=== PATIENT | female | born 1960 | race Caucasian/White ===

== ENCOUNTER 2024-01-24 18:10 | Inpatient (IN) | payer MEDICARE, SELFPAY ==
[2024-01-24] VITALS (9 sets, daily range): BP systolic 95–117; BP diastolic 48–75; BMI 21.1
--- NOTE | 2024-01-24 15:00 | ED.GENMED ---
History of Present Illness
General
Chief Complaint: Dizziness
Time Seen by Provider: 01/24/24 15:00
History of Present Illness
History of Present Illness:
HPI: COVID 1M ago - weak since then. 1.5wks of dizziness intermittently. Worse when gets up and moves around. 3 days ago, she had vomiting and diarrhea which resolved after a day. No associated pain. When she had the diarrhea the other day, she
noted that it was dark brown to almost black. She admits to Excedrin and Motrin use.
EXAM:
GENERAL: Fairly well appearing in no distress but appears somewhat pale
HEENT: Moist oral mucosa, ear canals are clear, normal TMs
CARDIOVASCULAR: No murmurs, normal heart rate, regular rhythm, No chest wall tenderness
PULMONARY: No respiratory distress, breath sounds are clear and equal
ABDOMEN: Soft with no peritoneal signs, no tenderness
NEUROLOGIC: Excellent strength all extremities, no coordination deficits, normal finger-nose testing, normal fgmo-ij-hbol testing
PSYCHIATRIC: Appropriate mental status, normal insight and judgement
EXTREMITIES: Nontender, no edema, moves all extremities equally
SKIN: Appears somewhat pale
TIME OF INITIAL ENCOUNTER: 3:20 PM
NUMBER AND COMPLEXITY OF PROBLEMS ADDRESSED AT THE ENCOUNTER
� Chronic conditions affecting care: High blood pressure, hyperlipidemia, breast cancer�not metastatic and had a left mastectomy
� Acute Exacerbation and/or Progression of Chronic Illness: This is an acute problem
� Differential Diagnosis includes: Dehydration, BERENICE, anemia, BPPV
AMOUNT AND/OR COMPLEXITY OF DATA TO BE REVIEWED AND ANALYZED
� I performed an independent evaluation of and my interpretation is:
EKG: Sinus 115, nonspecific ST abnormality
CT:
X-rays:
Laboratory Studies: Hemoglobin today 6.5, white count 6.5, BUN millimeter elevated, normal creatinine.
Other:
� Review of other/old records: I reviewed blood work from 1 year ago�at that time hemoglobin is 10.8,
� Clinical information was obtained by an independent historian: I spoke to bedside
� Prescriptions/Medications Considered but not given:
� Further testing considered but not performed:
RISK OF COMPLICATIONS AND/OR MORBIDITY OR MORTALITY OF PATIENT MANAGEMENT
� Social determinants of health affecting care: Lives at home
� Discussion with other providers: Notified gastroenterology and hospitalist for admission, Dr. Putnam at 3:40 PM
� Escalation of care including admission/observation vs risk of discharge considered: Suspect that the patient's weakness and dizziness are related to significant drop in hemoglobin now down to 6.5. Planning blood transfusion.
She uses Excedrin and Advil intermittently. Will give 2 units of blood and Protonix.
Past History
Past History
ED Past Medical History: HTN and Hypercholesterolemia
Social History
Employment: Employed
Phy Exam
Physical Exam
Physical Exam:
See HPI
Course
Orders/Labs/Results
Orders:
Orders
01/24/24 14:30
EKG [Electrocardiogram (*1)] Urgent
Reason for Study: Vertigo / Dizzy
EKG- Treatment ONCE
01/24/24 15:05
Type+Screen Urgent
Basic Metabolic Panel Urgent
Complete Blood Count/With Diff Urgent
01/24/24 15:26
Add On- LAB Urgent
Tests Added?: iron, TIBC, ferritin
* Blood Bank Products Urgent
Blood Bank Products: *Packed RBC Leuko(PRBC's)
Quantity: 2
Transfuse Today: Yes
Reason: Anemia
01/24/24 15:29
0.9% Sodium Chloride 1000 ml [Nss] 1,000 ml IV BOLUS
01/24/24 15:37
Pantoprazole [Protonix IV] 40 mg IV NOW STA
01/24/24 15:44
ABO2 Urgent
BBK Wristband Number:
Associate notified that ABO2 has been ordered: [id number]
Date: 01/24/24
Time: 15:21
Reed Maker ID: [id number]
Abnormal Lab Results
01/24/24
15:05
RBC 1.96 L 10^6/uL
(4.20-5.40)
Hgb 6.5 L* g/dL
(12.0-16.0)
Hct 19.6 L* %
(37.0-47.0)
MCV 100.0 H fL
(81.0-99.0)
MCH 33.2 H pg
(27.0-31.0)
RDW 16.1 H %
(11.5-14.5)
Carbon Dioxide 21 L mmol/L
(22-30)
BUN 22 H mg/dl
(7-17)
Glucose 117 H mg/dl
(70-99)
01/24/24 15:05
01/24/24 15:05
Vital Signs
Initial and Last Documented VS:
Initial Vital Signs
Temp Pulse Resp BP Pulse Ox
98.3 F 95 20 95/57 100
01/24/24 14:32 01/24/24 14:32 01/24/24 14:32 01/24/24 14:32 01/24/24 14:32
Last Documented Vital Signs
Temp Pulse Resp BP Pulse Ox
98.3 F 93 22 95/57 100
01/24/24 14:32 01/24/24 15:45 01/24/24 15:45 01/24/24 14:32 01/24/24 14:32
*Critical Care Note
Total Time (30-74mins, 75-104mins- exclusive of procedures): Not Applicable
ED Attending Note
-
Portions of this chart may have been created with voice recognition software.� Occasional wrong word or��sound alike� substitutions may have occurred due to the inherent limitations of voice recognition software.
Discharge Plan
Departure
Patient Disposition: Admit
Date of Disposition: 01/24/24
Time of Disposition: 15:46
Presentation/result/management discussed w/ accepting MD/DO: Hospitalist
Discharge Problem:
Symptomatic anemia
Interventions
Interventions:
*Risk Screen - Suicide Last Done: 01/24/24 14:32
*General Assessment Last Done: 01/24/24 14:32
*Neglect/Abuse Screening Last Done: 01/24/24 14:32
Discharge Date and Time
Print Language: YORUBA
[2024-01-24 15:21] LABS: % Basophils 0.9 % (0-2); % Eosinophils 1.3 % (0-6); % Immature Granulocytes 0.3 % (0-0.5); % Lymphocytes 23.1 % (20.5-51.1); % Monocytes 8.6 % (1.7-9.3); % Neutrophils 65.7 % (42.2-75.2); Absolute Basophils 0.1 10^3/uL (0-0.2); Absolute Eosinophils 0.1 10^3/uL (0-0.7); Absolute Lymphocytes 1.6 10^3/uL (1.2-3.4); Absolute Monocytes 0.6 10^3/uL (0.1-0.6); Absolute Neutrophils 4.3 10^3/uL (1.4-6.5); Hematocrit 19.6 % (37.0-47.0); Hemoglobin 6.5 g/dL (12.0-16.0); Mean Corp Hgb Conc. 33.2 g/dL (33.0-37.0); Mean Corpuscular Hgb 33.2 pg (27.0-31.0); Mean Platelet Volume 9.5 fL (7.4-10.4); Nucleated Red Blood Cells % 0.3 %; Platelet Count 342 10^3/uL (130-400); Red Blood Cell Count 1.96 10^6/uL (4.20-5.40); Red Cell Dist. Width 16.1 % (11.5-14.5); White Blood Cell Count 6.5 10^3/uL (4.8-10.8)
[2024-01-24 15:35] LABS: Blood Urea Nitrogen 22 mg/dl (7-17); Calcium 9.5 mg/dl (8.4-10.2); Carbon Dioxide 21 mmol/L (22-30); Chloride 98 mmol/L (98-107); Glucose 117 mg/dl (70-99); Sodium 135 mmol/L (135-145); eGFR > 60.00
--- NOTE | 2024-01-24 15:52 | HPS.HSE ---
Family Physician
-
Family Physician:
Chief Complaint
-
dizziness
History of Present Illness
64F HTN HLD Chronic Headache on daily Excedrin Depression remote hx Breast Ca 2021 p/w progressive intermittent dizziness. Approximately 7 days patient had an episode of abd pain nausea vomiting diarrhea w/ dark/black stools. Overall patient
improved with intermittent bouts of diarrhea next few days before developing constipation and appetite loss. Denies abd pain. Nausea vomiting resolved. Intermittent episodes of dizziness however became more severe and frequent prompting visit to
ED. Notable pallor as per significant other boyfriend of 30 years. Low normotensive pressures with hx htn. Patient was found to have severe anemia Hgb 6.5. Patient symptomatically improved with bedrest and IVF.
Medical History
Past Medical History
Past Medical History: Reports Other (as above)
Past Surgical History: Reports Other (as above)
Social History
Tobacco: Former Smoker
Alcohol: Other (reports 2 glasses hard liquor vodka mixed drink 3x a week)
Drug: None
Personal: Partner (Boyfriend of 30 years Yoel)
Living: Alone
Employment: Retired
Family History
Family History: Not pertinent (reviewed)
Allergies / Home Medications
Allergies reflects when Allergies were last updated in [facility].
Home Medications with original date entered in [facility]
Allergy/Medication List:
Allergies
Allergy/AdvReac Type Severity Reaction Status Date / Time
No Known Allergies Allergy Verified 01/24/24 14:35
Home Medications
emwmpno-cgahwvdhylanj-haygvexe 250 mg-250 mg-65 mg tablet (Excedrin Extra Strength) 1 tab PO DAILYPRN PRN headache 01/24/24
gabapentin 300 mg capsule 300 mg PO DAILYPRN PRN neuropathy 01/24/24
melatonin 2.5 mg chewable tablet 2.5 mg PO HSPRN PRN sleep 01/24/24
pantoprazole 20 mg tablet,delayed release 40 mg PO DAILYPRN PRN heartburn 10/01/24
paroxetine HCl 20 mg tablet 20 mg PO DAILY 01/24/24
simvastatin 20 mg tablet 20 mg PO QPM 01/24/24
therapeutic multivitamin 1 tab PO DAILYPRN PRN supplement 01/24/24
valsartan 160 mg tablet 160 mg PO DAILY 01/24/24
Review of Systems
-
A 12 point ROS was completed and negative except as noted: Yes
Constitutional: Reports Other (as below)
Physical Exam
Vital Signs
Vital Signs
Temp Pulse Resp BP Pulse Ox
98.3 F 93 22 95/57 100
01/24/24 14:32 01/24/24 15:45 01/24/24 15:45 01/24/24 14:32 01/24/24 14:32
Physical Exam
General: Other (as below)
Laboratory Results
-
01/24/24 15:05
01/24/24 15:05
Laboratory Results
Total Bilirubin Cancelled 01/24/24 15:05
AST Cancelled 01/24/24 15:05
ALT Cancelled 01/24/24 15:05
Alkaline Phosphatase Cancelled 01/24/24 15:05
Impression/Plan
-
ROS
General: Denies fever chills night sweats unexpected weight loss
Neuro: Denies seizure shaking loss of consciousness reports intermittent progressive dizziness/lightheadedness
Psych: denies depression hallucinations confusion manic episodes
Endocrine: Denies polyuria polydipsia polyphagia heat/cold intolerance
HEENT: Denies blindness visual disturbances epistaxis
Pulmonary: denies coughing hemoptysis sneezing sob dyspnea on exertion
Cardiovascular: denies chest pain palpitations leg swelling
Hematology: denies signs symptoms of anemia easy bruising/bleeding
Gastrointestinal: Reports previous episode nausea vomiting diarrhea abd pain dark stools currently endorses constipation flatus+
Genito-Urinary: denies retention incontinence dysuria
Musculoskeletal: denies joint pain weakness
Dermatology: denies rash laceration bruising
Physical Exam
General: No cyanosis, or jaundice. Pallor noted
HEENT: Throat clear. PERRLA Normocephalic atraumatic, pale palpebral conjunctiva
NECK: Supple. No JVD Carotid Bruits
RESPIRATORY: Lungs clear to auscultation. No crackles wheezes stridor
CVS: S1, S2 normal. RRR. No murmur, rub or gallop.
ABDOMEN: Soft, non-tender. No distension. Decreased Bowel Sounds
EXTREMITIES: No peripheral cyanosis or edema.
POOLROOM TABLE ATTENDANT: AOx3
IMPRESSION:
64F HTN HLD Chronic Headache on daily Excedrin Depression remote hx Breast Ca 2021 p/w progressive intermittent dizziness. Approximately 7 days patient had an episode of abd pain nausea vomiting diarrhea w/ dark/black stools. Overall patient
improved with intermittent bouts of diarrhea next few days before developing constipation and appetite loss. Denies abd pain. Nausea vomiting resolved. Intermittent episodes of dizziness however became more severe and frequent prompting visit to
ED. Notable pallor as per significant other boyfriend of 30 years. Low normotensive pressures with hx htn. Patient was found to have severe anemia Hgb 6.5. Patient symptomatically improved with bedrest and IVF.
PLAN:
#Severe Anemia suspected 2/2 UGIB NSAID induced
#Dizziness likely 2/2 symptomatic anemia
Tele Admit
GI eval appreciated NPO after midnight for EGD
Clear liquid diet for today
2PRBC transfusions ordered in ED, follow up post-transfusion response w/ AM labs
Transfuse prn Hgb<8 given concern active bleeding
Hold further NSAID use
protonix gtt
fall precautions
#HTN
hold home valsartan given soft pressures
consider resuming at reduced dosage depending on BP trend
#HLD
cont statin
#Chronic Headache for years per patient
Tylenol PRN
avoid NSAID
#Depression
cont home paroxetine
#Possible ETOH use disorder/Binge drinking
endorses drinking hard liquor mixed drinks 2 glasses 3x a week
positive ETOH screening protocol per nurse assessment
-per report, weekly having >4 drinks a day in past 6 months
MSAS protocol for now
folate thiamine supplementation
denies hx ETOH withdrawal
dvt ppx SCD
Full Code
discussed with patient, patient's significant other Yoel, and GI
I spent a total of 76 minutes with the patient or on the floor. More than 50% of this time involved counseling and coordination of care.
[2024-01-24] MEDS: PROTONIX IV 40 MG IV ×2 (16:07→21:22)
[2024-01-24] MEDS: NSS 1000 IV (16:07)
[2024-01-24 18:00] LABS: Iron 88 ug/dl (37-170)
[2024-01-24 18:09] LABS: Percent Saturation 29 % (20-50); Total Iron Binding Capacity 302 ug/dl (265-497)
[2024-01-24] MEDS: THIAMINE INJECTION 200 MG IV (20:17)
[2024-01-24] MEDS: LIPITOR 10 MG PO (20:18)
[2024-01-24] MEDS: PROTONIX 100 IV (20:22)
[2024-01-24] MEDS: NSS (PRESERVATIVE FREE) 10 ML IV (21:22)
[2024-01-24 21:26] LABS: APTT 22.7 Sec (23.4-35.0)
[2024-01-24] MEDS: PROTONIX IV (21:28)
[2024-01-25] VITALS (9 sets, daily range): BP systolic 93–134; BP diastolic 53–72
[2024-01-25] MEDS: MELATONIN 2.5 MG PO
[2024-01-25] MEDS: PROTONIX 100 IV (04:46)
--- NOTE | 2024-01-25 07:17 | W.PN.HOSP.TC ---
Today's Communication/Plan
-
monitor H&H
diet as per GI
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
Likely discharge tomorrow if remains stable/continues to improve
Assessment / Plan
Assessment / Plan
Physical Exam
General: No cyanosis, or jaundice. Pallor noted improved
HEENT: Throat clear. PERRLA Normocephalic atraumatic
NECK: Supple. No JVD Carotid Bruits
RESPIRATORY: Lungs clear to auscultation. No crackles wheezes stridor
CVS: S1, S2 normal. RRR. No murmur, rub or gallop.
ABDOMEN: Soft, non-tender. No distension. Decreased Bowel Sounds
EXTREMITIES: No peripheral cyanosis or edema.
ROBOT TECHNICIAN: AOx3
IMPRESSION:
64F HTN HLD Chronic Headache on daily Excedrin Depression remote hx Breast Ca 2021 p/w progressive intermittent dizziness. Approximately 7 days patient had an episode of abd pain nausea vomiting diarrhea w/ dark/black stools. Overall patient
improved with intermittent bouts of diarrhea next few days before developing constipation and appetite loss. Denies abd pain. Nausea vomiting resolved. Intermittent episodes of dizziness however became more severe and frequent prompting visit to
ED. Notable pallor as per significant other boyfriend of 30 years. Low normotensive pressures with hx htn. Patient was found to have severe anemia Hgb 6.5. Patient symptomatically improved with bedrest and IVF.
PLAN:
#Severe Anemia suspected 2/2 UGIB NSAID induced
#Dizziness likely 2/2 symptomatic anemia
Tele Admit, stable since admission, ok to discontinue cardiac monitoring
responded appropriately to 2PRBC transfusions
Hold further NSAID use
GI eval appreciated s/p EGD
-3 nonbleeding ulcers noted in duodenum
-non-obstructing Schatzki ring
-small hiatal hernia
-erythema gastric body antrum biopsied
protonix gtt converted to PO BID for 2 months then daily
repeat EGD and colonoscopy in 3 months recommended
#HTN
hold home valsartan given soft pressures
consider resuming at reduced dosage depending on BP trend
#HLD
cont statin
#Chronic Headache for years per patient
Tylenol PRN
avoid NSAID
#Depression
cont home paroxetine
#Possible ETOH use disorder/Binge drinking
endorses drinking hard liquor mixed drinks 2 glasses 3x a week
positive ETOH screening protocol per nurse assessment
-per report, weekly having >4 drinks a day in past 6 months
MSAS protocol for now
folate thiamine supplementation
denies hx ETOH withdrawal
dvt ppx SCD
Full Code
discussed with patient and her sister Zenia
I spent a total of 50 minutes with the patient or on the floor. More than 50% of this time involved counseling and coordination of care.
Anticipated Discharge: Within 24 hours
Subjective/Interval History
-
Date of Service: January 25, 2024
No acute distress reports feeling well. S/P EGD. tolerating diet. Denies dizziness headache.
Objective Data
-
Labs:
Laboratory Results
01/24/24 01/24/24 01/25/24
15:05 20:40 06:00
WBC Pending
Hgb Pending
Hct Pending
Plt Count Pending
PT 14.0
INR 1.10
APTT 22.7 L
Sodium 135 Pending
Potassium Pending
Chloride 98 Pending
Carbon Dioxide 21 L Pending
BUN 22 H Pending
Creatinine 0.7 Pending
Glucose 117 H Pending
Calcium 9.5 Pending
Total Bilirubin Cancelled
AST Cancelled
ALT Cancelled
Alkaline Phosphatase Cancelled
Vital Signs:
Vital Signs
Temp Pulse Resp BP Pulse Ox
98.4 F 80 16 103/58 99
01/25/24 04:49 01/25/24 03:55 01/25/24 03:55 01/25/24 03:55 01/25/24 03:55
I&O
01/24/24 01/25/24 01/26/24
06:59 06:59 06:59
Intake Total 1100 / 1100
Balance 1100 / 1100
[2024-01-25] MEDS: FOLVITE 1 MG PO (09:19)
[2024-01-25] MEDS: THIAMINE INJECTION 200 MG IV ×2 (09:19→20:03)
[2024-01-25] MEDS: PAXIL 20 MG PO (09:33)
[2024-01-25 09:34] LABS: Hemoglobin 8.4 g/dL (12.0-16.0); Mean Corp Hgb Conc. 33.6 g/dL (33.0-37.0); Mean Corpuscular Hgb 30.5 pg (27.0-31.0); Mean Corpuscular Volume 90.9 fL (81.0-99.0); Mean Platelet Volume 9.5 fL (7.4-10.4); Platelet Count 234 10^3/uL (130-400); Red Blood Cell Count 2.75 10^6/uL (4.20-5.40); Red Cell Dist. Width 19.2 % (11.5-14.5); White Blood Cell Count 6.2 10^3/uL (4.8-10.8)
--- NOTE | 2024-01-25 11:02 | W.PN.UPDATE ---
Update Note
Progress Note Update
EGD with clean based duodenal ulcers and gastric erosions with gastritis, HH and schatzki ring, no active bleeding or stigmata seen. Will DC PPI gtt and switch to PO PPI bid, repeat EGd with colo in 3 months, AVOID NSAIDs. OK to DC home today
--- NOTE | 2024-01-25 12:00 | PTCARENOTE ---
Received patient from PACU s/p EGD. AAox3, assisted to bed. No complaints at present time. Call jones in close reach.
[2024-01-25 12:31] LABS: Blood Urea Nitrogen 14 mg/dl (7-17); Calcium 9.1 mg/dl (8.4-10.2); Carbon Dioxide 26 mmol/L (22-30); Chloride 105 mmol/L (98-107); Estimated Creatinine Clearance 65 ml/min; Glucose 91 mg/dl (70-99); Potassium 4.3 mmol/L (3.5-5.1); Sodium 138 mmol/L (135-145); eGFR > 60.00
--- NOTE | 2024-01-25 16:20 | CM ---
met with patient at bedside.patient lives alone in [facility] with [address],her bed and bath is on the second level,she amb i,is i with her adl. she has had a vn after breast surgery.she has never been in ip rehab.
PCP: dr justyna huntley [facility]
PMH:depression,breast cancer 2021,headaches
patient has declined b cares support or resources
patient is adm with suspected upper gi bleed.she had an upper endosopy,po protonix,thiamine injections.plan: patient is totally I.patient will dc home with no needs.boyfriend will stay with her .
[2024-01-25] MEDS: LIPITOR 10 MG PO (17:23)
[2024-01-25 18:34] LABS: Hematocrit 25.1 % (37.0-47.0); Hemoglobin 8.6 g/dL (12.0-16.0)
[2024-01-25] MEDS: PROTONIX 40 MG PO (20:03)
[2024-01-26] MEDS: MELATONIN 2.5 MG PO
--- NOTE | 2024-01-26 07:29 | W.PN.HOSP.TC ---
Today's Communication/Plan
-
discharge
Assessment / Plan
Assessment / Plan
Physical Exam
General: No cyanosis or jaundice. Mild pallor
HEENT: Throat clear. PERRLA Normocephalic atraumatic
NECK: Supple. No JVD Carotid Bruits
RESPIRATORY: Lungs clear to auscultation. No crackles wheezes stridor
CVS: S1, S2 normal. RRR. No murmur, rub or gallop.
ABDOMEN: Soft, non-tender. No distension. Decreased Bowel Sounds
EXTREMITIES: No peripheral cyanosis or edema.
SUPERVISOR HEAT TREATING: AOx3
IMPRESSION:
64F HTN HLD Chronic Headache on daily Excedrin Depression remote hx Breast Ca 2021 p/w progressive intermittent dizziness. Approximately 7 days patient had an episode of abd pain nausea vomiting diarrhea w/ dark/black stools. Overall patient
improved with intermittent bouts of diarrhea next few days before developing constipation and appetite loss. Denies abd pain. Nausea vomiting resolved. Intermittent episodes of dizziness however became more severe and frequent prompting visit to
ED. Notable pallor as per significant other boyfriend of 30 years. Low normotensive pressures with hx htn. Patient was found to have severe anemia Hgb 6.5. Patient symptomatically improved with bedrest and IVF.
PLAN:
#Severe Anemia suspected 2/2 UGIB NSAID induced
#Dizziness likely 2/2 symptomatic anemia
Tele Admit, stable since admission, ok to discontinue cardiac monitoring
responded appropriately to 2PRBC transfusions
Hold further NSAID use
GI eval appreciated s/p EGD
-3 nonbleeding ulcers noted in duodenum
-non-obstructing Schatzki ring
-small hiatal hernia
-erythema gastric body antrum biopsied
protonix gtt converted to PO BID for 2 months then daily
repeat EGD and colonoscopy in 3 months recommended
H&H improving
B12 deficiency noted, supplementation started
#HTN
hold home valsartan given soft pressures
consider resuming at reduced dosage depending on BP trend
#HLD
cont statin
#Chronic Headache for years per patient
Tylenol PRN
avoid NSAID
#Depression
cont home paroxetine
#Possible ETOH use disorder/Binge drinking
endorses drinking hard liquor mixed drinks 2 glasses 3x a week
positive ETOH screening protocol per nurse assessment
-per report, weekly having >4 drinks a day in past 6 months
MSAS protocol for now
folate thiamine supplementation
denies hx ETOH withdrawal
No significant ETOH withdrawal symptoms noted
counseled to reduce alcohol intake
dvt ppx SCD
Full Code
Medically stable for discharge home with outpatient follow up recommendations
I spent a total of 40 minutes with the patient or on the floor. More than 50% of this time involved counseling and coordination of care.
Anticipated Discharge: Today
Subjective/Interval History
-
Date of Service: January 26, 2024
Seen and examined at bedside in no acute distress. Reports overall feeling well. Denies new acute issues. Eager to go home.
Objective Data
-
Labs:
Laboratory Results
01/26/24
06:00
Hgb Pending
Hct Pending
Vital Signs:
Vital Signs
Temp Pulse Resp BP Pulse Ox
98.2 F 85 16 114/60 98
01/25/24 23:35 01/25/24 23:35 01/25/24 23:35 01/25/24 23:35 01/25/24 23:35
I&O
01/25/24 01/26/24 01/27/24
06:59 06:59 06:59
Intake Total 1100 / 1100 960 / 960
Balance 1100 / 1100 960 / 960
[2024-01-26 08:11] VITALS: BP 105/64
[2024-01-26] MEDS: PAXIL 20 MG PO (08:27)
[2024-01-26] MEDS: FOLVITE 1 MG PO (08:27)
[2024-01-26] MEDS: THIAMINE INJECTION 200 MG IV (08:27)
[2024-01-26] MEDS: PROTONIX 40 MG PO (08:27)
[2024-01-26 08:38] LABS: Hemoglobin 8.1 g/dL (12.0-16.0)
--- NOTE | 2024-01-26 08:44 | W.PN.GI.CBS2 ---
Today's Communication / Plan
-
repeat HH at noon and if stable OK to DC
Assessment / Plan
-
Acute blood loss anemia secondary to upper GI bleed
Status post EGD 01/24 which showed HH, gastritis, gastric erosions and nonbleeding duodenal ulcers with no stigmata
Hemoglobin improved post 2 units of packed red blood cells, slight drop today with 2 episodes of small black stools yesterday which I think may be old blood doubt recurrent bleeding
Continue diet and repeat H&H around 12 PM if stable okay to DC home today
Repeat EGD along with colonoscopy in 3 months
Continue PPI twice daily for 2 months and then can use daily
Told her to avoid NSAIDs use and she is going to see her PCP for alternative medications for her headaches
Subjective
Subjective
Date of Service: January 26, 2024
She had 2 small black stools yesterday hemoglobin today is 8.1 down from 8.4 yesterday posttransfusion. No abdominal pain no vomiting or hematemesis
Objective
Data Reviewed
Laboratory Data:
Laboratory Results
01/26/24 08:00
01/25/24 08:50
Laboratory Results
PT 14.0 Sec (11.4-14.6) 01/24/24 20:40
INR 1.10 01/24/24 20:40
APTT 22.7 Sec (23.4-35.0) L 01/24/24 20:40
Magnesium 2.0 mg/dl (1.6-2.3) 01/25/24 08:50
Total Bilirubin Cancelled 01/24/24 15:05
AST Cancelled 01/24/24 15:05
ALT Cancelled 01/24/24 15:05
Alkaline Phosphatase Cancelled 01/24/24 15:05
Vital Signs and I&O:
Vital Signs
Temp Pulse Resp BP Pulse Ox
98 F 76 18 105/64 98
01/26/24 08:11 01/26/24 08:11 01/26/24 08:11 01/26/24 08:11 01/26/24 08:11
I&O
01/25/24 01/26/24 01/27/24
06:59 06:59 06:59
Intake Total 1100 / 1100 960 / 960
Balance 1100 / 1100 960 / 960
01/25/24 EGD
Impression: - Non-obstructing Schatzki ring.
- Small hiatal hernia.
- Erosive gastropathy with no bleeding and no stigmata
of recent bleeding.
- Erythematous mucosa in the gastric body and antrum.
Biopsied.
- Non-bleeding duodenal ulcers with no stigmata of
bleeding.
- Normal second portion of the duodenum.
Physical Exam
Physical Exam
Cardiology: Normal Sinus Rhythm
Pulmonary: Clear
GI: Soft, Non Distended, Non Tender and Normal Bowel Sounds
--- NOTE | 2024-01-26 09:14 | W.PN.UPDATE ---
Update Note
Progress Note Update
Discussed with patient and updated her with the lab result hemoglobin drifted down to 8.1 told her to be n.p.o. for now, will repeat CBC at 10 AM and if hemoglobin is dropping further will schedule for second look endoscopy to rule out recurrent
bleeding but if hemoglobin is stable then will resume diet and DC home.
[2024-01-26 10:36] LABS: % Basophils 0.6 % (0-2); % Immature Granulocytes 0.4 % (0-0.5); % Lymphocytes 25.4 % (20.5-51.1); % Monocytes 9.7 % (1.7-9.3); % Neutrophils 61.9 % (42.2-75.2); Absolute Eosinophils 0.1 10^3/uL (0-0.7); Absolute Lymphocytes 1.8 10^3/uL (1.2-3.4); Absolute Monocytes 0.7 10^3/uL (0.1-0.6); Absolute Neutrophils 4.4 10^3/uL (1.4-6.5); Mean Corp Hgb Conc. 33.2 g/dL (33.0-37.0); Mean Corpuscular Volume 93.4 fL (81.0-99.0); Nucleated Red Blood Cells % 0 %; Platelet Count 259 10^3/uL (130-400); Red Blood Cell Count 2.58 10^6/uL (4.20-5.40); Red Cell Dist. Width 19.7 % (11.5-14.5)
[2024-01-26 11:17] LABS: Folate 8.3 ng/ml (2.76-20); Vitamin B12 286 pg/ml (239-931)
[2024-01-26 11:54] LABS: % Basophils 0.6 % (0-2); % Eosinophils 1.4 % (0-6); % Immature Granulocytes 0.5 % (0-0.5); % Lymphocytes 21.4 % (20.5-51.1); % Monocytes 8.9 % (1.7-9.3); % Neutrophils 67.2 % (42.2-75.2); Absolute Eosinophils 0.1 10^3/uL (0-0.7); Absolute Lymphocytes 1.4 10^3/uL (1.2-3.4); Absolute Monocytes 0.6 10^3/uL (0.1-0.6); Absolute Neutrophils 4.5 10^3/uL (1.4-6.5); Hematocrit 25.5 % (37.0-47.0); Hemoglobin 8.7 g/dL (12.0-16.0); Mean Corp Hgb Conc. 34.1 g/dL (33.0-37.0); Mean Corpuscular Hgb 31.3 pg (27.0-31.0); Mean Corpuscular Volume 91.7 fL (81.0-99.0); Mean Platelet Volume 9.3 fL (7.4-10.4); Nucleated Red Blood Cells % 0 %; Platelet Count 278 10^3/uL (130-400); Red Blood Cell Count 2.78 10^6/uL (4.20-5.40); Red Cell Dist. Width 19.6 % (11.5-14.5); White Blood Cell Count 6.6 10^3/uL (4.8-10.8)
--- NOTE | 2024-01-26 12:09 | W.PN.UPDATE ---
Update Note
Progress Note Update
Noted results of CBC at 10 AM hemoglobin stable at 8.7 will resume diet and okay to DC home today for outpatient repeat endoscopy along with colonoscopy in 3 months
--- NOTE | 2024-01-26 14:00 | W.DCSUMMARY ---
Discharge Summary
Discharge Data
Date of Admission: 01/24/24
Date of Discharge: 01/26/24
-
Pending Results: Yes
Additional Pending Results:
Biopsy results
Discharge Plan
-
Patient Disposition: Home (Routine Discharge)
Discharge Diagnosis/Procedures: Severe Symptomatic Anemia likely due to Upper GI bleed caused by peptic ulcer disease (NSAID induced)
B12 Deficiency also likely contributing to anemia
History Hypertension
Possible Alcohol Use Disorder/History Binge Drinking
Condition: Fair
Diet: Low Residue
Additional Diets: after 1 week from discharge, ok to advance diet as tolerated
Activity: As tolerated
Driving Restrictions: As prior to admission
Bathing Restrictions: None
Blood Work: With primary care provider, please repeat CBC in 1 week of discharge and B12 in 1 month
Others Tests: Please follow up with GI in 3 months for repeat EGD and Colonscopy
Activity Restrictions/Additional Instructions:
Please follow up with primary care provider in 1 week of discharge and GI in 3 months of discharge.
B12 supplementation has been prescribed for deficiency.
Protonix has been prescribed for peptic ulcer disease, NSAID induced. Continue with protonix 40 mg oral twice a day for 2 months then reduce to daily from then on until otherwise instructed by GI or your primary care provider.
Excedrin has been discontinued as medication has likely contributed to GI ulcer formation. At this time is recommended that you avoid NSAID medications or medications containing NSAID such as excedrin, ibuprofen, advil, aspirin, toradol etc.
Home Valsartan medication remains on hold at this time due to soft though normal blood pressures. Keep a daily log of your pressures at home and follow up with your primary care provider to determine when safe to resume valsartan, if necessary to
resume, and/or if an alternative agent is required instead.
Please take medications as prescribed/recommended and follow up with your primary care provider, GI, and/or other healthcare provider involved in your care for refills and/or further adjustment to your medication regimen as necessary.
With regards to Alcohol use:
-It is recommended that you avoid excess alcohol intake as this will likely lead to return/worsening of symptoms
-Avoid binge drinking defined as 4 or more drinks in a single occasion for women.
-Avoid heavy drinking defined as 8 or more drinks in a week for women.
Referrals:
Page Feliz MD [Family Provider] - in one week
Vaishali Peoples MD [Active] - (Follow up with GI in 3 months of discharge. )
Prescriptions:
New
cyanocobalamin (vitamin B-12) 1,000 mcg Tablet
1,000 mcg PO DAILY 30 Days Qty: 30 0RF
pantoprazole 40 mg Tablet,Delayed Release (Dr/Ec)
40 mg PO BID 60 Days Qty: 120 0RF
Rx Instructions:
Reduce to daily after this regimen completes. Follow up with primary or GI for new prescription
Continued
paroxetine HCl 20 mg tablet
20 mg PO DAILY
simvastatin 20 mg tablet
20 mg PO QPM
gabapentin 300 mg capsule
300 mg PO DAILYPRN PRN (Reason: neuropathy)
therapeutic multivitamin Tablet
1 tab PO DAILYPRN PRN (Reason: supplement)
melatonin 2.5 mg Tablet,Chewable
2.5 mg PO HSPRN PRN (Reason: sleep)
Held
valsartan 160 mg tablet
160 mg PO DAILY
Hold Instructions: On hold due to soft pressures though normal. Please keep a daily log of your pressures at home and follow up with primary care provider to determine when safe to resume, if necessary to resume, and/or if an alternative agent
is required instead.
Discontinued
pantoprazole 20 mg tablet,delayed release (DR/EC)
40 mg PO DAILYPRN PRN (Reason: heartburn)
Excedrin Extra Strength 250-250-65 mg Tablet
1 tab PO DAILYPRN PRN (Reason: headache)
Discharge Orders:
Discharge Patient (As Directed); Ordered 01/26/24
Ordered By: Arik Brown
Discharge Date and Time
Print Language: CROATIAN
[2024-01-26] MEDS: VITAMIN B-12 1000 MCG PO (14:45)
[2024-01-26] MEDS: FLUAD (65 yr+) 2024-2025 FORMULA 0.5 ML IM (15:00)
[2024-01-26 15:04] VITALS: BP 128/67
== END 2024-01-26 15:26 | disposition home or self-care (01) | DRG 378 ==
LOC: 4 EAST ACU 18:10
PROVIDERS: Internal Medicine Gastroenterology; ADMITTING PHYSICIAN Internal Medicine; EMERGENCY PHYSICIAN Emergency Medicine; FAMILY PHYSICIAN Family Medicine
PROC: 30233N1 Transfusion of Nonautologous Red Blood Cells into Peripheral Vein, Percutaneous Approach (ICD-10-PCS; 2024-01-24)
PROC: 0DB68ZX Excision of Stomach, Via Natural or Artificial Opening Endoscopic, Diagnostic (ICD-10-PCS; 2024-01-25)
DX: K26.4 Chronic or unspecified duodenal ulcer with hemorrhage (principal); D62 Acute posthemorrhagic anemia; K29.01 Acute gastritis with bleeding; K22.2 Esophageal obstruction; K44.9 Diaphragmatic hernia without obstruction or gangrene; K31.89 Other diseases of stomach and duodenum; T39.395A Adverse effect of other nonsteroidal anti-inflammatory drugs [NSAID], initial encounter; E53.8 Deficiency of other specified B group vitamins; I10 Essential (primary) hypertension; E78.00 Pure hypercholesterolemia, unspecified; F32.A Depression, unspecified; F10.10 Alcohol abuse, uncomplicated; Z85.3 Personal history of malignant neoplasm of breast; Z78.9 Other specified health status
CPT/HCPCS: 88305; 80048; 82607; 82728; 82746; 83540; 83550; 83735; 85014; 85018; 85025; 85027; 85610; 85730; 86850; 86900; 86901; 86920; 88342; 90662; 93005; 96361; 96374; 99285; G0008; P9016

== ENCOUNTER → 2024-01-28 10:02 | Outpatient (REF) | payer MEDICARE, SELFPAY ==
--- NOTE | 2024-01-24 16:33 | CON.GI ---
Consultation
-
Date/Time Consultation Requested: 01/24/24
Date/Time Consultation Performed: 01/24/24
Requesting Provider:
Performing Provider:
Reason for Consultation: UGIB
Medical History
Chief Complaint / HPI
Chief Complaint: melena, dizziness
History of Present Illness:
This is a pleasant 64-year-old female with past medical history of hypertension, hyperlipidemia, breast cancer diagnosed and treated in August 2021, GERD, chronic headaches, COVID in November 2023 who was in her usual state of health up until Tuesday
when she started to experience symptoms of nausea vomiting 3 episodes she had eaten pizza prior to that so she is unsure if she had hematemesis and then she started to have profound dizziness and weakness and she also had 2 episodes of dark stools
on Tuesday and 1 episode on and none since then. She now presented to the emergency room with symptoms of dizziness and her hemoglobin was noted to be 6.5 and on 02/16/2023 was 10.8, BUN was mildly elevated at 22. She takes Excedrin
extra strength 2 pills daily for the past couple of years for chronic headaches. She currently denies any abdominal pain. She denies use of aspirin. She does have occasional reflux and uses pantoprazole as needed. She says that she also had
COVID in November and since then she has had loss of appetite and loss of taste and has been eating less since then. Her last colonoscopy was in 2014 she had diverticulosis and a benign HP, she has never had an endoscopy in the past.
Past Medical History
Past Medical History: Other (breast cancer, HTN, HLD, anxiety, chronic headaches, GERD)
Past Surgical History: Other (lumpectomy 2021 for breast cancer)
Social History
Tobacco: Smoker
Alcohol: Occasional
Drug: None
Personal:
Living: With Family
Family History
Family History: Other (mother breast and uterine ca age 73, no family history colon or pancreatic ca, brother prostate ca, father prostate ca.)
Allergies / Home Medications
Allergy/AdvReac Type Severity Reaction Status Date / Time
No Known Allergies Allergy Verified 01/24/24 14:35
�Medication �Instructions �Recorded
ythaivf-tjsnfjevzfyyy-jdyuncmw 250 1 tab PO DAILYPRN PRN headache 01/24/24
mg-250 mg-65 mg tablet (Excedrin
Extra Strength)
gabapentin 300 mg capsule 300 mg PO DAILYPRN PRN neuropathy 01/24/24
melatonin 2.5 mg chewable tablet 2.5 mg PO HSPRN PRN sleep 01/24/24
pantoprazole 20 mg tablet,delayed 40 mg PO DAILYPRN PRN heartburn 01/24/24
release
paroxetine HCl 20 mg tablet 20 mg PO DAILY 01/24/24
simvastatin 20 mg tablet 20 mg PO QPM 01/24/24
therapeutic multivitamin 1 tab PO DAILYPRN PRN supplement 01/24/24
valsartan 160 mg tablet 160 mg PO DAILY 01/24/24
Review of Systems
-
All other systems: A 12 pt ROS was Negative except as stated above in HPI
Physical Exam
Exam
General: No Apparent Distress
HEENT: Normocephalic
Respiratory: Clear
Cardiac: S1/S2
GI: Soft, Non Tender, Non Distended and Normal Bowel Sounds
Musculoskeletal: No Clubbing
Skin: Warm
Neuro: Awake, Alert and Oriented
Psych: Calm
Results
Diagnostic Image Results:
Laboratory Tests
02/16/23 01/24/24
09:37 15:05
WBC 6.5
Hgb 10.8 L 6.5 L*
MCV 100.0 H
Plt Count 342
Sodium 135
Chloride 98
Carbon Dioxide 21 L
BUN 22 H
Creatinine 0.7
Glucose 117 H
Prior GI Procedures:
EGD: none
Colonoscopy: 09/12 2014 Impression: - One 7 mm polyp in the sigmoid colon. Resected and
retrieved.- HP
- Diverticulosis in the descending colon, at the splenic
flexure and in the ascending colon.
- The distal rectum and anal verge are normal on
retroflexion view.
Assessment / Plan
-
1. Dizziness with significant acute blood loss anemia with melena on Tuesday and most likely related to upper GI bleed has not had any further episodes though since Tuesday. She is scheduled to receive 2 units of packed red blood cells
and monitor hemoglobin will schedule her for endoscopy tomorrow will be done sooner if she has further bleeding, Protonix bolus and drip . Most likely related to peptic ulcer disease from NSAID use she has been on Excedrin extra strength twice
daily for the past couple of years. Encouraged her to discontinue use of NSAIDs. She had her last colonoscopy in 2014 will also need repeat especially if the endoscopy is negative will be done as inpatient otherwise we can do as outpatient
Data Reviewed
-
Old Records: Reviewed
-
-
Thank you for consultation and allowing me to participate in the patient's care. Please call the emergency vehicle operations instructor GI physician during the after hours with any questions or concerns.
== END ==
LOC: WDC 10:02
PROVIDERS: ATTENDING PHYSICIAN Family Medicine
DX: Z12.31 Encounter for screening mammogram for malignant neoplasm of breast (principal)
CPT/HCPCS: 77063; 77067

== ENCOUNTER 2024-05-25 06:37 | Day surgery (SDC) | payer MEDICARE, SELFPAY | END 2024-05-25 14:10 | disposition home or self-care (01) | LOC: GI 06:37 | PROVIDERS: ATTENDING PHYSICIAN Internal Medicine Gastroenterology | DX: Z12.11 Encounter for screening for malignant neoplasm of colon (principal); K57.30 Diverticulosis of large intestine without perforation or abscess without bleeding; K26.4 Chronic or unspecified duodenal ulcer with hemorrhage; K21.00 Gastro-esophageal reflux disease with esophagitis, without bleeding; K22.2 Esophageal obstruction; K44.9 Diaphragmatic hernia without obstruction or gangrene; R12 Heartburn; Z86.0100 Personal history of colon polyps, unspecified; Z87.11 Personal history of peptic ulcer disease | CPT/HCPCS: 43239; G0105; 88305 ==

== ENCOUNTER 2025-01-24 12:01 | Inpatient (IN) | payer MEDICARE, SELFPAY ==
[2025-01-24] VITALS (19 sets, daily range): BP systolic 12–157; BP diastolic 61–94; PULSE 110–121; BMI 21.4
[2025-01-24] MEDS: PROTONIX IV 80 MG IV (09:58)
[2025-01-24] MEDS: PROTONIX 100 IV (09:58)
--- NOTE | 2025-01-24 10:02 | ED.GENMED ---
History of Present Illness
General
Chief Complaint: Rectal Bleeding
Source: patient and records
Time Seen by Provider: 01/24/25 09:33
History of Present Illness
History of Present Illness:
65-year-old female presents to the emergency room complaining of of rectal bleeding. Patient first noticed some very dark black stool a day or 2 ago. Over the past 24 hours she has had multiple episodes of large-volume stool which is maroon to
red. She has been feeling dizzy. She actually had 2 syncopal episodes over the past several hours when getting up to go to the bathroom. She does not take any oral anticoagulants. Patient states that she had an upper GI bleed approximately 1
year ago. She was on Protonix for a period of time but has since converted to Pepcid. She has an epigastric pain. Patient states she was recently started on a course of amoxicillin which she just completed. This was for sinus
congestion/infection. She was also started on a Medrol Dosepak. Today is the last day of that. Patient endorses moderate alcohol use. She denies smoking having quit 3 years ago.
Past History
Past History
ED Past Medical History: HTN and Hypercholesterolemia
Social History
Employment: Employed
Phy Exam
Physical Exam
Physical Exam:
General: Awake, Alert, Oriented X3. Pale, tachycardic
Vitals: Tachycardic
Head: Atraumatic
Eyes: Pupils equal, EOMI, pale mucosa
Throat: Airway intact, no exudates
Neck: Trachea midline
Lungs: Clear and equal b/l
Heart: Tachycardic, regular rate, no murmurs
Abd: Soft, Nontender, No pulsatile mass
Rectal: Dark maroon stool
Neuro: Nonfocal
Skin: Warm, dry, no rash
Extremities: pulses equal b/l, no edema
Course
Orders/Labs/Results
Orders:
Orders
01/24/25 09:53
* Blood Bank Products Urgent
Blood Bank Products: *Packed RBC Leuko(PRBC's)
Quantity: 1
Transfuse Today: Yes
Reason: Bleeding
Electrocardiogram (*1) Stat
Reason for Study: Other
Other Reason for Exam: GI Bleed
Cardiac Monitoring- Treatment ONCE
EKG- Treatment ONCE
IV Insert/Care/Rem.- Treatment PRN
Pantoprazole 80 mg/100 ml Nss [Protonix] 80 mg in 100 ml IV NOW
Pantoprazole [Protonix IV] 80 mg IV NOW STA
01/24/25 09:57
Lactated Ringers [Lr] 500 ml IV BOLUS
01/24/25 09:59
Type+Screen Urgent
Complete Blood Count/With Diff Urgent
Comprehensive Metabolic Panel Urgent
Lipase Urgent
PTT Urgent
Prothrombin Time Urgent
01/24/25 Lunch
NPO
Allow oral meds: Yes
Allow clear liquids: 4hrs prior to procedure
Comment: may have unrestricted clear liquid up to 4 hrs prior to scheduled procedure
01/24/25 11:26
Admit/Transfer Patient As Directed
Co-Sign Provider:
Level of Care: Inpatient admission
Assign to:: IMU- Intermediate Care
Physician / Group: Hospital medicine
Diagnosis: Acute upper GI bleed
Reason for Hospitalization: Acute upper GI bleed
Expected length of stay greater than two midnights?: Yes
ELOS- Estimated Length of Stay in days: 3
I certify the patient meets the requirements for IP care: Yes
PRN Pain Medication Management As Directed
May give lesser potent ordered pain med per pt: Yes
preference::
Protocol:: Medication orders for pain may be administered in a
manner that supports deferring to patient preference
when the pt is:
- Requesting an ordered lesser potent pain medication.
Least to most potent pain medications are defined
as: acetaminophen < NSAID < tramadol < opioids
(morphine, oxycodone, hydromorphone).
- Requesting a lesser dose of the same medication IF
ORDERED.
- Requesting a less intrusive route of administration
if both routes are prescribed by the provider (PO <
IV).
01/24/25 11:29
Code Status As Directed
Resuscitation Status: Full Code
Reached after discussion with pt or family/Healthcare POA: Yes
01/24/25 11:56
Fentanyl Citrate/Pf [Sublimaze] 25 mcg IV [id number] PRN
Fentanyl Citrate/Pf [Sublimaze] 25 mcg IV [id number] PRN
Fentanyl Citrate/Pf [Sublimaze] 50 mcg IV PACU-Q5MPRN PRN
Ondansetron Injectable [Zofran] 4 mg IV PACU-ONCEPRN PRN
Prochlorperazine [Compazine] 5 mg IV PACU-ONCEPRN PRN
Notify MD As Directed
Notify physician if: for SDS patients with known or suspected sleep obstructive sleep apnea, monitor in the
PACU.
Notify MD for any apneic/desaturation episodes
O2 Therapy [RESP] Urgent
Titrate/Wean O2 to maintain O2 sat greater than (%): 92
Special Instructions: -Provide supplemental oxygen to achieve O2 sat of 92% or greater.
-After 15 min, may wean O2 and discontinue if patient is able to maintain O2 sat of 92%
or greater during recovery period.
If patient is a discharge home, without oxygen therapy, notify anestheiologist if
unable to maintain O2 SAT of 92% or greater on room air for MD clearance.
01/24/25 12:00
Normosol (Mult Electrolytes) [Normosol-R/Plasmalyte-A] 1,000 ml IV PER PROTOCOL
01/24/25 12:37
0.9% Sodium Chloride 1000 ml [Nss] 1,000 ml IV 50 mls/hr
Acetaminophen [Tylenol] 650 mg PO Q6HPRN PRN mild pain
FOLic ACID [Folvite] 1 mg 0.9% Sodium Chloride 50 ml [Nss] 50 ml IV DAILYPRN
Lorazepam [Ativan] 1 mg PO Q2HPRN PRN
Paroxetine [Paxil] 20 mg PO DAILY
01/24/25 12:37
Case Management Consult Once
Case Management Consult: Other
Comment: Substance abuse counseling
DIETARY IP CONSULT Routine
Reason for Consult: Nutrition support, possible refeeding guidelines
Urinalysis Routine
Urine Drug Abuse Screen Routine
Activity As Directed
Activity Level: As Tolerated
INT (Intravenous Needle Therapy) As Directed
Comment: Place 2 IV catheters of the largest bore possible until stable
Intake/ Output As Directed
Frequency: Per unit guidelines
MSAS SCORE As Directed
MSAS Score 0-4: Repeat MSAS every 2 hours until 0-4 for three consecutive assessments, then every 4 hours x 48
hours.
MSAS Score 5-7: For MILD withdrawl symptoms. Repeat MSAS and RASS every 2 hours
MSAS Score 8-11: For MODERATE withdrawal symptoms. Repeat MSAS and RASS every 1 hour. Consider ICU or IMU
level of care.
MSAS Score > 11: For SEVERE withdrawal symptoms. Repeat MSAS and RASS every 1 hour. Notify provider, consider
ICU level of care.
MSAS Additional Instructions: If no improvement or no decrease in score from severe to moderate within 12
hours, consult psychiatry
MSAS Notify Provider: Notify provider if patient requires more than 10 mg of Lorazepam in eight hour period.
Orthostatic Vital Signs As Directed
Orthostatic VS Frequency: Now
Comment: then every four hours for twenty-four hours
Pneumatic Compression Sleeves As Directed
Type: Knee high
Vital Signs As Directed
Frequency: Per unit guidelines
DX Deep Vein Thrombosis Video Routine
01/24/25 13:18
Alcohol Urgent
Alcohol Urgent
B-Hydroxybutyrate Routine
B-Hydroxybutyrate Urgent
GGTP Urgent
H&H Q8H
Magnesium Urgent
PTT Urgent
Phosphorus Urgent
Prothrombin Time Urgent
01/24/25 14:57
diazePAM [Valium Injection] 5 mg IV Q1HPRN PRN
01/24/25 15:00
CR Chest - 2 Views Routine
Comment:
Reason For Exam: Chronic cough, former smoker
01/24/25 15:02
diazePAM [Valium Injection] 10 mg IV Q1HPRN PRN
01/24/25 16:00
FOLic ACID [Folvite] 1 mg PO DAILY
01/24/25 18:00
Atorvastatin [Lipitor] 10 mg PO QPM
01/24/25 20:00
Thiamine Injection 200 mg IV Q12
01/24/25 20:37
H&H Q8H
01/24/25 22:00
Gabapentin [Neurontin] 300 mg PO HS
01/25/25 06:00
Complete Blood Count/No Diff IN AM
Comprehensive Metabolic Panel IN AM
01/25/25 08:00
Valsartan [Diovan] 160 mg PO DAILY
01/27/25 20:00
Thiamine HCl [Vitamin B1] 100 mg PO BID
Abnormal Lab Results
01/24/25
09:59
RBC 2.69 L 10^6/uL
(4.20-5.40)
Hgb 8.8 L g/dL
(12.0-16.0)
Hct 26.6 L %
(37.0-47.0)
MCH 32.7 H pg
(27.0-31.0)
Abs Immat Gran (auto) 0.1 H 10^3/uL
(0-0.05)
Absolute Neuts (auto) 8.6 H 10^3/uL
(1.4-6.5)
Absolute Lymphs (auto) 0.8 L 10^3/uL
(1.2-3.4)
Absolute Monos (auto) 0.8 H 10^3/uL
(0.1-0.6)
Immature Gran % 0.6 H %
(0-0.5)
Neutrophils % 83.6 H %
(42.2-75.2)
Lymphocytes % 7.6 L %
(20.5-51.1)
APTT 18.9 L Sec
(23.4-35.0)
Sodium 130 L mmol/L
(135-145)
Carbon Dioxide 21 L mmol/L
(22-30)
BUN 45 H mg/dl
(7-17)
Glucose 173 H mg/dl
(70-99)
AST 115 H U/L
(14-36)
ALT 56 H U/L
(0-35)
Crossmatch IS Only See Detail
01/24/25 09:59
01/24/25 09:59
Vital Signs
Initial and Last Documented VS:
Initial Vital Signs
Temp Pulse Resp Pulse Ox
97.7 F 116 18 99
01/24/25 09:30 01/24/25 09:30 01/24/25 09:30 01/24/25 09:30
Last Documented Vital Signs
Temp Pulse Resp BP Pulse Ox
98.7 F 107 12 117/66 99
01/24/25 15:32 01/24/25 15:00 01/24/25 15:00 01/24/25 14:30 01/24/25 15:32
MDM/Problems Addressed
Differential Diagnosis Includes:
Upper GI bleed from gastric ulcer, duodenal ulcer, lower GI bleed from AVM or diverticulosis
MDM/Problems Addressed:
1001: [place] texted GI--rapid reply obtained. GI came rapidly to the emergency room to evaluate the patient. Given patient's tachycardia, pale color and seemingly heavy blood loss a unit of blood was ordered. She did receive 1 unit of blood here
in the emergency room. Though she was tachycardic her blood pressure remained adequate. GI made the decision to take the patient to the endoscopy suite for emergent endoscopy. Patient will be admitted to the hospitalist service. I suggested ICU
level of care.
*Pulse Oximetry
SaO2: 89
Oxygen Mode of Delivery: Room air
Patient hypoxic: no
*EKG
Interpreted by ED Provider?: Yes
Interpretation: abnormal
Heart Rate: 102
Rate: tachycardiac
Rhythm: sinus tachycardia
[place]: normal axis
Interval: normal interval
QRS Pattern: normal QRS
Ischemia: no ischemia
*Traffic Inspector Interpretation
Rate: tachycardiac
Interpretation: abnormal
Heart Rate: 102
Rhythm: sinus tachycardia
*Critical Care Note
Total Time (30-74mins, 75-104mins- exclusive of procedures): 37 min
comment:
Critical care statement: A total of 37 minutes of critical care time was provided for this patient. This includes management of unstable vital signs, evaluation of the patient at bedside, reviewing the patient's pertinent medical records, discussion
with consultants, review of old EKGs and review of pertinent medical records. This time with separate from time utilized to perform the aforementioned documented procedures
ED Attending Note
-
Portions of this chart may have been created with voice recognition software.� Occasional wrong word or��sound alike� substitutions may have occurred due to the inherent limitations of voice recognition software.
Discharge Plan
Departure
Patient Disposition: Admit
Date of Disposition: 01/24/25
Time of Disposition: 10:41
Admit to: ICU
Presentation/result/management discussed w/ accepting MD/DO: Hospitalist
Condition: Serious
Discharge Problem:
Acute upper GI bleeding
Interventions
Interventions:
*Risk Screen - Suicide Last Done: 01/24/25 09:49
*General Assessment Last Done: 01/24/25 09:30
*Neglect/Abuse Screening Last Done: 01/24/25 09:49
*ED- Fall Risk Assessment Last Done: 01/24/25 09:43
*ED COVID-19 Vaccine History Last Done: 01/24/25 09:42
*ED Influenza Vaccine History Last Done: 01/24/25 09:42
*Nursing Disposition Last Done: 01/24/25 11:45
CI-Slmgqc-Sidyhzqgbr Assessment Last Done: 01/24/25 09:48
ED- Cardiac Assessment Last Done: 01/24/25 09:46
ED- Pulmonary Assessment Last Done: 01/24/25 09:47
Discharge Date and Time
Discharge Date/Time: 01/24/25 11:46
[2025-01-24] MEDS: LR 500 IV (10:06)
[2025-01-24 10:10] LABS: Hematocrit 26.6 % (37.0-47.0); Hemoglobin 8.8 g/dL (12.0-16.0); Mean Corp Hgb Conc. 33.1 g/dL (33.0-37.0); Mean Corpuscular Volume 98.9 fL (81.0-99.0); Nucleated Red Blood Cells % 0 %; Platelet Count 376 10^3/uL (130-400); Red Cell Dist. Width 13.9 % (11.5-14.5)
[2025-01-24 10:20] LABS: INR 1.02; PT 13.9 Sec (11.4-14.6)
[2025-01-24 10:31] LABS: ALT (SGPT) 56 U/L (0-35); AST (SGOT) 115 U/L (14-36); Albumin 4.2 g/dl (3.5-5.0); Alkaline Phosphatase 68 U/L (38-126); Blood Urea Nitrogen 45 mg/dl (7-17); Calcium 9.6 mg/dl (8.4-10.2); Carbon Dioxide 21 mmol/L (22-30); Chloride 101 mmol/L (98-107); Estimated Creatinine Clearance 65 ml/min; Glucose 173 mg/dl (70-99); Lipase 292 U/L (23-300); Potassium 4.8 mmol/L (3.5-5.1); Sodium 130 mmol/L (135-145); Total Protein 6.8 g/dl (6.3-8.2); eGFR > 60.00
[2025-01-24 10:36] LABS: APTT 18.9 Sec (23.4-35.0)
--- NOTE | 2025-01-24 10:50 | CON.GI ---
Addendum entered and electronically signed by Vaishali Peoples MD 01/24/25 14:20:
I saw and examined the patient.
The DRILLING FIELD OPERATOR's note was reviewed and I agree with the note.
Comment: This is a 65-year-old female with past medical history as listed below including prior history of upper GI bleed in 01/2024 from duodenal ulcers related to NSAID use who now presents with symptoms of black stool initially followed by maroon
stool yesterday with 2 syncopal episodes at home but only called her boyfriend to bring her in to the ER today morning when she had another episode of maroon stool and also had another syncopal episode at home prior to presenting to the emergency
room and her hemoglobin was noted to be 8.8 with a BUN of 45 and she was tachycardic. She also has a history of alcohol use disorder and drinks vodka at least 2-3 times a week. She was started on blood transfusion in the ER.. She has a history of
reflux and uses Pepcid as needed and has been off the Protonix.
Assessment and plan 1. Upper GI bleed with acute blood loss anemia and had 3 episodes of syncope prior to coming to the ER will schedule her for an emergent endoscopy. she is getting her first unit of blood now continue to monitor hemoglobin, she
has been started on Protonix drip. She was recently treated for bronchitis with a Medrol Dosepak and antibiotics it is possible that she has recurrent ulcers. She says she has not really been using NSAIDs recently but has a prior history of GI
bleed in 2023 from DU secondary to NSAIDs.
2. She also has mildly elevated transaminases most likely related to alcohol use. Continue to trend. Advised alcohol abstinence. Will proceed with further workup if they are increasing or persistently elevated. Hold her statin for now
Original Note:
Consultation
-
Date/Time Consultation Requested: 01/24/25 1006
Date/Time Consultation Performed: 01/24/05 1015
Requesting Provider: Dr. Skinner
Performing Provider: Dr. Peoples/JOSE ALEJANDRO Hong
Reason for Consultation: Acute GI Bleed
Medical History
Chief Complaint / HPI
Chief Complaint: rectal bleeding
History of Present Illness:
65-year-old female past medical history of hypertension, hyperlipidemia, left-sided breast cancer status postmastectomy (2021), GERD, alcohol abuse, previous nonbleeding duodenal ulcers with no stigmata of bleeding, erosive gastropathy GI bleed
01/24/2024 with repeat EGD April 2024 with resolution, upper respiratory symptoms and sinusitis since the end of November recently started on 'amoxicillin' and Medrol Dosepak (currently on day 5 of ) who presents to the emergency room with initially
brown loose stool yesterday a.m. however last evening developed sensation of chills and sweats. She was in her bed around 11 PM felt the urge to have a bowel movement however when she got up to go to the bathroom the next thing she remembered she
was on the floor. She states that she must have passed out, she started crawling to the bathroom but had fecal incontinence that was both melena as red blood. The patient proceeded to have 3 more episodes of red blood per rectum associated with
chest heaviness, shortness of breath and unwell feeling. This morning around to 7 AM she felt the urge to have another bowel movement. Her had to help her out of bed however upon standing she syncopized again. Her ran to get help
called 911. When he came back the patient was awake. She was brought to the emergency room for further evaluation. We are asked to evaluate for acute GI bleeding. The patient denies any fevers, nausea, vomiting, dysphagia or odyno 8.8 with BUN
of 45 and creatinine 0.7. Patient tachycardic at what 19 phasia. No early satiety or unintended weight loss. She did have some mild epigastric tenderness earlier that has since resolved. Her current medications include amoxicillin, Medrol
Dosepak, valsartan, paroxetine, simvastatin, gabapentin and Pepcid AC that she uses once to twice a week. She does drink 1/5 of vodka a week. Her last alcoholic beverage was on Tuesday night. She has not had any further bowel movements or rectal
bleeding since arrival. She is tachycardic 119, without any hypotension (134/82). She was ordered a unit of packed red blood cells by ER given her tachycardia and episodes of syncope. Currently hemoglobin 8.8 with BUN of 45 with creatinine at
0.7. Pantoprazole bolus and drip have been initiated. The patient denies any NSAID use. She denies any family history of gastrointestinal malignancy or IBD. There has been no change in her history since we saw her in April for repeat endoscopy
and colonoscopy. She quit smoking 3 years ago when she was diagnosed with breast cancer.
Past Medical History
Past Medical History: Other (breast cancer, HTN, HLD, anxiety, chronic headaches, GERD, upper GI bleed with duodenal ulcers/erosive gastropathy (01/24/2024) with resolution of duodenal ulcers on repeat EGD 05/25/2024, diverticulosis, history of colon
polyp)
Past Surgical History: Other (Left mastectomy with reconstruction 2021 for breast cancer)
Social History
Tobacco: Former Smoker (Quit 3 years ago)
Alcohol: Chronic Alcoholic (Drinks 1/5 of vodka weekly)
Drug: None
Personal: Partner (Partner of 30 years Pool)
Living: With Family
Employment: Employed
Family History
Family History: Other (No family history of gastrointestinal malignancy or IBD)
Allergies / Home Medications
Allergy/AdvReac Type Severity Reaction Status Date / Time
No Known Allergies Allergy Verified 01/24/24 14:35
�Medication �Instructions �Recorded
gabapentin 300 mg capsule 300 mg PO HS 01/24/24
melatonin 2.5 mg chewable tablet 2.5 mg PO HSPRN PRN sleep 01/24/24
paroxetine HCl 20 mg tablet 20 mg PO DAILY 01/24/24
simvastatin 20 mg tablet 20 mg PO QPM 01/24/24
acetaminophen 325 mg tablet 650 mg PO Q6HPRN PRN mild pain 01/24/25
(Tylenol)
methylprednisolone 4 mg tablets in 0 mg PO PER PKG DIR 01/24/25
a dose pack (Medrol (David))
valsartan 160 mg tablet 160 mg PO DAILY 01/24/25
Review of Systems
-
All other systems: A 12 pt ROS was Negative except as stated above in HPI
Vital Signs
Temp Pulse Resp BP Pulse Ox
97.9 F 103 20 134/82 89
01/24/25 10:15 01/24/25 09:34 01/24/25 10:00 01/24/25 09:34 01/24/25 10:05
Physical Exam
Exam
General: No Apparent Distress
HEENT: Anicteric
Respiratory: Other (Few scattered expiratory wheezes)
Cardiac: Regular Rhythm (Tachy 119)
GI: Soft, Non Tender, Non Distended and Normal Bowel Sounds
Musculoskeletal: No Edema
Skin: Other (Bilateral knee abrasions)
Neuro: AO x 3 (No tremors)
Psych: Calm
Results
WBC 10.3 10^3/uL (4.8-10.8) 01/24/25 09:59
Hgb 8.8 g/dL (12.0-16.0) L 01/24/25 09:59
Hct 26.6 % (37.0-47.0) L 01/24/25 09:59
MCV 98.9 fL (81.0-99.0) 01/24/25 09:59
Plt Count 376 10^3/uL (130-400) 01/24/25 09:59
Absolute Neuts (auto) 8.6 10^3/uL (1.4-6.5) H 01/24/25 09:59
PT 13.9 Sec (11.4-14.6) 01/24/25 09:59
INR 1.02 01/24/25 09:59
APTT 18.9 Sec (23.4-35.0) L 01/24/25 09:59
Sodium 130 mmol/L (135-145) L 01/24/25 09:59
Potassium 4.8 mmol/L (3.5-5.1) 01/24/25 09:59
Chloride 101 mmol/L (98-107) 01/24/25 09:59
Carbon Dioxide 21 mmol/L (22-30) L 01/24/25 09:59
BUN 45 mg/dl (7-17) H 01/24/25 09:59
Creatinine 0.7 mg/dL (0.6-1.0) 01/24/25 09:59
Calcium 9.6 mg/dl (8.4-10.2) 01/24/25 09:59
Total Bilirubin 0.7 mg/dl (0.2-1.3) 01/24/25 09:59
AST 115 U/L (14-36) H 01/24/25 09:59
ALT 56 U/L (0-35) H 01/24/25 09:59
Alkaline Phosphatase 68 U/L (38-126) 01/24/25 09:59
Lipase 292 U/L (23-300) 01/24/25 09:59
Diagnostic Image Results:
None
Prior GI Procedures:
EGD: 05/25/24 (Dr. Peoples) - LA Grade A reflux esophagitis with no bleeding.
Biopsied.
- Non-obstructing Schatzki ring.
- Small hiatal hernia.
- Normal examined duodenum.
EGD: 01/24/25 (Dr. Peoples) - Non-obstructing Schatzki ring.
- Small hiatal hernia.
- Erosive gastropathy with no bleeding and no stigmata
of recent bleeding.
- Erythematous mucosa in the gastric body and antrum.
Biopsied.
- Non-bleeding duodenal ulcers with no stigmata of
bleeding.
- Normal second portion of the duodenum.
Colonoscopy: 05/25/24 (Dr. Peoples) - Diverticulosis in the sigmoid colon, in the
descending colon and in the transverse colon.
- No specimens collected. Repeat 5 years.
Colonoscopy 09/12/2014 (Dr. Keane) - One 7 mm polyp in the sigmoid colon. Resected and
retrieved.
- Diverticulosis in the descending colon, at the splenic
flexure and in the ascending colon.
- The distal rectum and anal verge are normal on
retroflexion view.
Assessment / Plan
-
65-year-old female past medical history of hypertension, hyperlipidemia, left-sided breast cancer status postmastectomy (2021), GERD, alcohol abuse, previous nonbleeding duodenal ulcers with no stigmata of bleeding, erosive gastropathy GI bleed
01/24/2024 with repeat EGD April 2024 with resolution, upper respiratory symptoms and sinusitis since the end of November recently started on 'amoxicillin' and Medrol Dosepak (currently on day 5 of 6) who presents to the emergency room with initially
brown loose stool yesterday a.m. however last evening developed sensation of chills and sweats. Stood up to go to the bathroom, syncopized. Awoke started to have melena followed by episodes of dark red bleeding. Had 3 more episodes throughout the
night. Associated with chest heaviness and shortness of breath. 7 AM this morning partner tried to help her get up to go to the bathroom. Patient syncopized again. At that point 911 was called. No further bleeding since arrival. Hemoglobin 8.8
with BUN 45 with creatinine at 0.7. Patient is tachycardic with normal blood pressure. Does have history of alcohol abuse, last alcoholic beverage Tuesday. Drinks 1/5 of vodka a week. 1 unit of packed red blood cells has been ordered by ER.
Pantoprazole bolus and drip have been initiated. Given current constellation of symptoms, prior history. Discussed with patient and is currently n.p.o. will proceed with upper endoscopy.
Impression:
Acute GI bleed
-> Most likely upper given prior history duodenal ulcer, alcohol abuse, recent prednisone use and elevated BUN with normal creatinine
Syncope
Elevated transaminases AST higher than ALT, possibility just underlying liver disease however component of shock liver
-> Platelets and INR within normal limits
Alcohol abuse, drinks 1/5 of vodka weekly, last drink on Tuesday
Plan:
-Patient already NPO
-Pantoprazole bolus and gtt
-EGD now
-Will hold on Octreotide gtt since able to go straight to EGD
-PRBC ordered by ER
-Recommend ETOH withdrawal protocol
-Trend Hgb
-If EGD negative and if with active bleeding will need CTA Abd/Pelvis, discussed with patient
-Discussed with IM, will be admitting now.
-Will need repeat LFTs in am
-Recommend imaging of liver eventually
-Further recommendations to be forthcoming.
-
-
Thank you for consultation and allowing me to participate in the patient's care. Please call the preschool special education teacher GI physician during the after hours with any questions or concerns.
--- NOTE | 2025-01-24 11:04 | CM ---
Patient seen in ED with boyfriend. Patient states that she lives in a 2 story home with no DME. Patient PCP is Dr. Zhu and she uses the [facility] in [place] for her pharmacy needs. Patient stated that a long time ago she did have a VN but can't
remember which one. Patient plan is for discharge home with no needs. CM will continue to follow for discharge planning needs.
Plan; home with boyfriend vs VN; pending medical treatment plan
--- NOTE | 2025-01-24 11:48 | HPS.HSE ---
Family Physician
-
Family Physician: Josue Zhu DO
Chief Complaint
-
Syncope, diarrhea with black and red stools
History of Present Illness
65-year-old female with PMHx significant for hypertension, hyperlipidemia, peripheral neuropathy, left breast carcinoma in remission, GERD, former smoking and alcoholism presents to the emergency room for evaluation of rectal bleeding. Patient
states that she had a brown loose stool in the a.m. yesterday, [place] stool scale 5, and developed a sensation of chills and sweats into the evening. She was in her bed around 11 PM, and had rectal urgency for a bowel movement and she got up to go
to the bathroom and she found herself on the floor. She does not recall if she passed out but assumes to have passed out she could not feel strength in her legs to stand up and crawl to the bathroom but had an episode of bowel movement before she
mated to the bathroom. She reports dark black stools and also bright red blood per the rectum. She slept through the night and woke up around 6 AM in the morning and had 3 more episodes of red blood per rectum along with loose watery diarrhea.
She had another episode of syncope witnessed by her Pool after these 3 episodes, which lasted for about 5 minutes. She states to be diaphoretic feeling extremely fatigued with chest heaviness and shortness of breath before the syncopal
episode. She did not have any bowel or bladder incontinence during the syncopal episode. She also describes a sensation of following her lower abdomen but denies having any abdominal pain. After the syncopal episode her called EMS and
brought the patient to the ER.
She admits to have a similar episode in the past about 1 year ago. During that admission she had an upper GI endoscopy that showed some evidence for erosive gastritis, grade 1 esophagitis, and duodenal ulcers. H. pylori negative.
She had a repeat upper GI endoscopy in April 2024 that showed nonobstructing Schatzki ring with small hiatal hernia and resolved duodenal ulcer.
She denies having fevers, nausea, emesis, chest pain, orthopnea, PND, bloating, belching, constipation, dysuria. She denies having any sick contacts or any travel outside of [place].
Patient also reports to have chronic cough that started on December 14, brings up mucoid to mucopurulent sputum, no hemoptysis, usually worse in the morning when she wakes up, and denies having associated reflux symptoms. Of note she was diagnosed to
be possible sinusitis, and was given amoxicillin and Medrol Dosepak for about 1 week - 6 days ago, currently patient is on both these medications.
She also admits to have alcohol use, drinks about 4 to 6 hours of vodka every day for 4 to 5 days a week occasionally 3 to 4 days a week. She quit smoking about 3 years ago. Denies any radiation or chemotherapy for breast cancer.
Medical History
Past Medical History
Past Medical History: Reports Other (Hypertension, hyperlipidemia, former smoker, breast carcinoma, alcohol use disorder, former smoker, diverticulosis, GERD, anxiety, chronic headaches, chronic cough.)
Past Surgical History: Reports Other (Left mastectomy with reconstruction)
Social History
Tobacco: Former Smoker (1 pack a day for 40 years, quit in 2021)
Alcohol: Daily (4 to 6 hours vodka for 3-4 times a week)
Drug: None
Personal:
Living: With Family
Employment: Retired
Family History
Family History: Not pertinent
Allergies / Home Medications
Allergies reflects when Allergies were last updated in [facility].
Home Medications with original date entered in [facility]
Allergy/Medication List:
Allergies
Allergy/AdvReac Type Severity Reaction Status Date / Time
No Known Allergies Allergy Verified 01/24/24 14:35
Home Medications
gabapentin 300 mg capsule 300 mg PO HS 01/24/24
melatonin 2.5 mg chewable tablet 2.5 mg PO HSPRN PRN sleep 01/24/24
paroxetine HCl 20 mg tablet 20 mg PO DAILY 01/24/24
simvastatin 20 mg tablet 20 mg PO QPM 01/24/24
acetaminophen 325 mg tablet (Tylenol) 650 mg PO Q6HPRN PRN mild pain 01/24/25
methylprednisolone 4 mg tablets in a dose pack (Medrol (David)) 0 mg PO PER PKG DIR 01/24/25
valsartan 160 mg tablet 160 mg PO DAILY 01/24/25
Review of Systems
-
History Source: Patient
Constitutional: Reports Fatigue, Night Sweats and Chills
EENT: Reports No Symptoms
Respiratory: Reports Cough and Trouble Breathing; Denies Hemoptysis
Cardiac: Reports Other (Chest tightness)
Abdomen/GI: Reports Diarrhea, Bloody Stools and Black Stools
: Reports No Symptoms
Musculoskeletal: Reports No Symptoms
Skin: Reports No Symptoms
Neurological: Reports No Symptoms
Endocrine: Reports No Symptoms
Hematologic/Lymphatic: Reports Bleeding (Per rectum, easy bruising.)
Psych: Reports No Symptoms
Physical Exam
Vital Signs
Vital Signs
Temp Pulse Resp BP Pulse Ox
97.9 F 103 20 134/82 89
01/24/25 10:15 01/24/25 09:34 01/24/25 10:00 01/24/25 09:34 01/24/25 10:05
Physical Exam
General: Other (Mildly anxious, fidgety)
HEENT: Anicteric, Good Dentition and PERRLA; No Moist mucous membranes
Respiratory: Clear (In bilateral upper lobes.), Wheezes (Expiratory wheezes in bilateral lower lobes, left greater than right.) and Decreased Breath Sounds (In the right middle and lower lobes.); No Rales, Rhonchi or Crackles
Cardiac: S1/S2, Regular Rhythm and Tachycardia; No Murmur, Rub or Gallop
GI: Soft, Normal Bowel Sounds, Tender (Epigastric tenderness) and No Hepatosplenomegaly
Musculoskeletal: No Clubbing, No Cyanosis, No Edema and Other (Multiple bruises on bilateral knees, shins.)
Skin: Dry
Neuro: AO x 3 and Nonfocal/grossly intact
Psych: Anxious
Laboratory Results
-
01/24/25:
01/24/25
Laboratory Results
PT 13.9 Sec (11.4-14.6) 01/24/25
INR 1.02 01/24/25
APTT 18.9 Sec (23.4-35.0) L 01/24/25
Total Bilirubin 0.7 mg/dl (0.2-1.3) 01/24/25
AST 115 U/L (14-36) H 01/24/25
ALT 56 U/L (0-35) H 01/24/25
Alkaline Phosphatase 68 U/L (38-126) 01/24/25
Lipase 292 U/L (23-300) 01/24/25
Data Reviewed
-
Diagnostic Radiology: Report Reviewed by me, Discussed with Physician, Discussed with Patient and Discussed with Family
Lab Data: Labs Reviewed by me, Discussed with Physician, Discussed with Patient and Discussed with Family
Old Records: Reviewed
Impression/Plan
-
IMPRESSION: 65-year-old female with PMHx significant for hypertension, hyperlipidemia, alcohol use disorder, former smoker, chronic cough, breast cancer in remission, and prior history of nonbleeding duodenal ulcers that resolved on repeat upper GI
endoscopy presents to the ER for evaluation of syncope, hematochezia and melena. Patient is on steroids for 1 week. Her last alcohol drink consumption was about 2 days ago. Patient is being admitted for evaluation of upper GI bleed.
PLAN:
# Acute upper GI bleed
Patient reports hematochezia and melena with some associated syncope.
Patient is also on steroids, on labs-hemoglobin at 8.8, BUN at 45, serum creatinine at 0.7
Symptoms likely suggestive of upper GI bleed in the light of previous duodenal ulcers and gastropathy.
Most recent alcohol consumption was about 2 days ago.
Likely a confluence of gastropathy from alcohol use and steroid taper.
Admit the patient to IMU, GI consulted, patient started on Protonix drip.
Made n.p.o. for upper GI endoscopy.
Monitor H&H, obtain liver function tests.
# Acute blood loss anemia
Normocytic anemia, likely from GI bleed
History of alcohol use disorder.
S/p crossmatch, pending 1 unit of transfusion.
Transfusion held for upper GI endoscopy.
Supplement thiamine and folate in the light of alcohol use disorder.
Trend H&H, transfuse if Hb drops less than 7.
# Alcohol use disorder-
Last drink-about 2 days ago
Obtain blood alcohol and beta-hydroxybutyrate levels
Mildly acidotic, CO2 at 21.
Obtain urine drug screen
MSAS protocol, supplement thiamine and folate.
check magnesium and phosphorus
# Hyponatremia-
Likely hypovolemic hyponatremia from dehydration
IV NSS maintenance at 60
Trend electrolytes.
# Chronic cough-
Likely from bronchitis
Former smoker, [id number] smoking history
Obtain chest x-ray, obtain PFTs.
Albuterol nebulizations as needed
# Hypertension-
continue home meds with holding parameters
#Hyperlipidemia
continue home meds
#Generalized anxiety
Continue home meds
#DVT prophylaxis-
sequential compression devices
# CODE STATUS-full code.
# Conditions BEEF BREAKER-
Breast cancer in remission
[2025-01-24 13:32] LABS: Hematocrit 26.6 % (37.0-47.0); Hemoglobin 9.5 g/dL (12.0-16.0)
[2025-01-24 13:44] LABS: INR 0.95; PT 13.2 Sec (11.4-14.6)
[2025-01-24 14:01] LABS: APTT 17.5 Sec (23.4-35.0)
[2025-01-24 14:20] LABS: GGTP 257 U/L (12-43); Magnesium 1.9 mg/dl (1.6-2.3)
--- NOTE | 2025-01-24 16:35 | PTCARENOTE ---
Admitted into 4, IMU monitors placed- ST 110 on tele, bp 105/94 RR 16 97% on RAIR. Occasional Harsh NPC - MSAS 4 currently slightly tremulous and HR elevated. PO fluids given, Admission completed bedside.
[2025-01-24] MEDS: NSS 1000 IV (17:26)
[2025-01-24] MEDS: LIPITOR 10 MG PO (17:27)
[2025-01-24] MEDS: FOLVITE 1 MG PO (17:27)
[2025-01-24] MEDS: PAXIL 20 MG PO (17:38)
--- NOTE | 2025-01-24 17:53 | PTCARENOTE ---
CXR completed. IVF/ IV Protonix gtt infusing.
[2025-01-24] MEDS: THIAMINE INJECTION 200 MG IV (19:31)
[2025-01-24 21:17] LABS: Hematocrit 25.1 % (37.0-47.0); Hemoglobin 8.6 g/dL (12.0-16.0)
[2025-01-24] MEDS: NEURONTIN 300 MG PO (21:50)
[2025-01-25] VITALS (23 sets, daily range): BP systolic 90–143; BP diastolic 51–94; PULSE 108–116
--- NOTE | 2025-01-25 01:33 | PTCARENOTE ---
Received pt at change of shift. AAOx3. Pt is visibly tremulous, anxious. Orthostatic vitals obtained; negative. Pt starting to feel more steady on her feet; able to ambulate to the bathroom with stand by assistance. H&H drawn. Hgb decreased to
8.6. Notified ASSISTANT NEWS DIRECTOR. Q6 H&H ordered to monitor hgb closely. VSS at this time. Call jones within reach. Bed alarm active.
[2025-01-25 03:08] LABS: Hematocrit 25.0 % (37.0-47.0); Hemoglobin 8.4 g/dL (12.0-16.0); Mean Corp Hgb Conc. 33.6 g/dL (33.0-37.0); Mean Corpuscular Volume 91.6 fL (81.0-99.0); Nucleated Red Blood Cells % 0 %; Platelet Count 244 10^3/uL (130-400); Red Cell Dist. Width 21.5 % (11.5-14.5)
[2025-01-25 04:33] LABS: ALT (SGPT) 33 U/L (0-35); AST (SGOT) 45 U/L (14-36); Albumin 3.4 g/dl (3.5-5.0); Alkaline Phosphatase 45 U/L (38-126); Blood Urea Nitrogen 22 mg/dl (7-17); Calcium 9.0 mg/dl (8.4-10.2); Carbon Dioxide 25 mmol/L (22-30); Chloride 108 mmol/L (98-107); Estimated Creatinine Clearance 65 ml/min; Glucose 90 mg/dl (70-99); Magnesium 2.1 mg/dl (1.6-2.3); Potassium 4.7 mmol/L (3.5-5.1); Sodium 134 mmol/L (135-145); Total Protein 5.8 g/dl (6.3-8.2); eGFR > 60.00
[2025-01-25 04:36] LABS: Hematocrit 24.3 % (37.0-47.0); Hemoglobin 8.3 g/dL (12.0-16.0); Mean Corp Hgb Conc. 34.2 g/dL (33.0-37.0); Mean Corpuscular Volume 92.7 fL (81.0-99.0); Platelet Count 253 10^3/uL (130-400); Red Cell Dist. Width 21.2 % (11.5-14.5)
[2025-01-25] MEDS: DIOVAN 160 MG PO (07:47)
[2025-01-25] MEDS: PAXIL 20 MG PO (07:47)
[2025-01-25] MEDS: FOLVITE 1 MG PO (07:47)
[2025-01-25] MEDS: NSS 1000 IV (07:47)
[2025-01-25] MEDS: THIAMINE INJECTION 200 MG IV ×2 (08:04→20:06)
[2025-01-25 08:05] LABS: Urine Character Clear (Clear)
[2025-01-25 08:48] LABS: Urine Squamous Cell 16-20 /LPF (Few)
[2025-01-25 08:49] LABS: Urine White Cell >100 /HPF (0-5)
[2025-01-25 08:53] LABS: Urine Red Blood Cell 0-2 /HPF (0-2)
[2025-01-25 09:46] LABS: Hematocrit 25.9 % (37.0-47.0); Hemoglobin 8.7 g/dL (12.0-16.0)
[2025-01-25 11:48] LABS: Iron 82 ug/dl (37-170)
[2025-01-25 11:58] LABS: Total Iron Binding Capacity 283 ug/dl (265-497)
[2025-01-25 12:26] LABS: Ferritin 151.0 ng/ml (11.1-264.0)
--- NOTE | 2025-01-25 12:58 | W.PN.GI.CBS2 ---
Today's Communication / Plan
-
ppi gtt, trend Hb, clear liquid
Assessment / Plan
-
65-year-old female past medical history of hypertension, hyperlipidemia, left-sided breast cancer status postmastectomy (2021), GERD, alcohol abuse, previous nonbleeding duodenal ulcers with no stigmata of bleeding, erosive gastropathy GI bleed
01/24/2024 with repeat EGD April 2024 with resolution, upper respiratory symptoms and sinusitis since the end of November recently started on 'amoxicillin' and Medrol Dosepak (currently on day 5 of 6) who presents to the emergency room with bleeding.
S/p EGD 01/24 Dr. Virgen with blood in UGI with ulcers with VV s/p Epi and bipcap.
Recommendations:
- Clear liquid diet will add Ensure clear
- PPI gtt x72 hours since intervention
- Trend Hb, goal Hb 7
- LFTs trending down continue to monitor
Subjective
Subjective
Date of Service: January 25, 2025
No further bleeding
Objective
Data Reviewed
Laboratory Data:
Laboratory Results
01/25/25 03:52
Laboratory Results
PT 13.2 Sec (11.4-14.6) 01/24/25 13:18
INR 0.95 01/24/25 13:18
APTT 17.5 Sec (23.4-35.0) L 01/24/25 13:18
Phosphorus 3.3 mg/dl (2.5-4.5) 01/24/25 13:18
Magnesium 2.1 mg/dl (1.6-2.3) 01/25/25 03:52
Total Bilirubin 0.7 mg/dl (0.2-1.3) 01/25/25 03:52
AST 45 U/L (14-36) H 01/25/25 03:52
ALT 33 U/L (0-35) 01/25/25 03:52
Alkaline Phosphatase 45 U/L (38-126) 01/25/25 03:52
Lipase 292 U/L (23-300) 01/24/25 09:59
Vital Signs and I&O:
Vital Signs
Temp Pulse Resp BP Pulse Ox
98.3 F 121 30 106/77 96
01/25/25 11:02 01/25/25 10:51 01/25/25 10:51 01/25/25 10:51 01/25/25 08:00
I&O
01/24/25 01/25/25 01/26/25
06:59 06:59 06:59
Intake Total 805 / 805 1140 / 1140
Output Total 250 / 250
Balance 555 / 555 1140 / 1140
Physical Exam
Physical Exam
GI: Non Distended and Non Tender
--- NOTE | 2025-01-25 13:59 | W.PN.UPDATE ---
Update Note
Progress Note Update
I have independently evaluated the patient at the bedside. I reviewed the case with the resident and agree with documentation was otherwise specified.
AFVSS this morning. Hemoglobin up to 8.7 following 1 unit PRBC yesterday. Denies any new bleeding. States she feels better, no lightheadedness or presyncope. Iron studies with mild ALVARADO
AO x 4, NAD. Thin and well-appearing female. Cardiopulmonary and abdomen exam benign. No peritoneal signs. No jaundice or scleral icterus. Skin warm and dry, no edema, palpable pulses. No focal neurologic deficits
#ABLA secondary to UGIB from PUD. S/p 1 unit PRBC. EGD yesterday with duodenal ulcers and stigmata of recent bleed. Currently on IV PPI drip with plans to continue for 72 hours postprocedure at GI recommendation. In the interim we will continue
to trend CBC and provide supportive transfusions if needed. Hemoglobin goal >7 or lack of symptoms. Avoid NSAIDs, anticoagulants, antiplatelet agents. Avoid steroids for now. Start oral iron supplement tomorrow
#Syncope secondary to acute bleeding. Will continue on hall monitor to assess for arrhythmias
#Alcohol use disorder. No signs of withdrawal here on MSAS protocol. Remains on thiamine and folate replacement. Encourage cessation from alcohol as it may have contributed to her ulcers
#Asymptomatic bacteriuria. UA with signs of infection however no symptoms, leukocytosis, fevers. Continue to monitor clinically
#Wheezing, history of tobacco use. Likely COPD. Started bronchodilators as needed. Need to follow-up as OP for PFTs as outpatient.
Diet -- CLD, advance per GIs discretion
Thromboprophylaxis -- SCDs
CODE STATUS -- Full
Disposition -- Expected discharge home >48 hours
--- NOTE | 2025-01-25 14:28 | W.PN.HOSP.TC ---
Today's Communication/Plan
-
-Clear liquid diet will add Ensure clear
- PPI gtt x72 hours since intervention
- Trend Hb, goal Hb 7
- LFTs trending down continue to monitor
- MSAS protocol monitor
Assessment / Plan
Assessment / Plan
Impression:
65-year-old female with PMHx significant for hypertension, hyperlipidemia, alcohol use disorder, former smoker, chronic cough, breast cancer in remission, and prior history of nonbleeding duodenal ulcers that resolved on repeat upper GI endoscopy
presents to the ER for evaluation of syncope, hematochezia and melena. Patient is on steroids for 1 week. Her last alcohol drink consumption was about 2 days ago. Patient is being admitted for evaluation of upper GI bleed.
PLAN:
# Acute upper GI bleed
Patient reports hematochezia and melena with some associated syncope.
Patient is also on steroids, on labs-hemoglobin at 8.8, BUN at 45, serum creatinine at 0.7
Symptoms likely suggestive of upper GI bleed in the light of previous duodenal ulcers and gastropathy.
Most recent alcohol consumption was about 2 days ago.
Likely a confluence of gastropathy from alcohol use and steroid taper.
Admit the patient to IMU, GI consulted, patient started on Protonix drip.
GI endoscopy yesterday with duodenal ulcers and stigmata of recent bleed
Monitor H&H, obtain liver function tests.
#Asymptomatic bacteriuria
UA with signs of infection however no symptoms
leukocytosis, fevers
Continue to monitor clinically
# Acute blood loss anemia
Normocytic anemia, likely from GI bleed
History of alcohol use disorder.
S/p crossmatch, 1 unit of transfusion 01/24/2025
Supplement thiamine and folate in the light of alcohol use disorder.
Trend H&H, transfuse if Hb drops less than 7.
# Alcohol use disorder-
Last drink-about 2 days ago
Obtain blood alcohol and beta-hydroxybutyrate levels
Mildly acidotic, CO2 at 21.
Obtain urine drug screen
MSAS protocol, supplement thiamine and folate.
check magnesium and phosphorus
# Hyponatremia-
Likely hypovolemic hyponatremia from dehydration
IV NSS maintenance at 60
Trend electrolytes.
# Chronic cough-
Likely from bronchitis, or COPD
Former smoker, [id number] smoking history
Obtain chest x-ray negative , obtain PFTs.
Albuterol nebulizations as needed
# Hypertension-
continue home meds with holding parameters
#Hyperlipidemia
continue home meds
#Generalized anxiety
Continue home meds
#DVT prophylaxis-
sequential compression devices
# CODE STATUS-full code.
# Conditions BED BUG EXTERMINATOR-
Breast cancer in remission
Anticipated Discharge: 24 - 48 hours
Subjective/Interval History
-
Date of Service: January 25, 2025
Patient has dry cough, mo dizziness and no hematochezia or melena since the admission.
Objective Data
-
Labs:
Laboratory Results
01/25/25 01/25/25 01/25/25
02:56 02:56 02:56
WBC 7.0
Hgb 8.4 L Cancelled
Hct 25.0 L Cancelled
Plt Count 244 D
Sodium Cancelled
Potassium Cancelled
Chloride Cancelled
Carbon Dioxide Cancelled
BUN Cancelled
Creatinine Cancelled
Glucose Cancelled
Calcium Cancelled
Total Bilirubin Cancelled
AST Cancelled
ALT Cancelled
Alkaline Phosphatase Cancelled
01/25/25 01/25/25 01/25/25
03:52 09:17 20:00
WBC 7.1 Pending
Hgb 8.3 L 8.7 L Pending
Hct 24.3 L 25.9 L Pending
Plt Count 253 Pending
Sodium 134 L
Potassium 4.7
Chloride 108 H
Carbon Dioxide 25
BUN 22 H
Creatinine 0.7
Glucose 90
Calcium 9.0
Total Bilirubin 0.7
AST 45 H
ALT 33
Alkaline Phosphatase 45
Vital Signs:
Vital Signs
Temp Pulse Resp BP Pulse Ox
98.7 F 99 10 99/54 97
01/25/25 13:54 01/25/25 13:00 01/25/25 13:00 01/25/25 13:00 01/25/25 11:00
I&O
01/24/25 01/25/25 01/26/25
06:59 06:59 06:59
Intake Total 805 / 805 1140 / 1140
Output Total 250 / 250
Balance 555 / 555 1140 / 1140
Review of Systems
-
History Source: Patient
Respiratory: Reports Cough
Cardiac: Reports No Symptoms
Genitourinary: Reports No Symptoms
Musculoskeletal: Reports No Symptoms
Physical Exam
-
General: Well Developed, Well Nourished, No Apparent Distress and Comfortable
Respiratory: Clear to Auscultation
Cardiac: Regular Rhythm and S1/S2
GI: Soft, Nontender and Nondistended
Musculoskeletal: No Clubbing, No Cyanosis and No Edema
Neuro: Awake, Alert and Oriented
[2025-01-25 15:31] LABS: Hematocrit 23.8 % (37.0-47.0); Hemoglobin 8.2 g/dL (12.0-16.0)
--- NOTE | 2025-01-25 16:08 | CM ---
Following up on Patient. Case Management was consulted to talk to patient about alcohol abuse resources. Patient is agreeable and BCCR's will visit with the patient shortly to provide information on resources.
PLAN: Home No Needs
--- NOTE | 2025-01-25 16:46 | PTCARENOTE ---
Patient AOx3. MSAS completed per order. On RA with SpO2 greater than 92%. NSR-sinus tach on monitor. BP soft, but MAP >65. Standby assist when OOB. Q6 h&h. Tolerating oral diet. Call jones within reach, bed in lowest position, and bed of wheels
locked.
--- NOTE | 2025-01-25 18:00 | PTCARENOTE ---
Patient notified RN that R arm IV was hurting. IV infiltrated. IV removed and warm compress applied. VAT team notified to come put a new IV in.
[2025-01-25] MEDS: NEURONTIN 300 MG PO (20:05)
[2025-01-25 20:25] LABS: Hematocrit 22.4 % (37.0-47.0); Hemoglobin 7.4 g/dL (12.0-16.0); Mean Corp Hgb Conc. 33.0 g/dL (33.0-37.0); Mean Corpuscular Volume 93.3 fL (81.0-99.0); Nucleated Red Blood Cells % 0 %; Platelet Count 210 10^3/uL (130-400); Red Cell Dist. Width 21.2 % (11.5-14.5)
[2025-01-26] VITALS (16 sets, daily range): BP systolic 90–126; BP diastolic 44–79; PULSE 100–110
[2025-01-26 03:53] LABS: Hematocrit 24.7 % (37.0-47.0); Hemoglobin 8.2 g/dL (12.0-16.0); Mean Corp Hgb Conc. 33.2 g/dL (33.0-37.0); Mean Corpuscular Volume 94.3 fL (81.0-99.0); Nucleated Red Blood Cells % 0 %; Platelet Count 263 10^3/uL (130-400); Red Cell Dist. Width 21.2 % (11.5-14.5)
--- NOTE | 2025-01-26 03:54 | PTCARENOTE ---
Assumed care for patient overnight. Pt AAOx3. MSAS completed per order. Pt on room air, SpO2 96%. NSR on the monitor. BPs soft. Pt ambulating to the bathroom with standby assistance. Pt denies lightheadedness or dizziness. Call jones within reach.
[2025-01-26 04:09] LABS: ALT (SGPT) 25 U/L (0-35); AST (SGOT) 31 U/L (14-36); Albumin 3.6 g/dl (3.5-5.0); Alkaline Phosphatase 52 U/L (38-126); Blood Urea Nitrogen 13 mg/dl (7-17); Calcium 9.3 mg/dl (8.4-10.2); Carbon Dioxide 26 mmol/L (22-30); Chloride 108 mmol/L (98-107); Estimated Creatinine Clearance 65 ml/min; Glucose 97 mg/dl (70-99); Potassium 4.2 mmol/L (3.5-5.1); Sodium 138 mmol/L (135-145); Total Protein 6.1 g/dl (6.3-8.2); eGFR > 60.00
[2025-01-26] MEDS: NSS 1000 IV (06:14)
[2025-01-26] MEDS: DIOVAN 160 MG PO (07:56)
[2025-01-26] MEDS: THIAMINE INJECTION 200 MG IV ×2 (07:56→19:58)
[2025-01-26] MEDS: FEOSOL 325 MG PO (07:56)
[2025-01-26] MEDS: FOLVITE 1 MG PO (07:56)
[2025-01-26] MEDS: PAXIL 20 MG PO (07:56)
[2025-01-26] MEDS: PROTONIX 100 IV ×2 (10:22→19:58)
--- NOTE | 2025-01-26 10:42 | W.PN.UPDATE ---
Update Note
Progress Note Update
I have independently evaluated the patient at the bedside. I reviewed the case with the resident and agree with documentation was otherwise specified.
AFVSS this morning. Hemoglobin up to 8.7-8.3. Denies any new bleeding or other symptoms as of this morning
AO x 4, NAD. Thin and well-appearing female. Cardiopulmonary and abdomen exam benign. No peritoneal signs. No jaundice or scleral icterus. Skin warm and dry, no edema, palpable pulses. No focal neurologic deficits
#ABLA secondary to UGIB from PUD. Symptomatic anemia with syncope. S/p 1 unit PRBC. EGD duodenal ulcers, 1 received APC and 2 nonbleeding. Currently on IV PPI drip with plans to continue for additional 48 hours at GI recommendation. In the
interim we will continue to trend CBC and provide supportive transfusions if needed. Hemoglobin goal >7 or lack of symptoms. Avoid NSAIDs, anticoagulants, antiplatelet agents. Avoid steroids for now. Start oral iron supplement
#Alcohol use disorder. No signs of withdrawal here on MSAS protocol. Remains on thiamine and folate replacement. Encourage cessation from alcohol as it may have contributed to her ulcers
#Asymptomatic bacteriuria. UA with signs of infection however no symptoms, leukocytosis, fevers. Continue to monitor clinically
#Wheezing, history of tobacco use. Likely COPD. Started bronchodilators as needed. Need to follow-up as OP for PFTs as outpatient.
Diet -- LRD
Thromboprophylaxis -- SCDs
CODE STATUS -- Full
Disposition -- Expected discharge home >48 hours
--- NOTE | 2025-01-26 14:44 | W.PN.GI.CBS2 ---
Today's Communication / Plan
-
ppi gtt, adv diet, monitor hb, gi signing off
Assessment / Plan
-
65-year-old female past medical history of hypertension, hyperlipidemia, left-sided breast cancer status postmastectomy (2021), GERD, alcohol abuse, previous nonbleeding duodenal ulcers with no stigmata of bleeding, erosive gastropathy GI bleed
01/24/2024 with repeat EGD April 2024 with resolution, upper respiratory symptoms and sinusitis since the end of November recently started on 'amoxicillin' and Medrol Dosepak (currently on day 5 of 6) who presents to the emergency room with bleeding.
S/p EGD 01/24 Dr. Virgen with blood in UGI with ulcers with VV s/p Epi and bipcap.
Recommendations:
- Low residue diet
- PPI gtt x72 hours since intervention - recommend switching to protonix 40 bid x 8 weeks tomorrow then daily after
- Trend Hb, goal Hb 7 - recommend following up outpatient in 1 week upon discharge
- LFTs now normalized
If Hb stable with no further signs of bleeding ok GI POV for discharge tomorrow after completing 72 hours of PPI gtt
Avoid ALL NSAIDS
I sent office msg to set up follow up appt in 1-[address] Virgen
GI will sign off please call with ?s
Subjective
Subjective
Date of Service: January 26, 2025
no further BM no complaints
Objective
Data Reviewed
Laboratory Data:
Laboratory Results
01/26/25 03:16
01/26/25 03:16
Laboratory Results
PT 13.2 Sec (11.4-14.6) 01/24/25 13:18
INR 0.95 01/24/25 13:18
APTT 17.5 Sec (23.4-35.0) L 01/24/25 13:18
Phosphorus 3.3 mg/dl (2.5-4.5) 01/24/25 13:18
Magnesium 2.1 mg/dl (1.6-2.3) 01/25/25 03:52
Total Bilirubin 0.5 mg/dl (0.2-1.3) 01/26/25 03:16
AST 31 U/L (14-36) 01/26/25 03:16
ALT 25 U/L (0-35) 01/26/25 03:16
Alkaline Phosphatase 52 U/L (38-126) 01/26/25 03:16
Lipase 292 U/L (23-300) 01/24/25 09:59
Vital Signs and I&O:
Vital Signs
Temp Pulse Resp BP Pulse Ox
99 F 101 17 106/44 96
01/26/25 11:24 01/26/25 14:36 01/26/25 10:00 01/26/25 12:00 01/26/25 09:00
I&O
01/25/25 01/26/25 01/27/25
06:59 06:59 06:59
Intake Total 805 / 805 2820 / 2820
Output Total 250 / 250
Balance 555 / 555 2820 / 2820
Physical Exam
Physical Exam
GI: Non Distended and Non Tender
--- NOTE | 2025-01-26 16:40 | W.PN.HOSP.TC ---
Today's Communication/Plan
-
Advanced diet to low residue
check her H and H
Assessment / Plan
Assessment / Plan
Impression:
65-year-old female with PMHx significant for hypertension, hyperlipidemia, alcohol use disorder, former smoker, chronic cough, breast cancer in remission, and prior history of nonbleeding duodenal ulcers that resolved on repeat upper GI endoscopy
presents to the ER for evaluation of syncope, hematochezia and melena. Patient is on steroids for 1 week. Her last alcohol drink consumption was about 2 days ago. Patient is being admitted for evaluation of upper GI bleed.
PLAN:
# Acute upper GI bleed
Patient reports hematochezia and melena with some associated syncope.
Patient is also on steroids, on labs-hemoglobin at 8.8, BUN at 45, serum creatinine at 0.7
Symptoms likely suggestive of upper GI bleed in the light of previous duodenal ulcers and gastropathy.
Most recent alcohol consumption was about 2 days ago.
Likely a confluence of gastropathy from alcohol use and steroid taper.
Admit the patient to IMU, GI consulted, patient started on Protonix drip.
GI endoscopy yesterday with duodenal ulcers and stigmata of recent bleed
Monitor H&H, obtain liver function tests.
#Asymptomatic bacteriuria
UA with signs of infection however no symptoms
leukocytosis, fevers
Continue to monitor clinically
# Acute blood loss anemia
Normocytic anemia, likely from GI bleed
History of alcohol use disorder.
S/p crossmatch, 1 unit of transfusion 01/24/2025
Hb 7.4--8.2
Supplement thiamine and folate in the light of alcohol use disorder.
Trend H&H, transfuse if Hb drops less than 7.
# Alcohol use disorder-
Last drink-about 2 days ago
Obtain blood alcohol and beta-hydroxybutyrate levels
Mildly acidotic, CO2 at 21.
Obtain urine drug screen
MSAS protocol, supplement thiamine and folate.
check magnesium and phosphorus
# Hyponatremia-
Likely hypovolemic hyponatremia from dehydration
IV NSS maintenance at 60
Trend electrolytes.
# Chronic cough-
Likely from bronchitis, or COPD
Former smoker, [id number] smoking history
Obtain chest x-ray negative , obtain PFTs.
Albuterol nebulizations as needed
# Hypertension-
continue home meds with holding parameters
#Hyperlipidemia
continue home meds
#Generalized anxiety
Continue home meds
#DVT prophylaxis-
sequential compression devices
# CODE STATUS-full code.
# Conditions GOLF CART ATTENDANT-
Breast cancer in remission
Anticipated Discharge: 24 - 48 hours
Subjective/Interval History
-
Date of Service: January 26, 2025
Patient looks good today, No GI bleeding since the admission. no abd pain , no dizziness. Mild cough but improved since the admission.
Objective Data
-
Vital Signs:
Vital Signs
Temp Pulse Resp BP Pulse Ox
98.6 F 110 17 126/58 96
01/26/25 15:47 01/26/25 16:07 01/26/25 10:00 01/26/25 16:07 01/26/25 09:00
I&O
01/25/25 01/26/25 01/27/25
06:59 06:59 06:59
Intake Total 805 / 805 2820 / 2820
Output Total 250 / 250
Balance 555 / 555 2820 / 2820
Review of Systems
-
History Source: Patient
Respiratory: Reports Cough
Cardiac: Reports No Symptoms
Abdomen/GI: Reports Abdominal Pain (mild lower abd pain)
Genitourinary: Reports No Symptoms
Musculoskeletal: Reports No Symptoms
Neuro: Reports No Symptoms
Physical Exam
-
General: Well Developed, Well Nourished, No Apparent Distress and Comfortable
Respiratory: Clear to Auscultation
Cardiac: Regular Rhythm and S1/S2
GI: Soft, Nontender and Nondistended
Musculoskeletal: No Clubbing, No Cyanosis and No Edema
Neuro: Awake, Alert, Oriented and Nonfocal/Grossly Intact
--- NOTE | 2025-01-26 18:18 | PTCARENOTE ---
Pt tolerated walking the halls today w/ standby assist, denies any dizziness. VSS. Offered no complaints.
[2025-01-26] MEDS: NEURONTIN 300 MG PO (19:58)
[2025-01-27] VITALS (17 sets, daily range): BP systolic 97–150; BP diastolic 61–96
--- NOTE | 2025-01-27 02:02 | PTCARENOTE ---
Patient AAOx3. Pt ambulating with standby assistance to the bathroom. Pt denies any dizziness or lightheadedness. IV Protonix cont. VSS. NSR to ST on the monitor. Pt able to make needs known, call jones within reach.
[2025-01-27 05:27] LABS: Hematocrit 20.4 % (37.0-47.0); Hemoglobin 6.7 g/dL (12.0-16.0); Mean Corp Hgb Conc. 32.8 g/dL (33.0-37.0); Mean Corpuscular Volume 94.4 fL (81.0-99.0); Nucleated Red Blood Cells % 0 %; Platelet Count 227 10^3/uL (130-400); Red Cell Dist. Width 20.2 % (11.5-14.5)
[2025-01-27 05:28] LABS: ALT (SGPT) 19 U/L (0-35); AST (SGOT) 25 U/L (14-36); Albumin 3.2 g/dl (3.5-5.0); Alkaline Phosphatase 46 U/L (38-126); Blood Urea Nitrogen 13 mg/dl (7-17); Calcium 8.9 mg/dl (8.4-10.2); Carbon Dioxide 26 mmol/L (22-30); Chloride 110 mmol/L (98-107); Estimated Creatinine Clearance 56 ml/min; Glucose 101 mg/dl (70-99); Potassium 4.2 mmol/L (3.5-5.1); Sodium 136 mmol/L (135-145); Total Protein 5.4 g/dl (6.3-8.2); eGFR > 60.00
--- NOTE | 2025-01-27 05:32 | W.PN.UPDATE ---
Update Note
Progress Note Update
AM labs: Hgb 6.7/Hct 20.4. Ordered 1 unit PRBC's to transfuse today.
--- NOTE | 2025-01-27 06:19 | PTCARENOTE ---
Hgb 6.7. JOSE ALEJANDRO Arango made aware, 1 unit PRBCs ordered. R wrist IV site leaking. New R brachial site placed.
--- NOTE | 2025-01-27 07:51 | W.PN.UPDATE ---
Update Note
Progress Note Update
I have independently evaluated the patient at the bedside. I reviewed the case with the resident and agree with documentation was otherwise specified.
AFVSS this morning. Hemoglobin up to 8.7-8.3-6.7. Denies any new bleeding or other symptoms as of this morning
AO x 4, NAD. Thin and well-appearing female. Cardiopulmonary and abdomen exam benign though hyperactive bowel sounds present today. No peritoneal signs. No jaundice or scleral icterus. Skin warm and dry, no edema, palpable pulses. No focal
neurologic deficits
#ABLA secondary to UGIB from PUD. Symptomatic anemia with syncope. S/p 1 unit PRBC. EGD duodenal ulcers, 1 received APC and 2 nonbleeding. Currently on IV PPI drip. Was ordered an additional 1 unit PRBC this morning for hemoglobin 6.7.
Continue to trend CBC. Hemoglobin goal >7 or lack of symptoms. Avoid NSAIDs, anticoagulants, antiplatelet agents. Avoid steroids for now. Continue with oral iron. Discussed with GI who will reevaluate today
#Alcohol use disorder. No signs of withdrawal here on MSAS protocol. Remains on thiamine and folate replacement. Encourage cessation
#Asymptomatic bacteriuria. UA with signs of infection however no symptoms, leukocytosis, fevers. Continue to monitor clinically
#Wheezing, history of tobacco use. Likely COPD. Started bronchodilators as needed. Need to follow-up as OP for PFTs as outpatient.
Diet -- Transition back to CLD pending GI assessment
Thromboprophylaxis -- SCDs
CODE STATUS -- Full
Disposition -- Expected discharge home >48 hours
[2025-01-27] MEDS: DIOVAN 160 MG PO (08:57)
[2025-01-27] MEDS: FOLVITE 1 MG PO (08:57)
[2025-01-27] MEDS: FEOSOL 325 MG PO (08:57)
[2025-01-27] MEDS: PAXIL 20 MG PO (08:57)
[2025-01-27] MEDS: THIAMINE INJECTION 200 MG IV (10:08)
[2025-01-27] MEDS: PROTONIX 100 IV ×2 (10:40→20:32)
--- NOTE | 2025-01-27 10:45 | W.PN.GI.CBS2 ---
Today's Communication / Plan
-
egd tomorrow
Assessment / Plan
-
65-year-old female past medical history of hypertension, hyperlipidemia, left-sided breast cancer status postmastectomy (2021), GERD, alcohol abuse, previous nonbleeding duodenal ulcers with no stigmata of bleeding, erosive gastropathy GI bleed
01/24/2024 with repeat EGD April 2024 with resolution, upper respiratory symptoms and sinusitis since the end of November recently started on 'amoxicillin' and Medrol Dosepak (currently on day 5 of 6) who presents to the emergency room with bleeding.
S/p EGD 01/24 Dr. Virgen with blood in UGI with ulcers with VV s/p Epi and bipcap.
Had Hb 6.7 - d/w nurse not dilutional getting another unit of blood today.
Recommendations:
- Clear liquid diet
- Continue PPI gtt
- Repeat EGD tomorrow given drop in Hb
- Trend Hb, goal Hb 7
- LFTs now normalized
Avoid ALL NSAIDS/EtOH
I sent office msg to set up follow up appt in 1-[address] Virgen
Subjective
Subjective
Date of Service: January 27, 2025
drop in hb
no bm
some abd discomfort after walking
Objective
Data Reviewed
Laboratory Data:
Laboratory Results
01/27/25 04:09
Laboratory Results
PT 13.2 Sec (11.4-14.6) 01/24/25 13:18
INR 0.95 01/24/25 13:18
APTT 17.5 Sec (23.4-35.0) L 01/24/25 13:18
Phosphorus 3.3 mg/dl (2.5-4.5) 01/24/25 13:18
Magnesium 2.1 mg/dl (1.6-2.3) 01/25/25 03:52
Total Bilirubin 0.1 mg/dl (0.2-1.3) L 01/27/25 04:09
AST 25 U/L (14-36) 01/27/25 04:09
ALT 19 U/L (0-35) 01/27/25 04:09
Alkaline Phosphatase 46 U/L (38-126) 01/27/25 04:09
Lipase 292 U/L (23-300) 01/24/25 09:59
Vital Signs and I&O:
Vital Signs
Temp Pulse Resp BP Pulse Ox
98.0 F 97 20 146/76 98
01/27/25 09:53 01/27/25 09:53 01/27/25 09:53 01/27/25 09:53 01/27/25 09:53
I&O
01/26/25 01/27/25 01/28/25
06:59 06:59 06:59
Intake Total 2820 / 2820 480 / 480 770 / 770
Balance 2820 / 2820 480 / 480 770 / 770
Physical Exam
Physical Exam
GI: Non Distended and Non Tender
--- NOTE | 2025-01-27 14:30 | W.PN.HOSP.TC ---
Today's Communication/Plan
-
Hb today 6.7 and received one unit PRBC
Repeat Hb at 6 pm today
change diet from low residue to clear liquid
Continue PPI gtt
Repeat EGD tomorrow given drop in Hb
GI following
Assessment / Plan
Assessment / Plan
Impression:
65-year-old female with PMHx significant for hypertension, hyperlipidemia, alcohol use disorder, former smoker, chronic cough, breast cancer in remission, and prior history of nonbleeding duodenal ulcers that resolved on repeat upper GI endoscopy
presents to the ER for evaluation of syncope, hematochezia and melena. Patient is on steroids for 1 week. Her last alcohol drink consumption was about 2 days ago. Patient is being admitted for evaluation of upper GI bleed.
PLAN:
# Acute upper GI bleed
Patient reports hematochezia and melena with some associated syncope.
Likely a confluence of gastropathy from alcohol use and steroid taper.
HB 8.7--8.2--7.4--8.2--6.7
Admit the patient to IMU,
Continue Protonix drip
GI endoscopy on 01/24/2025 with duodenal ulcers and stigmata of recent bleed
Monitor H&H, liver function tests wnl
Blood transfusion 01/27/2025 for Hb 6.7
Endoscopy tomorrow 01/28/2025
GI following
#Asymptomatic bacteriuria
UA with signs of infection however no symptoms
leukocytosis, fevers
Continue to monitor clinically
# Acute blood loss anemia
Normocytic anemia, likely from GI bleed
History of alcohol use disorder.
S/p crossmatch, 1 unit of transfusion 01/24/2025
Hb 7.4--8.2--6.7
Supplement thiamine and folate in the light of alcohol use disorder.
Trend H&H, transfuse if Hb drops less than 7.
# Alcohol use disorder-
Last drink-about 2 days ago
Obtain blood alcohol and beta-hydroxybutyrate levels
Mildly acidotic, CO2 at 21.
Obtain urine drug screen
MSAS protocol, supplement thiamine and folate.
check magnesium and phosphorus
# Hyponatremia-
Likely hypovolemic hyponatremia from dehydration, improved
Trend electrolytes.
# Chronic cough-
Likely from bronchitis, or COPD
Former smoker, [id number] smoking history
Obtain chest x-ray negative , obtain PFTs as an out patient
Albuterol nebulizations as needed
# Hypertension-
continue home meds with holding parameters
#Hyperlipidemia
continue home meds
#Generalized anxiety
Continue home meds
#Breast cancer in remission
#DVT prophylaxis-
sequential compression devices
# CODE STATUS-full code.
Anticipated Discharge: 24 - 48 hours
Subjective/Interval History
-
Date of Service: January 27, 2025
Patient still has the chronic cough since 11/2024. Denies chest pain, SOB, nausea, vomiting, fever, chills. Her Hb doubler operator 6.7 and received one unit of PRBC today.
Objective Data
-
Labs:
Laboratory Results
01/27/25 01/27/25
04:09 18:23
WBC 5.7 Pending
Hgb 6.7 L* Pending
Hct 20.4 L* Pending
Plt Count 227 Pending
Sodium 136
Potassium 4.2
Chloride 110 H
Carbon Dioxide 26
BUN 13
Creatinine 0.8
Glucose 101 H
Calcium 8.9
Total Bilirubin 0.1 L
AST 25
ALT 19
Alkaline Phosphatase 46
Vital Signs:
Vital Signs
Temp Pulse Resp BP Pulse Ox
99.2 F 97 20 146/76 98
01/27/25 11:59 01/27/25 09:53 01/27/25 09:53 01/27/25 09:53 01/27/25 09:53
I&O
01/26/25 01/27/25 01/28/25
06:59 06:59 06:59
Intake Total 2820 / 2820 480 / 480 770 / 770
Balance 2820 / 2820 480 / 480 770 / 770
Review of Systems
-
History Source: Patient
Respiratory: Reports Cough
Cardiac: Reports No Symptoms
Abdomen/GI: Reports Abdominal Pain (mild lower abd pain)
Genitourinary: Reports No Symptoms
Musculoskeletal: Reports No Symptoms
Neuro: Reports No Symptoms
Physical Exam
-
General: Well Developed, Well Nourished, No Apparent Distress and Comfortable
Respiratory: Clear to Auscultation
Cardiac: Regular Rhythm and S1/S2
GI: Soft, Nontender and Nondistended
Musculoskeletal: No Clubbing, No Cyanosis and No Edema
Skin: Warm and Dry
Neuro: Awake, Alert, Oriented and Nonfocal/Grossly Intact
--- NOTE | 2025-01-27 16:16 | CM ---
Following up on Patient. Patient stated BCCR's did come to visit and provided her information. PLAN: Home No Needs
--- NOTE | 2025-01-27 16:36 | PTCARENOTE ---
Received pt with 1 unit PRBCs infusing and monitored until completion. Pt tolerated without event. Pt alert and oriented NSR-ST on monitor, no signs of alcohol withdrawal. Pt diet changed to clear liqs due to drop in HGB and unknown cause. Pt
cooperative with diet change but does complain of feeling hungry. She admits to mild tenderness in left lower quadrant today. No bowel movements yet. Pt up ambulating yeung with BF numerous times throughout the day. NSR-ST on monitor. Room air, clear
lungs and no SOB or dyspnea noted. Patient aware plan of care is repeat GI scope tomorrow.
[2025-01-27 18:49] LABS: Hematocrit 27.8 % (37.0-47.0); Hemoglobin 9.5 g/dL (12.0-16.0); Mean Corp Hgb Conc. 34.2 g/dL (33.0-37.0); Mean Corpuscular Volume 91.7 fL (81.0-99.0); Platelet Count 231 10^3/uL (130-400); Red Cell Dist. Width 18.7 % (11.5-14.5)
--- NOTE | 2025-01-27 20:20 | PTCARENOTE ---
Assumed care, patient received sitting up in bed, awake, alert and oriented, watching TV. See imcu specialist charted on worklist flowsheet. She currently denies pain, no abdominal pain, No N/V. Takes oral liquids well. On Protonix gtt per order. BBS
clear. S1S2 regular, SR on CM. Positive pulses, no edema. BRP with SBA, gait steady, tolerates well. No dizziness. Voids without difficulty. Bed in low and locked position, call jones within reach. Patient calls for assistance prior to getting OOB.
[2025-01-27] MEDS: PROTONIX IV (20:32)
[2025-01-27] MEDS: VITAMIN B1 100 MG PO (20:32)
[2025-01-27] MEDS: NEURONTIN 300 MG PO (20:34)
--- NOTE | 2025-01-27 21:54 | PTCARENOTE ---
Vital signs pulled from 0648am until 2154pm. Unable to verify vital signs from [id number].
[2025-01-28] VITALS (11 sets, daily range): BP systolic 94–163; BP diastolic 60–150
[2025-01-28] MEDS: PROTONIX 100 IV (06:17)
[2025-01-28 06:32] LABS: Hematocrit 29.1 % (37.0-47.0); Hemoglobin 9.8 g/dL (12.0-16.0); Mean Corp Hgb Conc. 33.7 g/dL (33.0-37.0); Mean Corpuscular Volume 93.3 fL (81.0-99.0); Nucleated Red Blood Cells % 0 %; Platelet Count 246 10^3/uL (130-400); Red Cell Dist. Width 19.2 % (11.5-14.5)
[2025-01-28 07:03] LABS: ALT (SGPT) 21 U/L (0-35); AST (SGOT) 33 U/L (14-36); Albumin 3.8 g/dl (3.5-5.0); Alkaline Phosphatase 59 U/L (38-126); Blood Urea Nitrogen 8 mg/dl (7-17); Calcium 9.5 mg/dl (8.4-10.2); Carbon Dioxide 27 mmol/L (22-30); Chloride 109 mmol/L (98-107); Estimated Creatinine Clearance 56 ml/min; Glucose 93 mg/dl (70-99); Potassium 4.3 mmol/L (3.5-5.1); Sodium 139 mmol/L (135-145); Total Protein 6.4 g/dl (6.3-8.2); eGFR > 60.00
--- NOTE | 2025-01-28 07:18 | PTCARENOTE ---
Report given verbally to oncoming francis, Yamini OCONNOR. Questions answered.
[2025-01-28] MEDS: PAXIL PO (09:20)
[2025-01-28] MEDS: FOLVITE PO (09:20)
[2025-01-28] MEDS: VITAMIN B1 PO (09:20)
[2025-01-28] MEDS: FEOSOL PO (09:20)
[2025-01-28] MEDS: DIOVAN PO (09:20)
--- NOTE | 2025-01-28 14:54 | W.PN.UPDATE ---
Update Note
Progress Note Update
Acute on chronic blood loss anemia secondary to upper GI bleed with bleeding duodenal ulcer
S/p EGD duodenal ulcer noted along with 2 nonbleeding duodenal ulcers. The bleeding duodenal ulcer was/s/p epinephrine for hemostasis coagulation for hemostasis using bipolar probe was successful
S/p 2 PRBC
Hemoglobin now stable
Hemodynamic stable
Tolerating diet well
Noted decrease in hemoglobin again over the weekend therefore GI yesterday recommended repeat upper endoscopy
This was completed today
Without evidence of bleeding
On twice daily IV PPI was transition from PPI drip by GI
Discharge date dependent on when cleared by GI
Hypertension
Continue antihypertensives
Alcohol use
Continue thiamine folate
Downgrade to GMF
Read, reviewed, and agree. See same day progress note for additional details. Time spent reviewing records in EMR, med rec, consults, notes, d/w consultants, nursing, family, and CM
--- NOTE | 2025-01-28 16:39 | W.PN.HOSP.TC ---
Today's Communication/Plan
-
EGD today . no bleeding ulcer
monitor CBC if table she will be discharged tomorrow.
Continue PPI drip
planned to discharge her on PPI oral for 8 weeks BID and then daily
Assessment / Plan
Assessment / Plan
Impression:
65-year-old female with PMHx significant for hypertension, hyperlipidemia, alcohol use disorder, former smoker, chronic cough, breast cancer in remission, and prior history of nonbleeding duodenal ulcers that resolved on repeat upper GI endoscopy
presents to the ER for evaluation of syncope, hematochezia and melena. Patient is on steroids for 1 week. Her last alcohol drink consumption was about 2 days ago. Patient is being admitted for evaluation of upper GI bleed.
PLAN:
# Acute upper GI bleed
Patient reports hematochezia and melena with some associated syncope.
Likely a confluence of gastropathy from alcohol use and steroid taper.
HB 8.7--8.2--7.4--8.2--6.7--9.5--9.8
Admit the patient to IMU,
Continue Protonix drip
GI endoscopy on 01/24/2025 with duodenal ulcers and stigmata of recent bleed
Monitor H&H, liver function tests wnl
Blood transfusion 01/27/2025 for Hb 6.7
Endoscopy 01/28/2025 , no bleeding ulcer
planned for discharge tomorrow on PPI oral for 8 weeks
GI following
#Asymptomatic bacteriuria
UA with signs of infection however no symptoms
leukocytosis, fevers
Continue to monitor clinically
# Acute blood loss anemia
Normocytic anemia, likely from GI bleed
History of alcohol use disorder.
S/p crossmatch, 1 unit of transfusion 01/24/2025
Hb 8.7--8.2--7.4--8.2--6.7--9.5--9.8
Supplement thiamine and folate in the light of alcohol use disorder.
Trend H&H, transfuse if Hb drops less than 7.
# Alcohol use disorder-
Last drink-about 2 days ago
Obtain blood alcohol and beta-hydroxybutyrate levels
Mildly acidotic, CO2 at 21.
Obtain urine drug screen
MSAS protocol, supplement thiamine and folate.
check magnesium and phosphorus
# Hyponatremia-
Likely hypovolemic hyponatremia from dehydration, improved
Trend electrolytes.
# Chronic cough-
Likely from bronchitis, or COPD
Former smoker, [id number] smoking history
Obtain chest x-ray negative , obtain PFTs as an out patient
Albuterol nebulizations as needed
# Hypertension-
continue home meds with holding parameters
#Hyperlipidemia
continue home meds
#Generalized anxiety
Continue home meds
#Breast cancer in remission
#DVT prophylaxis-
sequential compression devices
# CODE STATUS-full code.
Anticipated Discharge: Within 24 hours
Subjective/Interval History
-
Date of Service: January 28, 2025
Patient has abd pain with cough. denied nausea, vomiting , bleeding per rectum.
Objective Data
-
Labs:
Laboratory Results
01/28/25 01/28/25 01/28/25
06:12 14:43 18:00
WBC 6.7 Pending
Hgb 9.8 L Pending Pending
Hct 29.1 L Pending
Plt Count 246 Pending
Sodium 139
Potassium 4.3
Chloride 109 H
Carbon Dioxide 27
BUN 8
Creatinine 0.8
Glucose 93
Calcium 9.5
Total Bilirubin 0.3
AST 33
ALT 21
Alkaline Phosphatase 59
Vital Signs:
Vital Signs
Temp Pulse Resp BP Pulse Ox
98.2 F 81 9 121/79 98
01/28/25 15:20 01/28/25 14:00 01/28/25 14:00 01/28/25 14:00 01/28/25 14:00
I&O
01/27/25 01/28/25 01/29/25
06:59 06:59 06:59
Intake Total 480 / 480 1130 / 1130
Balance 480 / 480 1130 / 1130
Review of Systems
-
History Source: Patient
Respiratory: Reports Cough
Cardiac: Reports No Symptoms
Abdomen/GI: Reports Abdominal Pain (mild lower abd pain)
Genitourinary: Reports No Symptoms
Musculoskeletal: Reports No Symptoms
Neuro: Reports No Symptoms
Physical Exam
-
General: Well Developed, Well Nourished, No Apparent Distress and Comfortable
Respiratory: Clear to Auscultation
Cardiac: Regular Rhythm and S1/S2
GI: Soft, Nontender and Nondistended
Musculoskeletal: No Clubbing, No Cyanosis and No Edema
Skin: Warm and Dry
Neuro: Awake, Alert, Oriented and Nonfocal/Grossly Intact
[2025-01-28] MEDS: NSS (PRESERVATIVE FREE) 10 ML IV (19:51)
[2025-01-28] MEDS: PROTONIX IV 40 MG IV (19:51)
[2025-01-28] MEDS: VITAMIN B1 100 MG PO (19:52)
[2025-01-28 19:56] LABS: Hemoglobin 9.1 g/dL (12.0-16.0)
[2025-01-28] MEDS: NEURONTIN 300 MG PO (21:45)
--- NOTE | 2025-01-28 23:40 | PTCARENOTE ---
Report called verbally to ELVIN Ahn on 4W. Questions answered.
--- NOTE | 2025-01-29 00:02 | PTCARENOTE ---
Pt transferred to 4W. Pt able to walk from WC to bed w/o assistive devices. Pt AAOx3, belongings in room, oriented to room. No c/o pain. Safety measures in place, call jones within reach.
[2025-01-29 00:05] VITALS: BP 141/64
--- NOTE | 2025-01-29 01:12 | PTCARENOTE ---
Assumed care. Patient received awake, alert and oriented watching TV. Denies pain. See speech professor on worklist flowsheet. BBS clear. Not on CM. No edema. Ambulates to bathroom without difficulty, gait steady. Denies dizziness. Bed in low and
locked position, call jones within reach.
[2025-01-29 07:00] VITALS: BP 102/72
[2025-01-29 07:06] LABS: Hematocrit 33.2 % (37.0-47.0); Hemoglobin 11.0 g/dL (12.0-16.0); Mean Corp Hgb Conc. 33.1 g/dL (33.0-37.0); Mean Corpuscular Volume 93.5 fL (81.0-99.0); Nucleated Red Blood Cells % 0 %; Platelet Count 298 10^3/uL (130-400); Red Cell Dist. Width 18.2 % (11.5-14.5)
[2025-01-29 07:17] LABS: ALT (SGPT) 20 U/L (0-35); AST (SGOT) 29 U/L (14-36); Albumin 3.9 g/dl (3.5-5.0); Alkaline Phosphatase 68 U/L (38-126); Blood Urea Nitrogen 11 mg/dl (7-17); Calcium 9.6 mg/dl (8.4-10.2); Carbon Dioxide 30 mmol/L (22-30); Chloride 105 mmol/L (98-107); Estimated Creatinine Clearance 56 ml/min; Glucose 94 mg/dl (70-99); Potassium 4.2 mmol/L (3.5-5.1); Sodium 139 mmol/L (135-145); Total Protein 6.6 g/dl (6.3-8.2); eGFR > 60.00
[2025-01-29] MEDS: FEOSOL 325 MG PO (08:01)
[2025-01-29] MEDS: FOLVITE 1 MG PO (08:01)
[2025-01-29] MEDS: DIOVAN PO (08:01)
[2025-01-29] MEDS: PROTONIX IV 40 MG IV (08:01)
[2025-01-29] MEDS: PAXIL 20 MG PO (08:02)
[2025-01-29] MEDS: NSS (PRESERVATIVE FREE) 10 ML IV (08:02)
[2025-01-29] MEDS: VITAMIN B1 100 MG PO (08:02)
--- NOTE | 2025-01-29 10:47 | CM ---
CM reviewed chart and bedside meeting with pt
She noted plan for dc today
No dc needs noted- her SO will transport home
IMM verbally reviewed- copy provided
Discharge Disposition- home, no needs- family transport
[2025-01-29 12:41] VITALS: BP 120/61
[2025-01-29] MEDS: PREVNAR 20 0.5 ML IM (12:48)
--- NOTE | 2025-01-29 14:22 | W.PN.UPDATE ---
Update Note
Progress Note Update
Acute on chronic blood loss anemia secondary to upper GI bleed with bleeding duodenal ulcer
S/p EGD duodenal ulcer noted along with 2 nonbleeding duodenal ulcers. The bleeding duodenal ulcer was/s/p epinephrine for hemostasis coagulation for hemostasis using bipolar probe was successful
S/p 2 PRBC
Hemoglobin now stable
Hemodynamic stable
Tolerating diet well
Noted decrease in hemoglobin again over the weekend therefore GI yesterday recommended repeat upper endoscopy
This was completed today
Without evidence of bleeding
On twice daily IV PPI was transition from PPI drip by GI
Discharge date dependent on when cleared by GI
Hypertension
Continue antihypertensives
Alcohol use
Continue thiamine folate
Discharge home. Hemoglobin stable. No abdominal pain. No bleeding noted. Hemodynamic stable. Cleared by GI for home.
Read, reviewed, and agree. See same day progress note for additional details. Time spent reviewing records in EMR, med rec, consults, notes, d/w consultants, nursing, family, and CM
--- NOTE | 2025-01-29 15:26 | W.PN.HOSP.TC ---
Addendum entered and electronically signed by Yovany Haskins MD 01/30/25 17:12:
See update note
Read, reviewed, and agree. See same day progress note for additional details. Time spent reviewing records in EMR, med rec, consults, notes, d/w consultants, nursing, family, and CM
Original Note:
Today's Communication/Plan
-
Cleared by GI for home today
Tolerating regular diet
Patient discharged today in stable condition
Discharged on PPI Po BID for 8 weeks and then daily
advised to follow up with her gastroentrologist and PCP as an outpatient
Assessment / Plan
Assessment / Plan
Impression:
65-year-old female with PMHx significant for hypertension, hyperlipidemia, alcohol use disorder, former smoker, chronic cough, breast cancer in remission, and prior history of nonbleeding duodenal ulcers that resolved on repeat upper GI endoscopy
presents to the ER for evaluation of syncope, hematochezia and melena. Patient is on steroids for 1 week. Her last alcohol drink consumption was about 2 days ago. Patient is being admitted for evaluation of upper GI bleed.
PLAN:
# Acute upper GI bleed
Patient reports hematochezia and melena with some associated syncope.
Likely a confluence of gastropathy from alcohol use and steroid taper.
HB 8.7--8.2--7.4--8.2--6.7--9.5--9.8--11
Admit the patient to IMU,
Continue Protonix drip
GI endoscopy on 01/24/2025 with duodenal ulcers and stigmata of recent bleed
Monitor H&H, liver function tests wnl
Blood transfusion 01/27/2025 for Hb 6.7
Endoscopy 01/28/2025 , no bleeding ulcer
planned for discharge tomorrow on PPI oral for 8 weeks
GI following
#Asymptomatic bacteriuria
UA with signs of infection however no symptoms
leukocytosis, fevers
Continue to monitor clinically
# Acute blood loss anemia
Normocytic anemia, likely from GI bleed
History of alcohol use disorder.
S/p crossmatch, 1 unit of transfusion 01/24/2025
Hb 8.7--8.2--7.4--8.2--6.7--9.5--9.8--11
Supplement thiamine and folate in the light of alcohol use disorder.
Trend H&H, transfuse if Hb drops less than 7.
# Alcohol use disorder-
Last drink-about 2 days ago
Obtain blood alcohol and beta-hydroxybutyrate levels
Mildly acidotic, CO2 at 21.
Obtain urine drug screen
MSAS protocol, supplement thiamine and folate.
check magnesium and phosphorus
# Hyponatremia-
Likely hypovolemic hyponatremia from dehydration, improved
Trend electrolytes.
# Chronic cough-
Likely from bronchitis, or COPD
Former smoker, [id number] smoking history
Obtain chest x-ray negative , obtain PFTs as an out patient
Albuterol nebulizations as needed
# Hypertension-
continue home meds with holding parameters
#Hyperlipidemia
continue home meds
#Generalized anxiety
Continue home meds
#Breast cancer in remission
#DVT prophylaxis-
sequential compression devices
# CODE STATUS-full code.
Anticipated Discharge: Today
Subjective/Interval History
-
Date of Service: January 29, 2025
Patient symptoms improved today. No N/V. No abd pain. She still have cough that has been chronic since 11/2024. She had one bowel movement this morning and was dark. Has been told by the GI who has been following her that it is expected as her EGD
yesterday doesn't show any active bleeding.
Objective Data
-
Labs:
Laboratory Results
01/29/25
06:18
WBC 7.0
Hgb 11.0 L D
Hct 33.2 L
Plt Count 298 D
Sodium 139
Potassium 4.2
Chloride 105
Carbon Dioxide 30
BUN 11
Creatinine 0.8
Glucose 94
Calcium 9.6
Total Bilirubin 0.3
AST 29
ALT 20
Alkaline Phosphatase 68
Vital Signs:
Vital Signs
Temp Pulse Resp BP Pulse Ox
97.4 F 90 18 120/61 97
01/29/25 12:41 01/29/25 12:41 01/29/25 12:41 01/29/25 12:41 01/29/25 12:41
I&O
01/28/25 01/29/25 01/30/25
06:59 06:59 06:59
Intake Total 1130 / 1130 360 / 360
Balance 1130 / 1130 360 / 360
Review of Systems
-
History Source: Patient
Respiratory: Reports Cough
Cardiac: Reports No Symptoms
Abdomen/GI: Reports Abdominal Pain (mild lower abd pain)
Genitourinary: Reports No Symptoms
Musculoskeletal: Reports No Symptoms
Neuro: Reports No Symptoms
Physical Exam
-
General: Well Developed, Well Nourished, No Apparent Distress and Comfortable
Respiratory: Clear to Auscultation
Cardiac: Regular Rhythm and S1/S2
GI: Soft, Nontender and Nondistended
Rectal: Other (Dark stool)
Genito-urinary: Clear Urine
Musculoskeletal: No Clubbing, No Cyanosis and No Edema
Skin: Warm and Dry
Neuro: Awake, Alert, Oriented and Nonfocal/Grossly Intact
== END 2025-01-29 12:57 | disposition home or self-care (01) | DRG 378 ==
LOC: 4 WEST ACU 12:01
PROVIDERS: Internal Medicine Gastroenterology; Nurse Practitioner Family; Specialist Research Data Abstracter/Coder; Student in an Organized Health Care Education/Training Program; ADMITTING PHYSICIAN Internal Medicine; ATTENDING PHYSICIAN Hospitalist; EMERGENCY PHYSICIAN Emergency Medicine; FAMILY PHYSICIAN Family Medicine; OTHER PHYSICIAN Internal Medicine Gastroenterology
PROC: 0W3P8ZZ Control Bleeding in Gastrointestinal Tract, Via Natural or Artificial Opening Endoscopic (ICD-10-PCS; 2025-01-24)
PROC: 30233N1 Transfusion of Nonautologous Red Blood Cells into Peripheral Vein, Percutaneous Approach (ICD-10-PCS; 2025-01-24)
PROC: 0DB68ZX Excision of Stomach, Via Natural or Artificial Opening Endoscopic, Diagnostic (ICD-10-PCS; 2025-01-28)
DX: K26.0 Acute duodenal ulcer with hemorrhage (principal); D62 Acute posthemorrhagic anemia; E87.1 Hypo-osmolality and hyponatremia; E87.20 Acidosis, unspecified; K44.9 Diaphragmatic hernia without obstruction or gangrene; Z87.11 Personal history of peptic ulcer disease; Z85.3 Personal history of malignant neoplasm of breast; Z87.891 Personal history of nicotine dependence; J44.89 Other specified chronic obstructive pulmonary disease; F10.10 Alcohol abuse, uncomplicated; E86.1 Hypovolemia; I10 Essential (primary) hypertension; E86.0 Dehydration; Z90.12 Acquired absence of left breast and nipple; E78.00 Pure hypercholesterolemia, unspecified; F41.1 Generalized anxiety disorder; K21.9 Gastro-esophageal reflux disease without esophagitis; K31.89 Other diseases of stomach and duodenum; Z79.899 Other long term (current) drug therapy; Z86.0100 Personal history of colon polyps, unspecified
CPT/HCPCS: 36430; 71046; 80053; 80306; 81003; 81015; 82010; 82077; 82728; 82977; 83540; 83550; 83690; 83735; 84100; 85014; 85018; 85025; 85027; 85610; 85730; 86850; 86900; 86901; 86920; 88305; 88342; 90677; 93005; 96365; 96366; 99291; G0009; P9016

== ENCOUNTER 2025-02-02 13:11 | Inpatient (IN) | payer MEDICARE, SELFPAY ==
[2025-02-02] VITALS (23 sets, daily range): BP systolic 74–145; BP diastolic 27–121; BMI 21.4
[2025-02-02 12:10] LABS: Hematocrit 21.6 % (37.0-47.0); Hemoglobin 7.2 g/dL (12.0-16.0); Mean Corp Hgb Conc. 33.3 g/dL (33.0-37.0); Mean Corpuscular Volume 94.7 fL (81.0-99.0); Nucleated Red Blood Cells % 0 %; Platelet Count 335 10^3/uL (130-400); Red Cell Dist. Width 16.8 % (11.5-14.5)
[2025-02-02 12:24] LABS: ALT (SGPT) 20 U/L (0-35); AST (SGOT) 29 U/L (14-36); Albumin 3.7 g/dl (3.5-5.0); Alkaline Phosphatase 72 U/L (38-126); Blood Urea Nitrogen 33 mg/dl (7-17); Calcium 9.0 mg/dl (8.4-10.2); Carbon Dioxide 22 mmol/L (22-30); Chloride 107 mmol/L (98-107); Estimated Creatinine Clearance 55 ml/min; Glucose 131 mg/dl (70-99); INR 0.97; PT 13.2 Sec (11.4-14.6); Potassium 3.7 mmol/L (3.5-5.1); Sodium 136 mmol/L (135-145); Total Protein 6.1 g/dl (6.3-8.2); eGFR > 60.00
--- NOTE | 2025-02-02 12:28 | ED.GENMED ---
History of Present Illness
<Alyssa Waddell PA-C - Last Filed: 02/02/25 12:56>
General
Chief Complaint: Weakness
Source: patient
Exam Limitations: none
Time Seen by Provider: 02/02/25 12:10
Nursing documentation reviewed up to this point in time: agreed with
History of Present Illness
History of Present Illness:
see MDM
Past History
<Alyssa Waddell PA-C - Last Filed: 02/02/25 12:56>
Past History
ED Past Medical History: HTN and Hypercholesterolemia
Social History
Employment: Employed
Phy Exam
<Alyssa Waddell PA-C - Last Filed: 02/02/25 12:56>
Physical Exam
Physical Exam:
see MDM
Course
<Alyssa Waddell PA-C - Last Filed: 02/02/25 12:56>
Orders/Labs/Results
Orders:
Orders
02/02/25 12:01
Type And Crossmatch [Type+Screen] Urgent
Complete Blood Count/With Diff Urgent
Comprehensive Metabolic Panel Urgent
Prothrombin Time Urgent
02/02/25 12:20
Blood Bank Products [* Blood Bank Products] Urgent
Blood Bank Products: *Packed RBC Leuko (PRBC's
Quantity: 2
Transfuse Today: Yes
Reason: Bleeding
Pantoprazole [Protonix IV] 40 mg IV NOW STA
02/02/25 12:21
0.9% Sodium Chloride 250 ml [Nss] 250 ml IV BOLUS
Acetaminophen [Tylenol] 650 mg PO NOW STA
02/02/25 12:30
Pantoprazole 80 mg/100 ml Nss [Protonix] 80 mg in 100 ml IV Q10H
Abnormal Lab Results
02/02/25
12:01
RBC 2.28 L 10^6/uL
(4.20-5.40)
Hgb 7.2 L D g/dL
(12.0-16.0)
Hct 21.6 L %
(37.0-47.0)
MCH 31.6 H pg
(27.0-31.0)
RDW 16.8 H %
(11.5-14.5)
Absolute Lymphs (auto) 1.1 L 10^3/uL
(1.2-3.4)
Lymphocytes % 19.3 L %
(20.5-51.1)
Monocytes % 11.3 H %
(1.7-9.3)
BUN 33 H mg/dl
(7-17)
Glucose 131 H mg/dl
(70-99)
Total Protein 6.1 L g/dl
(6.3-8.2)
02/02/25 12:01
02/02/25 12:01
Vital Signs
Initial and Last Documented VS:
Initial Vital Signs
Temp Pulse Resp BP Pulse Ox
37.0 C 121 16 87/56 98
02/02/25 11:37 02/02/25 11:37 02/02/25 11:37 02/02/25 11:37 02/02/25 11:37
Last Documented Vital Signs
Temp Pulse Resp BP Pulse Ox
37.0 C 106 12 99/53 99
02/02/25 11:37 02/02/25 12:30 02/02/25 12:30 02/02/25 12:16 02/02/25 12:30
Jameslt;Vick Madden, DO - Last Filed: 02/02/25 12:48>
Orders/Labs/Results
Orders:
Orders
02/02/25 12:01
Type And Crossmatch [Type+Screen] Urgent
Complete Blood Count/With Diff Urgent
Comprehensive Metabolic Panel Urgent
Prothrombin Time Urgent
02/02/25 12:20
Blood Bank Products [* Blood Bank Products] Urgent
Blood Bank Products: *Packed RBC Leuko (PRBC's
Quantity: 2
Transfuse Today: Yes
Reason: Bleeding
Pantoprazole [Protonix IV] 40 mg IV NOW STA
02/02/25 12:21
0.9% Sodium Chloride 250 ml [Nss] 250 ml IV BOLUS
Acetaminophen [Tylenol] 650 mg PO NOW STA
02/02/25 12:30
Pantoprazole 80 mg/100 ml Nss [Protonix] 80 mg in 100 ml IV Q10H
Abnormal Lab Results
02/02/25
12:01
RBC 2.28 L 10^6/uL
(4.20-5.40)
Hgb 7.2 L D g/dL
(12.0-16.0)
Hct 21.6 L %
(37.0-47.0)
MCH 31.6 H pg
(27.0-31.0)
RDW 16.8 H %
(11.5-14.5)
Absolute Lymphs (auto) 1.1 L 10^3/uL
(1.2-3.4)
Lymphocytes % 19.3 L %
(20.5-51.1)
Monocytes % 11.3 H %
(1.7-9.3)
BUN 33 H mg/dl
(7-17)
Glucose 131 H mg/dl
(70-99)
Total Protein 6.1 L g/dl
(6.3-8.2)
02/02/25 12:01
02/02/25 12:01
Vital Signs
Initial and Last Documented VS:
Initial Vital Signs
Temp Pulse Resp BP Pulse Ox
37.0 C 121 16 87/56 98
02/02/25 11:37 02/02/25 11:37 02/02/25 11:37 02/02/25 11:37 02/02/25 11:37
Last Documented Vital Signs
Temp Pulse Resp BP Pulse Ox
37.0 C 106 12 99/53 99
02/02/25 11:37 02/02/25 12:30 02/02/25 12:30 02/02/25 12:16 02/02/25 12:30
<Alyssa Waddell PA-C - Last Filed: 02/02/25 12:56>
MDM/Problems Addressed
MDM/Problems Addressed:
Note:
CHIEF COMPLAINT(S)
Severe abdominal pain and significant diarrhea with altered coloration.
HISTORY OF PRESENT ILLNESS
The patient is a 65-year-old female who presents with a history of sudden onset severe abdominal pain and a single episode of diarrhea that was described as black and purple in color. The episode occurred shortly after midnight. The patient was
recently discharged three days ago following hospitalization for gastrointestinal bleeding and confusion. She had undergone treatment for duodenal ulcers, including endoscopic cauterization of one bleeding ulcer and non-bleeding duodenal ulcers.
Upon discharge, her hemoglobin was noted to be at 11 g/dL. The patients current hemoglobin is 7.4 g/dL. She reports no vomiting or melena since discharge. However, she has experienced lightheadedness and felt as if her heart was pounding when
walking or sitting upright. Previously, her blood pressure runs around 99/50 mmHg while she is taking antihypertensive medication. She denies alcohol use for eleven months and is not on anticoagulants.
PAST MEDICAL AND SURGICAL HISTORY
The patient has a history of being on medication for high blood pressure and hyperlipidemia. Past surgical history includes a mastectomy performed three years ago with no complications reported post-operatively.
CHRONIC MEDICAL CONDITIONS SIGNIFICANTLY AFFECTING CARE
Hypertension and hyperlipidemia.
MEDICATIONS
The patient is taking pantoprazole 40 mg twice a day for gastrointestinal issues and medications for high blood pressure and cholesterol, though specific medications and dosages were not specified.
PHYSICAL EXAM
- Nursing notes reviewed and vital signs reviewed.
GENERAL: Alert , in no apparent distress
EYE: pupils equal and reactive, pale
NECK: Supple
ENT: o/p clr, mmm.
CARDIAC: Tachycardic
LUNGS: Clear breath sounds bilaterally, no acute respiratory distress, no wheezes/rales/rhonchi
ABDOMEN: Soft, without focal tenderness, no r/g, no cvat, normal bowel sounds
Heme positive dark reddish stool, no active bleeding
NEUROLOGICAL: Alert and oriented, no focal neuro deficits
SKIN: Warm and dry, skin intact.
MUSCULOSKELETAL: No edema, well perfused. neg evelyn's sign
PSYCH: Normal and appropriate interaction.
PLAN
- Consent obtained for blood transfusion due to low hemoglobin levels.
- Plan to administer two units of packed red blood cells.
- Monitor vital signs closely during the transfusion.
- Assess for potential complications including fever and allergic reactions.
- Review medication compliance and general counselor on pantoprazole administration with respect to meal timing.
- Consider further endoscopic evaluation if symptoms persist.
DIFFERENTIAL DIAGNOSIS
The Differential Diagnosis includes, in no particular order and is not limited to:
1. Gastrointestinal bleeding due to peptic ulcer disease
2. Adverse drug reaction
3. Gastroesophageal reflux disease (GERD) with bleeding
4. Ischemic bowel disease
5. Colonic diverticulosis with bleeding
6. Aortoenteric fistula
7. Angiodysplasia of the gastrointestinal tract
8. Esophageal varices
9. Ciara-Funk tear
10. Upper gastrointestinal neoplasm
Disposition:
SUMMARY OF ENCOUNTER
The patient, a 65-year-old female with a history of peptic ulcer and duodenal ulcer disease, hypertension, and hyperlipidemia, presented to the emergency department with symptoms of lightheadedness and symptomatic anemia. The lightheadedness began
the previous night and was notably positional. She reported a single large episode of diarrhea with dark purple coloration, appearing bloody, but no further bleeding since. On examination, she had tachycardia with a heart rate of 110-120 bpm and
hypotension with blood pressure in the 80s to 90s. Examination revealed a heme-positive stool that was slightly reddish, but there was no active bleeding seen. Her hemoglobin had decreased from 11 to 7.2 g/dL over four days. Given the significant
drop in hemoglobin and symptomatic anemia, she required admission for further stabilization. Consent was obtained for a blood transfusion, and a gastrointestinal consult was initiated.
DISPOSITION
Admit
ASSESSMENT
The patient likely has rebleeding from her known peptic and duodenal ulcer disease, leading to symptomatic anemia and hemodynamic instability, compounded by positional lightheadedness.
EMERGENCY TREATMENTS ADMINISTERED
Consent obtained for blood transfusion.
MANAGEMENT OF THE PATIENTS CARE WAS DISCUSSED WITH
Gastroenterology consult obtained for further evaluation and management of gastrointestinal bleeding.
PLAN
Administer blood transfusion to stabilize hemoglobin levels. Admit the patient for stabilization with close monitoring of vital signs and further evaluation of gastrointestinal bleeding.
INDEPENDENT REVIEW OF LABS AND INTERPRETATION OF TESTS
My independent review of the complete blood count (CBC) indicates a significant drop in hemoglobin from 11 g/dL to 7.2 g/dL over four days, consistent with symptomatic anemia and potential gastrointestinal bleeding.
MEDICAL DECISION MAKING
- Number and Complexity of Problems Addressed: Chronic conditions affecting care include peptic ulcer disease, duodenal ulcer disease, hypertension, and hyperlipidemia. Differential diagnosis includes gastrointestinal bleeding due to peptic ulcer
disease, adverse drug reaction, gastroesophageal reflux disease (GERD) with bleeding, ischemic bowel disease, colonic diverticulosis with bleeding, aortoenteric fistula, angiodysplasia of the gastrointestinal tract, esophageal varices, Ciara-Funk
tear, and upper gastrointestinal neoplasm.
- Data:
Category 1
- Non-emergency department records reviewed, including previous hemoglobin levels obtained from the patients history.
Category 2
- My independent interpretation confirms the significant drop in hemoglobin from 11 to 7.2 g/dL, correlating with symptomatic anemia.
Category 3
- Discussion of management and potential complications with the gastroenterology team regarding the need for further endoscopic evaluation and monitoring.
DIAGNOSIS
- Gastrointestinal bleeding due to peptic ulcer disease (K25.4)
- Symptomatic anemia due to acute blood loss (D62)
- Hypertension (I10)
- Hyperlipidemia (E78.5)
<Alyssa Waddell PA-C - Last Filed: 02/02/25 12:56>
*Pulse Oximetry
SaO2: 99
Oxygen Mode of Delivery: Room air
<Vick Madden DO - Last Filed: 02/02/25 12:48>
*Pulse Oximetry
Patient hypoxic: no
*Critical Care Note
Total Time (30-74mins, 75-104mins- exclusive of procedures): 31
ED Attending Note
<Alyssa Waddell PA-C - Last Filed: 02/02/25 12:56>
-
Portions of this chart may have been created with voice recognition software.� Occasional wrong word or��sound alike� substitutions may have occurred due to the inherent limitations of voice recognition software.
<Vick Madden DO - Last Filed: 02/02/25 12:48>
ED Attending Note
Patient seen and examined by attending physician: Yes
I performed the substantive portion of visit, reviewed & personally made and approve the management plan that is documented in note by myself or GIANNI.: Yes
ED Attending Note:
Seen with PA examined independently prior discharge summary reviewed 65-year-old female returns with signs of GI bleeding weakness quit drinking 11 days ago she been on steroids for sinus infection felt reasonably well the past few days and had some
upper abdominal cramping loose black and bloody bowel movement here she is tachycardic hypotensive and anemic, plan will be IV fluids PPI transfusion GI consultation and admission
Discharge Plan
Departure
Patient Disposition: Admit
Date of Disposition: 02/02/25
Time of Disposition: 12:50
Admit to: IMU
Presentation/result/management discussed w/ accepting MD/DO: Hospitalist
Patient with high blood pressure during this ER visit?: No
Condition: Fair
Covid-19: Not Applicable
Discharge Problem:
Acute upper GI bleeding, Symptomatic anemia
Prescriptions:
No Action
paroxetine HCl 20 mg tablet
20 mg PO DAILY
simvastatin 20 mg tablet
20 mg PO QPM
gabapentin 300 mg capsule
300 mg PO HS
melatonin 2.5 mg Tablet,Chewable
2.5 mg PO HSPRN PRN (Reason: sleep)
acetaminophen [Tylenol] 325 mg Tablet
650 mg PO Q6HPRN PRN (Reason: mild pain)
valsartan 160 mg Tablet
160 mg PO DAILY
pantoprazole 40 mg tablet,delayed release (DR/EC)
40 mg PO BID 56 Days Qty: 112 0RF
calcium carbonate [Tums] 200 mg calcium (500 mg) Tablet,Chewable
200 mg PO BIDPRN PRN (Reason: gerd)
vitamin B complex [B Complete] Tablet
1 tab PO DAILY
Referrals:
UNKNOWN - PT DOES,NOT KNOW [Unknown Provider]
Interventions
Interventions:
*Risk Screen - Suicide Last Done: 02/02/25 11:37
*General Assessment Last Done: 02/02/25 11:53
*Neglect/Abuse Screening Last Done: 02/02/25 11:37
*ED- Fall Risk Assessment Last Done: 02/02/25 11:53
*ED COVID-19 Vaccine History Last Done: 02/02/25 11:53
*ED Influenza Vaccine History Last Done: 02/02/25 11:53
ED- Cardiac Assessment Last Done: 02/02/25 11:53
ED- Neurological Assessment Last Done: 02/02/25 11:53
ED- Pulmonary Assessment Last Done: 02/02/25 11:53
Discharge Date and Time
Print Language: EQUATORIAL GUINEAN
[2025-02-02] MEDS: TYLENOL 650 MG PO (12:31)
[2025-02-02] MEDS: PROTONIX IV 40 MG IV (12:31)
[2025-02-02] MEDS: NSS 250 IV ×2 (12:31→19:55)
[2025-02-02] MEDS: PROTONIX 100 IV ×2 (12:32→21:41)
--- NOTE | 2025-02-02 12:32 | HPS.HSE ---
Family Physician
-
Family Physician: NOT KNOW UNKNOWN - PT DOES
Chief Complaint
-
GI bleed
History of Present Illness
65-year-old female with past medical history of hypertension, hyperlipidemia, anxiety, breast cancer who presents with a history of sudden onset severe abdominal cramps followed by single episode of diarrhea that was described as black and
purplish, red in color. The episode occurred shortly after midnight. she is feeling lightheaded, dizzy and weak since then. she felt palpitation. Patient denied fever, chills, chest pain, short of breath. She is complaining of a headache. Patient
denied any dysuria materia.
the patient was recently discharged three days ago following hospitalization for gastrointestinal bleeding. She had undergone treatment for duodenal ulcers, including endoscopic cauterization of one bleeding ulcer and non-bleeding duodenal ulcers.
Upon discharge, her hemoglobin was noted to be at 11 g/dL. The patients current hemoglobin is 7.4 g/dL.
Patient initiated on Protonix drip. Patient ordered 2 units of blood
Medical History
Past Medical History
Past Medical History: Reports Other
Additional Past Medical History:
Hypertension, hyperlipidemia, breast cancer,
Past Surgical History: Reports Other
Additional Past Surgical History:
Left breast biopsy
Social History
Tobacco: Former Smoker
Alcohol: Former
Drug: None
Personal: Partner
Living: With Family
Family History
Family History: Not pertinent
Allergies / Home Medications
Allergies reflects when Allergies were last updated in [employer] ([place]).
Home Medications with original date entered in [employer] ([place])
Allergy/Medication List:
Allergies
Allergy/AdvReac Type Severity Reaction Status Date / Time
No Known Allergies Allergy Verified 02/02/25 11:36
Home Medications
gabapentin 300 mg capsule 300 mg PO HS mild Pain 01/24/24
melatonin 2.5 mg chewable tablet 2.5 mg PO HSPRN PRN sleep 01/24/24
paroxetine HCl 20 mg tablet 20 mg PO DAILY Mental Health/Anxiety 01/24/24
simvastatin 20 mg tablet 20 mg PO QPM High Cholesterol 01/24/24
acetaminophen 325 mg tablet (Tylenol) 650 mg PO Q6HPRN PRN mild pain 01/24/25
valsartan 160 mg tablet 160 mg PO DAILY Blood Pressure 01/24/25
pantoprazole 40 mg tablet,delayed release 40 mg PO BID Peptic ulcer 8 weeks #112 tabs 01/29/25
calcium carbonate (Tums) 200 mg PO BIDPRN PRN gerd 02/02/25
vitamin B complex 1 tab PO DAILY 02/02/25
Review of Systems
-
Constitutional: Reports No Symptoms
EENT: Reports No Symptoms
Respiratory: Reports No Symptoms
Cardiac: Reports No Symptoms
Abdomen/GI: Reports Abdominal Pain and Bloody Stools
: Reports No Symptoms
Musculoskeletal: Reports No Symptoms
Skin: Reports No Symptoms
Neurological: Reports No Symptoms
Endocrine: Reports No Symptoms
Hematologic/Lymphatic: Reports No Symptoms
Psych: Reports No Symptoms
Physical Exam
Vital Signs
Vital Signs
Temp Pulse Resp BP Pulse Ox
98.6 F 110 11 83/56 99
02/02/25 11:37 02/02/25 12:00 02/02/25 12:00 02/02/25 12:00 02/02/25 12:29
Physical Exam
General: Well Developed, Well Nourished and No Apparent Distress
HEENT: NormoCephalic, Moist mucous membranes and Atraumatic
Respiratory: Clear
Cardiac: S1/S2 and Regular Rhythm; No Murmur or Rub
GI: Soft, Non Tender, Non Distended and Normal Bowel Sounds; No Organomegaly
Rectal: Deferred by Provider
Musculoskeletal: No Clubbing, No Cyanosis and No Edema
Skin: No Rash
Neuro: AO x 3 and Nonfocal/grossly intact
Psych: Calm
Laboratory Results
-
02/02/25 12:01
02/02/25 12:01
Laboratory Results
Total Bilirubin 0.2 mg/dl (0.2-1.3) 02/02/25 12:01
AST 29 U/L (14-36) 02/02/25 12:01
ALT 20 U/L (0-35) 02/02/25 12:01
Alkaline Phosphatase 72 U/L (38-126) 02/02/25 12:01
Data Reviewed
-
Lab Data: Labs Reviewed by me
Impression/Plan
-
# Symptomatic GI bleed
- Hypotensive, tachycardic, near syncope secondary to GI bleed
# Acute blood loss anemia
- Rectum with trace blood dark
- Hemoglobin 7.2
- Patient received 1 unit of blood
- IV Protonix drip
- Keep patient n.p.o.
- GI consult
-GI endoscopy on 01/24/2025 with duodenal ulcers and stigmata of recent bleed
-Endoscopy 01/28/2025 , no bleeding ulcer
# Alcohol use disorder-
Last drink-about 11 days
# Chronic cough
# Hypertension-
-hold valsartan
#Hyperlipidemia
continue zocor
#Generalized anxiety
Continue Paxil
#Breast cancer in remission
#DVT prophylaxis-
sequential compression devices
# CODE STATUS-full code.
--- NOTE | 2025-02-02 13:21 | W.PN.UPDATE ---
Addendum entered and electronically signed by Freeman Putnam MD 02/02/25 17:02:
Case dw GI
Hg dropped to 5.4
Sinus Tachy
Soft BP
case dw GI
- Prior EGD did not show any varix per GI
- cont. Blood Tx, NPO , PPI gtt
- FU H & H closely
- Observe furtehr episodes of active GIB
Original Note:
Update Note
Progress Note Update
This note serves as an addendum to the H&P by suspect artist supervisor GIANNI�
Malathi GONZALEZ�
HPI�
65M HX hypertension, hyperlipidemia, anxiety, breast cancer seen at ER
- DC'd on 01/30 for UGI bleed 2/2 DU s/p EGD endoscopic cauterization of one bleeding DU and non-bleeding DU
- sudden onset severe abdominal cramps followed by single episode of diarrhea, black and purplish red around MN
- feeling lightheaded, dizzy and weak and palpitation.
- denied fever, chills, chest pain, short of breath.
- current Hgb 7.4 g/dL. Upon discharge, her hemoglobin was noted to be at 11 g/dL.
ER TX:
on Protonix drip. Patient ordered 2 units of blood
Relevant VS
Temp Pulse Resp BP Pulse Ox
98.6 F 96 17 93/59 99
02/02/25 11:37 02/02/25 13:15 02/02/25 13:15 02/02/25 13:00 02/02/25 13:15
PE
No Apparent Distress
HEENT: Moist mucous membranes
Respiratory: Clear
Cardiac: S1/S2 and Regular Rhythm
GI: Soft, Non Tender, Non Distended and Normal Bowel Sounds
Rectal: Deferred by Provider
Musculoskeletal: No Clubbing, No Cyanosis and No Edema
Skin: No Rash
Neuro: AO x 3 and Nonfocal/grossly intact
Psych: Calm
Labs
01/29/25 02/02/25
06:18 12:01
WBC 7.0 5.6
Hgb 11.0 L D 7.2 L D
MCV 93.5 94.7
Plt Count 298 D 335
01/29/25 02/02/25
06:18 12:01
INR 0.97
Potassium 3.7
Creatinine 0.8 0.8
eGFR > 60.00 > 60.00
Last hospitalist admission: 01/24/25 -01/29/25
01/24/2025 EGD: duodenal ulcers and stigmata of recent bleed
01/28/2025 f/u EGD : no bleeding ulcer
ASSESSMENT & PLAN
Symptomatic recurrent GIB c/b ACBLA
- Hypotensive, tachycardic, near syncope due GIB
- Rectum with trace blood dark
- Hemoglobin 7.2
- Consented Blood per ER
- agree with 1 unit of blood
- Trend H & H
- Protonix gtt
- NPO
- GI consult
HX ETOH l use disorder-
- Last drink-about 11 days
Bn Hypertension-
- Hold valsartan
Generalized anxiety
- c/w Paxil
HC CA Breast in remission
DVT Px: SCD
Full code
IMU
[2025-02-02 16:24] LABS: Hematocrit 16.6 % (37.0-47.0); Hemoglobin 5.4 g/dL (12.0-16.0)
[2025-02-02] MEDS: LIPITOR 10 MG PO (19:55)
[2025-02-02] MEDS: NEURONTIN 300 MG PO (21:41)
[2025-02-03] VITALS (12 sets, daily range): BP systolic 83–113; BP diastolic 44–96; BMI 21.4
[2025-02-03 01:08] LABS: Hematocrit 25.1 % (37.0-47.0); Hemoglobin 8.4 g/dL (12.0-16.0)
--- NOTE | 2025-02-03 01:43 | PTCARENOTE ---
Second unit of pRBC's transfused without issue; Pt continues to report weakness and mild lightheadedness with posture change - currently only standing and pivoting to BSC; Pt had large mostly formed black/burgundy stool x 1 overnight; VSS; SR/ST
on monitor; 95% on RA; Will continue to monitor and assess.
[2025-02-03 06:10] LABS: Hematocrit 27.8 % (37.0-47.0); Hemoglobin 9.1 g/dL (12.0-16.0); Mean Corp Hgb Conc. 32.7 g/dL (33.0-37.0); Mean Corpuscular Volume 90.0 fL (81.0-99.0); Platelet Count 279 10^3/uL (130-400); Red Cell Dist. Width 18.7 % (11.5-14.5)
--- NOTE | 2025-02-03 07:11 | W.PN.HOSP.TC ---
Today's Communication/Plan
-
Doing better after transfusion of 2 units of red blood cells last night, and Hgb also improved
Bedrest for now until EGD completed to prevent falls and symptoms/syncope
Monitor H&H Q6H and transfuse as needed to maintain Hgb>7
NPO after midnight for EGD
Assessment / Plan
Assessment / Plan
Physical Exam
General: Not in acute distress
HEENT: Normocephalic, Moist mucous membranes and Atraumatic
Respiratory: Clear to Auscultation Bilaterally
Cardiac: S1/S2 and Regular Rhythm
GI: Soft, Non Tender, Non Distended and Normal Bowel Sounds
Musculoskeletal: No Cyanosis and No Edema
Skin: Warm. Dry.
Neuro: AAO x 3 and Nonfocal/grossly intact
Psych: Calm
Assessment/Plan
65-year-old female with past medical history of hypertension, hyperlipidemia, anxiety, breast cancer who presented with a history of sudden onset severe abdominal cramps followed by single episode of diarrhea that was described as black and
purplish, red in color. The episode occurred shortly after midnight on 02/02/25. she is feeling lightheaded, dizzy and weak since then, as well as headache. she felt palpitation. Patient denied fever, chills, chest pain or shortness of breath.
Patient denied any urinary tract infection symptoms. The patient was recently discharged about three days prior to presentation, following hospitalization for gastrointestinal bleeding. She had undergone treatment for duodenal ulcers, including
endoscopic cauterization of one bleeding ulcer and non-bleeding duodenal ulcers. Upon discharge, her hemoglobin was noted to be at 11 g/dL. The patient's Hgb shortly after admission was 5.4. Patient was started on Protonix drip, and 2 units of red
blood cells were transfused.
#Recent (early January 2025) Acute on chronic blood loss anemia secondary to upper GI bleed with bleeding duodenal ulcer status post EGD bleeding duodenal ulcer (s/p epinephrine for hemostasis
coagulation) noted along with nonbleeding duodenal ulcers
#Recurrent Symptomatic Gastrointestinal bleeding with melena this admission
#Presentation with lightheadedness, fatigue, palpitations abdominal cramps, diarrhea and melena this admission
- Patient had 2 EGDs last admission, second one was done to make sure no further bleeding after a Hgb drop during that hospitalization
- Hypotensive, tachycardic, near syncope secondary to GI bleed -- improved after PRBC transfusions
- Received 2 units of PRBCs this admission
- Continue IV Protonix drip
- Okay for Clear Liquids Diet for now, but NPO after midnight for EGD tomorrow
- GI consult appreciated -- EGD tomorrow
- If EGD is negative for a source of bleeding, then per GI, no colonoscopy as unlikely colonoscopy would be revealing (and patient had colonoscopy earlier this year)....the next step would capsule endoscopy
- I spoke on 02/03/25 extensively to patient and her family, in-person, inside patient's room (please see below for details) about management in detail, going forward
- Monitor H&H Q6H and transfuse RBCs to maintain Hgb>7
- Continue to keep patient in, and monitor patient closely in IMU
#Alcohol use disorder
-Last drink was about 11 days prior to admission
-Patient will be monitored closely for any signs or symptoms or alcohol withdrawal
#History of Hyponatremia
-Sodium normal this admission, last admission was thought to be from dehydration
#Chronic cough (as reported last admission earlier in January 2025)
#Former smoker, [id number] smoking history
-Per last admission progress note: it was likely from bronchitis, or COPD
-Albuterol nebulizations as needed -- may want to use Xopenex instead given tachycardia associated with patient's blood loss
#Hypertension
-Hold all antihypertensives at this time given soft/low blood pressure especially in the setting of significant anemia and GI bleed
#Hyperlipidemia
-Continue Zocor or equivalent
#Generalized Anxiety
-Continue Paxil
#Breast cancer in remission
DVT Prophylaxis: sequential compression devices; NO pharmacologic DVT prophylaxis given bleeding/anemia
CODE STATUS: Full Code
Family Discussions
On 02/03/25, I spoke extensively with patient and her family members (all of whom were present inside patient's room), they agreed that first we should see what patient's repeat endoscopy shows on 02/04/25, and then decide based on the results of
that EGD, on whether to start transfer to [facility] in [facility]. I thoroughly explained possible options to them. I told them that if no source of bleeding is found and patient is stable, and transfer is initiated for the purpose of
capsule endoscopy, it can potentially take days before she is actually transferred, or she might not even be accepted there and in that case would need to make outpatient appointment. Patient family was onboard with plan moving forward. Patient's
family needs to be kept closely updated and shared-decision needs to be made based on patient's clinical condition, with the possibility that transfer center might need to be contacted depending on their wishes and on the results of EGD on 02/04/25.
Anticipated Discharge: 24 - 48 hours
Subjective/Interval History
-
Date of Service: February 03, 2025
Patient was seen and examined. She was doing okay, no dizziness, chest pain or shortness, except she was still having dark black stools.
Objective Data
-
Labs:
Laboratory Results
02/03/25 02/03/25
00:46 05:51
WBC 7.1
Hgb 8.4 L D 9.1 L
Hct 25.1 L 27.8 L
Plt Count 279
Sodium Pending
Potassium Pending
Chloride Pending
Carbon Dioxide Pending
BUN Pending
Creatinine Pending
Glucose Pending
Calcium Pending
Vital Signs:
Vital Signs
Temp Pulse Resp BP Pulse Ox
98.1 F 86 13 91/57 95
02/03/25 02:59 02/03/25 02:25 02/03/25 02:25 02/03/25 02:25 02/03/25 01:46
I&O
02/02/25 02/03/25 02/04/25
06:59 06:59 06:59
Intake Total 1600 / 1600
Balance 1600 / 1600
[2025-02-03 07:35] LABS: Blood Urea Nitrogen 22 mg/dl (7-17); Calcium 8.8 mg/dl (8.4-10.2); Carbon Dioxide 26 mmol/L (22-30); Chloride 109 mmol/L (98-107); Estimated Creatinine Clearance 65 ml/min; Glucose 93 mg/dl (70-99); Potassium 4.5 mmol/L (3.5-5.1); Sodium 137 mmol/L (135-145); eGFR > 60.00
[2025-02-03] MEDS: PAXIL 20 MG PO (08:10)
[2025-02-03] MEDS: PROTONIX 100 IV ×2 (08:30→18:22)
--- NOTE | 2025-02-03 08:39 | CM ---
Patient seen at bedside with sister Ryder
IA Completed
Dx: acute blood loss, anemia
PMH: hypertension, hyperlipidemia, anxiety, breast cancer
Recent hospitalization 01/24
Lives alone in a 2 story home, [address], 14 steps to bedroom/bathroom
PLOF: independent
Denies DME
has had VN 3 yrs ago (cannot recall agency), denies rehab
PCP: Josue Zhu
Pharmacy: [address], [place]
PLAN; Home, no needs anticipated when stable, CM to continue to follow
--- NOTE | 2025-02-03 14:06 | CON.GI ---
Consultation
-
Date/Time Consultation Requested: 02/03/2025
Date/Time Consultation Performed: 02/02/2025
Requesting Provider: hospitalist
Performing Provider: Duran WEST
Reason for Consultation: GI bleeding
Medical History
Chief Complaint / HPI
Chief Complaint: GI bleeding
History of Present Illness:
65-year-old female with past medical history of breast cancer, dyslipidemia, hypertension who was recently admitted with upper GI bleeding secondary to duodenal ulcer admitted again complaining of dark stool/abdominal pain/dizziness. Patient denies
any alcohol consumption since her last hospital admission. Denies any NSAIDs use. Last admission GI notes/EGD reports reviewed.
Patient was discharged with a hemoglobin of 11 on 01/29/2025. Labs during this admission 02/02/2025 Hb was 7.2. Repeat Hb in the evening was 5.4. She received 2 units of blood in the repeat Hb this a.m. was 9.1. She had an episode of dark stool
last night. No episode of hematemesis or dark stool this a.m. Tolerating clear liquid diet this a.m.
Past Medical History
Past Medical History: Other (Hypertension, hyperlipidemia, breast cancer,)
Social History
Tobacco: Non-Smoker
Alcohol: Other (Denies any alcohol consumption since last hospital admission 01/24/2025 )
Allergies / Home Medications
Allergy/AdvReac Type Severity Reaction Status Date / Time
No Known Allergies Allergy Verified 02/02/25 11:36
�Medication �Instructions �Recorded
gabapentin 300 mg capsule 300 mg PO HS mild Pain 01/24/24
melatonin 2.5 mg chewable tablet 2.5 mg PO HSPRN PRN sleep 01/24/24
paroxetine HCl 20 mg tablet 20 mg PO DAILY Mental 01/24/24
Health/Anxiety
simvastatin 20 mg tablet 20 mg PO QPM High Cholesterol 01/24/24
acetaminophen 325 mg tablet 650 mg PO Q6HPRN PRN mild pain 01/24/25
(Tylenol)
valsartan 160 mg tablet 160 mg PO DAILY Blood Pressure 01/24/25
pantoprazole 40 mg tablet,delayed 40 mg PO BID Peptic ulcer 8 weeks 01/29/25
release #112 tabs
calcium carbonate (Tums) 200 mg PO BIDPRN PRN gerd 02/02/25
vitamin B complex 1 tab PO DAILY Supplement 02/02/25
Review of Systems
-
All other systems: A 12 pt ROS was Negative except as stated above in HPI
Vital Signs
Temp Pulse Resp BP Pulse Ox
98.4 F 104 28 113/83 96
02/03/25 11:17 02/03/25 10:00 02/03/25 10:00 02/03/25 10:00 02/03/25 06:19
Physical Exam
Exam
General: No Apparent Distress and Comfortable
Respiratory: Clear
Cardiac: S1/S2
GI: Soft, Non Tender, Non Distended and Normal Bowel Sounds
Neuro: AO x 3
Results
WBC 7.1 10^3/uL (4.8-10.8) 02/03/25 05:51
Hgb 9.1 g/dL (12.0-16.0) L 02/03/25 05:51
Hct 27.8 % (37.0-47.0) L 02/03/25 05:51
MCV 90.0 fL (81.0-99.0) 02/03/25 05:51
Plt Count 279 10^3/uL (130-400) 02/03/25 05:51
Absolute Neuts (auto) 3.7 10^3/uL (1.4-6.5) 02/02/25 12:01
PT 13.2 Sec (11.4-14.6) 02/02/25 12:01
INR 0.97 02/02/25 12:01
Sodium 137 mmol/L (135-145) 02/03/25 05:51
Potassium 4.5 mmol/L (3.5-5.1) 02/03/25 05:51
Chloride 109 mmol/L (98-107) H 02/03/25 05:51
Carbon Dioxide 26 mmol/L (22-30) 02/03/25 05:51
BUN 22 mg/dl (7-17) H 02/03/25 05:51
Creatinine 0.7 mg/dL (0.6-1.0) 02/03/25 05:51
Calcium 8.8 mg/dl (8.4-10.2) 02/03/25 05:51
Total Bilirubin 0.2 mg/dl (0.2-1.3) 02/02/25 12:01
AST 29 U/L (14-36) 02/02/25 12:01
ALT 20 U/L (0-35) 02/02/25 12:01
Alkaline Phosphatase 72 U/L (38-126) 02/02/25 12:01
Diagnostic Image Results:
Prior GI Procedures:
EGD:
01/24/2025 Dr. Peoples
Impression:
- Non-obstructing Schatzki ring.
- Small hiatal hernia.
- Red blood in the gastric body and in the gastric antrum.
- Blood in the duodenal bulb, first and in the second portion of the
duodenum.
- Two Non-bleeding duodenal ulcers with no stigmata of bleeding.
- One Oozing duodenal ulcer with a visible vessel. Injected.
Treated with bipolar cautery.
- Normal first portion of the duodenum and second portion of the
duodenum.
repeat EGD 01/28/2025 Dr. Wheatley
Impression:
- Normal esophagus.
- Non-obstructing Schatzki ring.
- Small hiatal hernia.
- Erythematous mucosa in the stomach. Biopsied.
- Non-bleeding duodenal ulcer with a flat pigmented spot (Fercho
Class IIc).
Colonoscopy: 04/2024 Dr. Peoples
Impression: - Diverticulosis in the sigmoid colon, in the
descending colon and in the transverse colon.
Assessment / Plan
-
65-year-old female with past medical history of hypertension, dyslipidemia, breast cancer s/p mastectomy, alcohol abuse, reflux, prior history of peptic ulcer disease who was recently admitted to the hospital with upper GI bleeding and underwent EGD
x 2 -details above admitted again with abdominal pain/dizziness/dark stool
--Dark stool/upper GI bleeding/recent admission with bleeding duodenal ulcer s/p EGD with hemostasis 01/24. Repeat EGD 01/28 -no active bleeding. stomach bx- negative for h.pylori
-- Acute on chronic anemia. s/p 2 units PRBC
--hx of PUD
-- History of alcohol abuse. liver test normal 02/02
plan
Continue monitor H&H.Keep Hb >7
Continue Protonix drip
Patient is currently on clear liquid diet. N.p.o. after midnight for EGD in a.m.
Patient had a colonoscopy with Dr. Peoples 04/2024. If EGD findings negative for active bleeding would recommend capsule endoscopy for evaluation of small intestine
Plan discussed with patient/patient's family
Total Time Spent with Patient (in minutes): 55
-
-
Thank you for consultation and allowing me to participate in the patient's care. Please call the home service demonstrator GI physician during the after hours with any questions or concerns.
[2025-02-03] MEDS: LIPITOR 10 MG PO (18:19)
[2025-02-03 19:33] LABS: Hematocrit 25.6 % (37.0-47.0); Hemoglobin 8.6 g/dL (12.0-16.0)
[2025-02-03] MEDS: NEURONTIN 300 MG PO (21:22)
[2025-02-04] VITALS (32 sets, daily range): BP systolic 84–168; BP diastolic 48–148; BMI 21.4
[2025-02-04] MEDS: PROTONIX 100 IV ×3 (03:29→23:25)
[2025-02-04 04:05] LABS: Hematocrit 22.2 % (37.0-47.0); Hemoglobin 7.7 g/dL (12.0-16.0); Mean Corp Hgb Conc. 34.7 g/dL (33.0-37.0); Mean Corpuscular Volume 90.2 fL (81.0-99.0); Platelet Count 265 10^3/uL (130-400); Red Cell Dist. Width 18.6 % (11.5-14.5)
[2025-02-04 04:30] LABS: Blood Urea Nitrogen 19 mg/dl (7-17); Calcium 8.9 mg/dl (8.4-10.2); Carbon Dioxide 27 mmol/L (22-30); Chloride 109 mmol/L (98-107); Estimated Creatinine Clearance 65 ml/min; Glucose 89 mg/dl (70-99); Magnesium 2.0 mg/dl (1.6-2.3); Potassium 4.3 mmol/L (3.5-5.1); Sodium 138 mmol/L (135-145); eGFR > 60.00
--- NOTE | 2025-02-04 07:58 | W.PN.HOSP.TC ---
Today's Communication/Plan
-
cont Protonix gtt
monitor H&H, transfuse for goal Hgb>7.5
low dose midodrine with holding parameters
Carafate
clear liquid diet as per GI
Assessment / Plan
Assessment / Plan
Physical Exam
General: Not in acute distress, appears comfortable at this time, Pallor
HEENT: Normocephalic, Moist mucous membranes and Atraumatic
Respiratory: Clear to Auscultation Bilaterally
Cardiac: S1/S2 and Regular Rhythm
GI: Soft, Non Tender, Non Distended and Normal Bowel Sounds
Musculoskeletal: No Cyanosis and No Edema
Skin: Warm. Dry.
Neuro: AAO x 3 conversant coherent
Psych: Calm
Assessment/Plan
65F HTN, HLD, anxiety, breast cancer p/w sudden onset severe abdominal cramps followed by single episode of diarrhea that was described as black and purplish, red in color. The episode occurred shortly after midnight on 02/02/25. she was feeling
lightheaded, dizzy and weak since then, as well as headache. she felt palpitation. Patient denied fever, chills, chest pain or shortness of breath. Patient denied any urinary tract infection symptoms. The patient was recently discharged about three
days prior to presentation, following hospitalization for GIB. She had undergone treatment for duodenal ulcers, including endoscopic cauterization of one bleeding ulcer and non-bleeding duodenal ulcers. Upon discharge, her hemoglobin was noted to be
at 11 g/dL. Re-admission Hgb 5.4. Patient was started on Protonix drip, and 2 units of red blood cells were transfused with appropriate response noted
#Recent (early January 2025) Acute on chronic blood loss anemia secondary to upper GI bleed with bleeding duodenal ulcer status post EGD bleeding duodenal ulcer (s/p epinephrine for hemostasis
coagulation) noted along with nonbleeding duodenal ulcers
#Recurrent Symptomatic Gastrointestinal bleeding with melena this admission
#Presentation with lightheadedness, fatigue, palpitations abdominal cramps, diarrhea and melena this admission
- Patient had 2 EGDs last admission, second one was done to make sure no further bleeding after a Hgb drop during that hospitalization
- Hypotensive, tachycardic, near syncope secondary to GI bleed -- improved after PRBC transfusions
- monitor H&H and transfuse as necessary for goal Hgb>7.5
- Received 3 units of PRBCs this admission
- Continue IV Protonix drip
- GI consult appreciated -- EGD 02/04/25 noted oozing/re-bleeding duodenal ulcer cauterized, Clear liquid diet, cont Protonix gtt
-Carafate ACHS
#Alcohol use disorder
-Last drink was about 11 days prior to admission
-Counseled abstinence further ETOH use at this time
#Chronic cough (as reported last admission earlier in January 2025)
#Former smoker, [id number] smoking history
-Per last admission progress note: it was likely from bronchitis, or COPD
-Albuterol nebulizations as needed
#Hypertension
#Hypotension asymptomatic
-cont hold home Valsartan
-low dose midodrine 2.5 mg TID w/ holding parameters started
#Hyperlipidemia
-Continue statin
#Generalized Anxiety
-Continue Paxil
#Breast cancer in remission
DVT Prophylaxis: SCD
CODE STATUS: Full Code
Discussed with patient, patient's sister Zenia, pt's significant other Pool
I spent a total of 50 minutes with the patient or on the floor. More than 50% of this time involved counseling and coordination of care.
Anticipated Discharge: 24 - 48 hours
Subjective/Interval History
-
Date of Service: February 04, 2025
No acute distress, sitting up comfortably in bed, reports feeling well following EGD. Tolerating clear liquid diet. Denies lightheadedness or dizziness.
Objective Data
-
Labs:
Laboratory Results
02/03/25 02/04/25 02/04/25
19:45 03:34 03:34
WBC 6.6
Hgb Cancelled Cancelled 7.7 L
Hct Cancelled Cancelled
Plt Count
Sodium
Potassium
Chloride
Carbon Dioxide
BUN
Creatinine
Glucose
Calcium
02/04/25 02/04/25 02/04/25
03:34 07:45 09:30
WBC
Hgb Cancelled Pending
Hct 22.2 L Cancelled Pending
Plt Count 265
Sodium 138
Potassium 4.3
Chloride 109 H
Carbon Dioxide 27
BUN 19 H
Creatinine 0.7
Glucose 89
Calcium 8.9
02/04/25 02/04/25 02/04/25
13:45 15:30 19:45
WBC
Hgb Cancelled Pending Cancelled
Hct Cancelled Pending Cancelled
Plt Count
Sodium
Potassium
Chloride
Carbon Dioxide
BUN
Creatinine
Glucose
Calcium
02/04/25
21:30
WBC
Hgb Pending
Hct Pending
Plt Count
Sodium
Potassium
Chloride
Carbon Dioxide
BUN
Creatinine
Glucose
Calcium
Vital Signs:
Vital Signs
Temp Pulse Resp BP Pulse Ox
98.2 F 94 28 102/60 96
02/04/25 03:00 02/04/25 06:00 02/04/25 06:00 02/04/25 06:00 02/04/25 06:00
I&O
02/03/25 02/04/25 02/05/25
06:59 06:59 06:59
Intake Total 1600 / 1600
Balance 1600 / 1600
[2025-02-04 11:41] LABS: Folate 7.4 ng/ml (2.76-20); Vitamin B12 894 pg/ml (239-931)
[2025-02-04] MEDS: PAXIL 20 MG PO (12:04)
[2025-02-04 12:07] LABS: Hematocrit 22.3 % (37.0-47.0); Hemoglobin 7.7 g/dL (12.0-16.0)
--- NOTE | 2025-02-04 12:24 | CM ---
Following up on Patient. Patient was just hospitalized less than a week ago. Today, Hospitalist Notes states that patient admitted for Abdominal pain and dark stool, recieved 2 units of blood, and will go for EDG. PLAN: Anticipate Home No Needs
again.
[2025-02-04] MEDS: NSS 500 IV (13:55)
--- NOTE | 2025-02-04 14:17 | PTCARENOTE ---
Assumed care of patient this morning. She went to GI lab and had EGD. Pt returned and had some soft BP's. Pt ordered NS 500 mls bolus, see MAR. Pt tolerating clear liquids. Pt also found to have R forearm infiltrate this morning, apply heat per VAT.
Pt's protonix gtt continued and infusing. Assessment, care and VS as charted. Sister at bedside throughout shift and updated.
[2025-02-04] MEDS: ROBITUSSIN 200 MG PO (15:04)
--- NOTE | 2025-02-04 16:30 | PTCARENOTE ---
Pt's blood pressure still soft following bolus. TT to , orders for Midodrine and 1 unit of PRBCs.
--- NOTE | 2025-02-04 16:34 | VATNOTE ---
Upon morning rounds, pt's R MAB site noted to be infiltrated. Pt was receiving protonix IV. Iv was removed and heat applied. Pt assessed later in the day and per pt, pain has subsided, but area is still raised and warm. Palpable chord noted about 2
in in length. Recommended to continue with heat, but can alternate with ice. Will continue to monitor.
[2025-02-04] MEDS: CARAFATE 1 GRAM PO ×2 (17:15→20:30)
[2025-02-04] MEDS: TYLENOL 1000 MG PO (18:12)
[2025-02-04] MEDS: LIPITOR 10 MG PO (18:12)
[2025-02-04] MEDS: MUCINEX PO (20:26)
[2025-02-04] MEDS: NEURONTIN 300 MG PO (20:30)
--- NOTE | 2025-02-04 21:00 | PTCARENOTE ---
Assumed care of patient from liane RN. Pt aaox3, denies pain. NSR on monitor, hr 70-80s. SpO2 98% on RA. Protonix gtt infusing at 10 mL/hr. 1u PRBC finished infusing and next H&H at 2200. Pt resting in bed with call jones in reach.
[2025-02-04 22:49] LABS: Hematocrit 23.6 % (37.0-47.0); Hemoglobin 8.0 g/dL (12.0-16.0)
[2025-02-05] VITALS (27 sets, daily range): BP systolic 93–139; BP diastolic 52–85; BMI 21.4
[2025-02-05 05:44] LABS: Hematocrit 25.9 % (37.0-47.0); Hemoglobin 8.5 g/dL (12.0-16.0); Mean Corp Hgb Conc. 32.8 g/dL (33.0-37.0); Mean Corpuscular Volume 90.2 fL (81.0-99.0); Platelet Count 269 10^3/uL (130-400); Red Cell Dist. Width 17.4 % (11.5-14.5)
[2025-02-05 06:01] LABS: Blood Urea Nitrogen 10 mg/dl (7-17); Calcium 8.7 mg/dl (8.4-10.2); Carbon Dioxide 27 mmol/L (22-30); Chloride 111 mmol/L (98-107); Estimated Creatinine Clearance 65 ml/min; Glucose 90 mg/dl (70-99); Iron 94 ug/dl (37-170); Potassium 4.9 mmol/L (3.5-5.1); Sodium 139 mmol/L (135-145); eGFR > 60.00
[2025-02-05 06:11] LABS: Total Iron Binding Capacity 292 ug/dl (265-497)
[2025-02-05 06:36] LABS: Ferritin 80.1 ng/ml (11.1-264.0)
[2025-02-05] MEDS: CARAFATE 1 GRAM PO ×4 (07:25→21:41)
[2025-02-05] MEDS: MUCINEX 600 MG PO ×2 (07:25→21:40)
[2025-02-05] MEDS: PROTONIX 100 IV ×2 (07:26→17:47)
[2025-02-05] MEDS: PAXIL 20 MG PO (07:26)
--- NOTE | 2025-02-05 07:48 | W.PN.HOSP.TC ---
Today's Communication/Plan
-
cont protonix gtt and diet as per GI
monitor H&H w/ daily labs
ok to ambulate as tolerated
Assessment / Plan
Assessment / Plan
Physical Exam
General: Not in acute distress, appears comfortable at this time, Pallor much improved/resolved
HEENT: Normocephalic, Moist mucous membranes and Atraumatic
Respiratory: Clear to Auscultation Bilaterally
Cardiac: S1/S2 and Regular Rhythm
GI: Soft, Non Tender, Non Distended and Normal Bowel Sounds
Musculoskeletal: No Cyanosis and No Edema
Skin: Warm. Dry.
Neuro: AAO x 3 conversant coherent
Psych: Calm
Assessment/Plan
65F HTN, HLD, anxiety, breast cancer p/w sudden onset severe abdominal cramps followed by single episode of diarrhea that was described as black and purplish, red in color. The episode occurred shortly after midnight on 02/02/25. she was feeling
lightheaded, dizzy and weak since then, as well as headache. she felt palpitation. Patient denied fever, chills, chest pain or shortness of breath. Patient denied any urinary tract infection symptoms. The patient was recently discharged about three
days prior to presentation, following hospitalization for GIB. She had undergone treatment for duodenal ulcers, including endoscopic cauterization of one bleeding ulcer and non-bleeding duodenal ulcers. Upon discharge, her hemoglobin was noted to be
at 11 g/dL. Re-admission Hgb 5.4. Patient was started on Protonix drip, and 2 units of red blood cells were transfused with appropriate response noted
#Recent (early January 2025) Acute on chronic blood loss anemia secondary to upper GI bleed with bleeding duodenal ulcer status post EGD bleeding duodenal ulcer (s/p epinephrine for hemostasis
coagulation) noted along with nonbleeding duodenal ulcers
#Recurrent Symptomatic Gastrointestinal bleeding with melena this admission
#Presentation with lightheadedness, fatigue, palpitations abdominal cramps, diarrhea and melena this admission
- Patient had 2 EGDs last admission, second one was done to make sure no further bleeding after a Hgb drop during that hospitalization
- Hypotensive, tachycardic, near syncope secondary to GI bleed -- improved after PRBC transfusions
- monitor H&H and transfuse as necessary for goal Hgb>7.5
- Received 3 units of PRBCs this admission
- Continue IV Protonix drip
- GI consult appreciated -- EGD 02/04/25 noted oozing/re-bleeding duodenal ulcer cauterized, Clear liquid diet, cont Protonix gtt
-Carafate ACHS
#Alcohol use disorder
-Last drink was about 11 days prior to admission
-Counseled abstinence from further ETOH use at this time
#Chronic cough (as reported last admission earlier in January 2025)
#Former smoker, [id number] smoking history
-Per last admission progress note: it was likely from bronchitis, or COPD
-Albuterol nebulizations as needed
-mucinex, prn Robitussin prn Tessalon
#Hypertension
#Hypotension asymptomatic
-cont hold home Valsartan
-briefly started on low dose midodrine, since discontinued with improvement in BP
#Hyperlipidemia
-Continue statin
#Generalized Anxiety
-Continue Paxil
#Breast cancer in remission
DVT Prophylaxis: SCD
CODE STATUS: Full Code
Discussed with patient and patient's sister Zenia
I spent a total of 45 minutes with the patient or on the floor. More than 50% of this time involved counseling and coordination of care.
Anticipated Discharge: 24 - 48 hours
Subjective/Interval History
-
Date of Service: February 05, 2025
No acute distress, sitting up comfortably in bed, color much approved. BP stable. Overall patient reports feeling well.
Objective Data
-
Labs:
Laboratory Results
02/04/25 02/05/25
22:44 05:05
WBC 5.6
Hgb 8.0 L 8.5 L
Hct 23.6 L 25.9 L
Plt Count 269
Sodium 139
Potassium 4.9
Chloride 111 H
Carbon Dioxide 27
BUN 10
Creatinine 0.7
Glucose 90
Calcium 8.7
Vital Signs:
Vital Signs
Temp Pulse Resp BP Pulse Ox
97.9 F 79 21 116/59 98
02/05/25 02:59 02/05/25 07:26 02/05/25 07:25 02/05/25 07:26 02/04/25 20:55
I&O
02/04/25 02/05/25 02/06/25
06:59 06:59 06:59
Intake Total 1390 / 1390
Balance 1390 / 1390
--- NOTE | 2025-02-05 09:20 | PTCARENOTE ---
Patient is denying pain when asked, ate 100% of clear liquid breakfast. Had a large dark brown/ black formed stool in bedside commode. Patient denied dizziness with activity this morning. HGB 8.5, discussed plan of care with patient. Blood pressure
112/66.
--- NOTE | 2025-02-05 11:28 | PN.CDI ---
CDI
- -
CDI:
Physician Documentation Request
Admit Date: 02/02/25 13:11
Dear Doctor Luis,
Patient admitted with melena.
02/04 Endoscopy Procedure, 'Diagnosis Code(s):Chronic or unspecified duodenal ulcer with hemorrhage..'
Please clarify which of the following accurately represents the acuity of the duodenal ulcer:
Acute
Acute on chronic
Chronic
Use of terms such as suspected, likely, concern for, or probable (associated with a specific diagnosis that is being evaluated, monitored, or treated as if it exists) are acceptable and can be coded in the inpatient setting, when documented at the
time of discharge.
Thank you,
Sudha ENRIQUEZ,RN,CCDS
CDI Specialist
Available via [place] text
Please use your independent medical judgment in providing your response.
--- NOTE | 2025-02-05 12:03 | PN.CDI ---
CDI
- -
CDI:
Physician Documentation Request
Admit Date: 02/02/25 13:11
Dear Doctor Luis,
Patient admitted with melena.
02/04 Endoscopy Procedure, 'Diagnosis Code(s):Gastritis, unspecified, without bleeding'
Please clarify which of the following accurately represents the acuity of the gastritis:
Acute
Acute on chronic
Chronic
Use of terms such as suspected, likely, concern for, or probable (associated with a specific diagnosis that is being evaluated, monitored, or treated as if it exists) are acceptable and can be coded in the inpatient setting, when documented at the
time of discharge.
Thank you,
Sudha ENRIQUEZ,RN,CCDS
CDI Specialist
Available via [place] text
Please use your independent medical judgment in providing your response.
--- NOTE | 2025-02-05 14:52 | W.PN.GI.CBS2 ---
Addendum entered and electronically signed by Lavinia Huntley MD 02/05/25 17:02:
I saw and examined the patient.
The SIEB[employer] DEVELOPER or PA's note was reviewed and I agree with the note.
Comment: Patient without any abdominal pain, nausea or vomiting. Had couple of bowel movements which are coming more greenish. No dizziness or shortness of breath.
Hemoglobin trending up and BUN trending down.
Currently on clear liquid diet, will advance as tolerated tomorrow if no further bleeding to full liquid diet.
Continue pantoprazole drip for now add sucralfate AC-HS
Monitor H&H
Will follow
Original Note:
Today's Communication / Plan
-
Continue pantoprazole drip
Clear liquids, no red
CBC in a.m.
Assessment / Plan
-
65-year-old female with past medical history of hypertension, dyslipidemia, breast cancer s/p mastectomy, alcohol abuse, reflux, prior history of peptic ulcer disease who was recently admitted to the hospital with upper GI bleeding and underwent EGD
x 2 -details above admitted again with abdominal pain/dizziness/dark stool
EGD 02/04/2025:
- Small hiatal hernia.
- Non-obstructing Schatzki ring.
- Gastritis, characterized by erythema.
- Blood in the duodenal bulb.
- Oozing duodenal ulcer. Treated with bipolar cautery.
- Normal second portion of the duodenum.
- No specimens collected.
--Dark stool/upper GI bleeding/recent admission with bleeding duodenal ulcer s/p EGD with hemostasis 01/24. Repeat EGD 01/28 -no active bleeding. stomach bx- negative for h.pylori
-- Acute on chronic anemia. s/p 3 units PRBC
--hx of PUD -> repeat EGD performed 02/04/2025, DU treated with bipolar cautery
-- History of alcohol abuse. liver test normal 02/02
Plan:
- Continue pantoprazole drip
- Continue clear liquid diet, no red
- CBC and BMP in a.m.
- Will consider increasing diet tomorrow as long as hemoglobin remained stable and no further signs of bleeding
Subjective
Subjective
Date of Service: February 05, 2025
Patient status post EGD 02/04/2025: Small hiatal hernia, nonobstructing Schatzki's ring, gastritis characterized by erythema, blood in duodenal bulb. Oozing duodenal ulcer treated with bipolar cautery. Normal second portion of duodenum. No
specimens collected. Patient continues on pantoprazole drip and clear liquid diet. She was having red liquids. We will change this to no reds. Hemoglobin improved was 8.0 now up to 8.5. Did have dark bowel movement mixed with brown overnight
and this morning. Decreased in quantity. No abdominal discomfort. Her 'shakiness is improving'.
Objective
Data Reviewed
Laboratory Data:
Laboratory Results
02/05/25 05:05
02/05/25 05:05
Laboratory Results
PT 13.2 Sec (11.4-14.6) 02/02/25 12:01
INR 0.97 02/02/25 12:01
Phosphorus 3.3 mg/dl (2.5-4.5) 02/04/25 03:34
Magnesium 2.0 mg/dl (1.6-2.3) 02/04/25 03:34
Total Bilirubin 0.2 mg/dl (0.2-1.3) 02/02/25 12:01
AST 29 U/L (14-36) 02/02/25 12:01
ALT 20 U/L (0-35) 02/02/25 12:01
Alkaline Phosphatase 72 U/L (38-126) 02/02/25 12:01
Vital Signs and I&O:
Vital Signs
Temp Pulse Resp BP Pulse Ox
98.2 F 102 13 139/75 98
02/05/25 11:14 02/05/25 14:09 02/05/25 14:09 02/05/25 14:09 02/05/25 12:00
I&O
02/04/25 02/05/25 02/06/25
06:59 06:59 06:59
Intake Total 1390 / 1390 300 / 300
Balance 1390 / 1390 300 / 300
Physical Exam
Physical Exam
HEENT: Anicteric
Cardiology: Normal Sinus Rhythm
Pulmonary: Clear
GI: Soft, Non Distended, Non Tender and Normal Bowel Sounds
Extremities: No Edema
Neuro: Non Focal
[2025-02-05] MEDS: LIPITOR 10 MG PO (17:39)
[2025-02-05] MEDS: NEURONTIN 300 MG PO (21:41)
--- NOTE | 2025-02-05 23:28 | PTCARENOTE ---
Assumed care of patient from liane RN. Pt aaox3. NSR on monitor. SpO2 96% on RA. Protonix gtt infusing at 10 mL/hr. Pt resting in bed with call jones in reach.
[2025-02-06] VITALS (29 sets, daily range): BP systolic 72–127; BP diastolic 47–80; BMI 21.1
[2025-02-06] MEDS: PROTONIX 100 IV (02:53)
[2025-02-06 03:48] LABS: Hematocrit 26.6 % (37.0-47.0); Hemoglobin 8.5 g/dL (12.0-16.0); Mean Corp Hgb Conc. 32.0 g/dL (33.0-37.0); Mean Corpuscular Volume 94.7 fL (81.0-99.0); Platelet Count 296 10^3/uL (130-400); Red Cell Dist. Width 17.8 % (11.5-14.5)
[2025-02-06 04:09] LABS: Blood Urea Nitrogen 3 mg/dl (7-17); Calcium 8.9 mg/dl (8.4-10.2); Carbon Dioxide 26 mmol/L (22-30); Chloride 110 mmol/L (98-107); Estimated Creatinine Clearance 56 ml/min; Glucose 92 mg/dl (70-99); Magnesium 1.8 mg/dl (1.6-2.3); Potassium 4.1 mmol/L (3.5-5.1); Sodium 140 mmol/L (135-145); eGFR > 60.00
--- NOTE | 2025-02-06 07:33 | W.PN.UPDATE ---
Update Note
Progress Note Update
Coding purpose
-- acute gastritis
- acute duodenal ulcer with hemorrhage
[2025-02-06] MEDS: CARAFATE 1 GRAM PO ×3 (07:54→19:40)
[2025-02-06] MEDS: TYLENOL 650 MG PO ×2 (07:54→19:40)
[2025-02-06] MEDS: MUCINEX 600 MG PO ×2 (07:54→19:40)
[2025-02-06] MEDS: PAXIL 20 MG PO (07:55)
--- NOTE | 2025-02-06 07:56 | PTCARENOTE ---
Assumed care of patient at beginning of this shift from previous RN; cannot verify accuracy of vital signs prior to 0700.
--- NOTE | 2025-02-06 08:59 | W.PN.HOSP.TC ---
Today's Communication/Plan
-
diet as per GI
monitor H&H, goal Hgb>8
check manual pressure if BP reading abnormal, consider bolus as necessary
possible discharge tomorrow if remains stable and H&H trends upward
Assessment / Plan
Assessment / Plan
Physical Exam
General: Not in acute distress, appears comfortable at this time, Pallor much improved/resolved
HEENT: Normocephalic, Moist mucous membranes and Atraumatic
Respiratory: Clear to Auscultation Bilaterally
Cardiac: S1/S2 and Regular Rhythm
GI: Soft, Non Tender, Non Distended and Normal Bowel Sounds
Musculoskeletal: No Cyanosis and No Edema
Skin: Warm. Dry.
Neuro: AAO x 3 conversant coherent
Psych: Calm
Assessment/Plan
65F HTN, HLD, anxiety, breast cancer p/w sudden onset severe abdominal cramps followed by single episode of diarrhea that was described as black and purplish, red in color. The episode occurred shortly after midnight on 02/02/25. she was feeling
lightheaded, dizzy and weak since then, as well as headache. she felt palpitation. Patient denied fever, chills, chest pain or shortness of breath. Patient denied any urinary tract infection symptoms. The patient was recently discharged about three
days prior to presentation, following hospitalization for GIB. She had undergone treatment for duodenal ulcers, including endoscopic cauterization of one bleeding ulcer and non-bleeding duodenal ulcers. Upon discharge, her hemoglobin was noted to be
at 11 g/dL. Re-admission Hgb 5.4. Patient was started on Protonix drip, and 2 units of red blood cells were transfused with appropriate response noted
#Recent (early January 2025) Acute on chronic blood loss anemia secondary to upper GI bleed with bleeding duodenal ulcer status post EGD bleeding duodenal ulcer (s/p epinephrine for hemostasis
coagulation) noted along with nonbleeding duodenal ulcers
#Recurrent Symptomatic Gastrointestinal bleeding with melena this admission
#Presentation with lightheadedness, fatigue, palpitations abdominal cramps, diarrhea and melena this admission
- Patient had 2 EGDs last admission, second one was done to make sure no further bleeding after a Hgb drop during that hospitalization
- Hypotensive, tachycardic, near syncope secondary to GI bleed -- improved after PRBC transfusions
- monitor H&H and transfuse as necessary for goal Hgb>7.5
- Received 3 units of PRBCs this admission
- GI consult appreciated -- EGD 02/04/25 noted oozing/re-bleeding duodenal ulcer cauterized
- protonix gtt transitioned to PPI BID 02/06
- diet advance as per GI
- Carafate ACHS reduced to BID
#Alcohol use disorder
-Last drink was about 11 days prior to admission
-Counseled abstinence from further ETOH use at this time
#Chronic cough (as reported last admission earlier in January 2025)
#Former smoker, [id number] smoking history
-Per last admission progress note: it was likely from bronchitis, or COPD
-Albuterol nebulizations as needed
-mucinex, prn Robitussin prn Tessalon
#Hypertension
#Hypotension asymptomatic
-cont hold home Valsartan
-briefly started on low dose midodrine, since discontinued with improvement in BP
-some drops in pressure overnight noted, unclear if real, check manual pressure if reading abnormal
#Hyperlipidemia
-Continue statin
#Generalized Anxiety
-Continue Paxil
#Breast cancer in remission
DVT Prophylaxis: SCD
CODE STATUS: Full Code
I spent a total of 45 minutes with the patient or on the floor. More than 50% of this time involved counseling and coordination of care.
Anticipated Discharge: Within 24 hours
Subjective/Interval History
-
Date of Service: February 06, 2025
No acute distress, appears well, reports improvement in diarrhea. Denies new acute issues.
Objective Data
-
Labs:
Laboratory Results
02/06/25
03:33
WBC 6.0
Hgb 8.5 L
Hct 26.6 L
Plt Count 296
Sodium 140
Potassium 4.1
Chloride 110 H
Carbon Dioxide 26
BUN 3 L
Creatinine 0.8
Glucose 92
Calcium 8.9
Vital Signs:
Vital Signs
Temp Pulse Resp BP Pulse Ox
98.1 F 74 14 103/57 91
02/06/25 03:40 02/06/25 07:00 02/06/25 07:00 02/06/25 07:00 02/06/25 07:00
I&O
02/05/25 02/06/25 02/07/25
06:59 06:59 06:59
Intake Total 1390 / 1390 420 / 420
Balance 1390 / 1390 420 / 420
--- NOTE | 2025-02-06 10:40 | VATNOTE ---
During routine rounds, IV appeared infiltrated. IV discontinued and heat applied. Pt with L arm restriction, discussed with pt option for Midline in depth and with sister via telephone. Pt verbalizes understanding and agrees to midline placement.
--- NOTE | 2025-02-06 11:18 | PTCARENOTE ---
Patient tolerated clear liquid breakfast. OOB to commode x1 assist; did c/o lightheadedness when initially getting up, but that passed quickly. Protonix infusion with infiltrate to R arm; VAT RN placed midline. VAT RN Kerline stated calf BP is
preferable but may use R f/a if needed. Patient aware to keep leg straight when BP is running. See worklist for full assessment and vital signs.
--- NOTE | 2025-02-06 15:23 | CM ---
F/U: RN stated that patient is off IV protonix,. now on P.O and tolerating a regular diet. Thus far, no discharge needs at this time. PLAN: Home No Needs
--- NOTE | 2025-02-06 15:39 | PTCARENOTE ---
Patient tolerated low residue lunch. Protonix infusion d/c'd as per order from Dr Huntley; patient to start po tonight.
[2025-02-06 17:51] LABS: Hematocrit 24.9 % (37.0-47.0); Hemoglobin 8.2 g/dL (12.0-16.0)
[2025-02-06] MEDS: LIPITOR 10 MG PO (17:53)
--- NOTE | 2025-02-06 19:01 | W.PN.GI.CBS2 ---
Today's Communication / Plan
-
Plan:
Okay to advance to full liquid diet, switch pantoprazole to 40 mg p.o. twice daily
Hemoglobin stable without any evidence of active GI bleeding, BUN trending down as well.
- Will consider increasing diet tomorrow to low residue diet
Can cut back on the Carafate to 1 g twice a day, reviewed with patient that this should be spaced out from other medications for at least 2 hours before and after and this can also cause constipation.
Follow-up with as an outpatient for recurrent nonhealing duodenal ulcer.
Assessment / Plan
-
65-year-old female with past medical history of hypertension, dyslipidemia, breast cancer s/p mastectomy, alcohol abuse, reflux, prior history of peptic ulcer disease who was recently admitted to the hospital with upper GI bleeding and underwent EGD
x 2 -details above admitted again with abdominal pain/dizziness/dark stool
EGD 02/04/2025:
- Small hiatal hernia.
- Non-obstructing Schatzki ring.
- Gastritis, characterized by erythema.
- Blood in the duodenal bulb.
- Oozing duodenal ulcer. Treated with bipolar cautery.
- Normal second portion of the duodenum.
- No specimens collected.
--Dark stool/upper GI bleeding/recent admission with bleeding duodenal ulcer s/p EGD with hemostasis 01/24. Repeat EGD 01/28 -no active bleeding. stomach bx- negative for h.pylori
-- Acute on chronic anemia. s/p 3 units PRBC
--hx of PUD -> repeat EGD performed 02/04/2025, DU treated with bipolar cautery
-- History of alcohol abuse. liver test normal 02/02
Plan:
Okay to advance to full liquid diet, switch pantoprazole to 40 mg p.o. twice daily
Hemoglobin stable without any evidence of active GI bleeding, BUN trending down as well.
- Will consider increasing diet tomorrow to low residue diet
Can cut back on the Carafate to 1 g twice a day, reviewed with patient that this should be spaced out from other medications for at least 2 hours before and after and this can also cause constipation.
Follow-up with as an outpatient for recurrent nonhealing duodenal ulcer.
Subjective
Subjective
Date of Service: February 06, 2025
Patient without any abdominal pain, nausea or vomiting. Brown bowel movement today. Tolerating clear liquids.
Objective
Data Reviewed
Laboratory Data:
Laboratory Results
02/06/25 17:32
02/06/25 03:33
Laboratory Results
PT 13.2 Sec (11.4-14.6) 02/02/25 12:01
INR 0.97 02/02/25 12:01
Phosphorus 3.7 mg/dl (2.5-4.5) 02/06/25 03:33
Magnesium 1.8 mg/dl (1.6-2.3) 02/06/25 03:33
Total Bilirubin 0.2 mg/dl (0.2-1.3) 02/02/25 12:01
AST 29 U/L (14-36) 02/02/25 12:01
ALT 20 U/L (0-35) 02/02/25 12:01
Alkaline Phosphatase 72 U/L (38-126) 02/02/25 12:01
Vital Signs and I&O:
Vital Signs
Temp Pulse Resp BP Pulse Ox
98.3 F 87 18 114/70 97
02/06/25 15:15 02/06/25 18:00 02/06/25 18:00 02/06/25 18:00 02/06/25 18:00
I&O
02/05/25 02/06/25 02/07/25
06:59 06:59 06:59
Intake Total 1390 / 1390 420 / 420
Balance 1390 / 1390 420 / 420
Physical Exam
Physical Exam
GI: Soft, Non Distended and Non Tender
[2025-02-06] MEDS: PROTONIX 40 MG PO (19:40)
[2025-02-06] MEDS: NEURONTIN 300 MG PO (21:44)
[2025-02-07] VITALS (15 sets, daily range): BP systolic 85–128; BP diastolic 54–79; PULSE 99
--- NOTE | 2025-02-07 03:48 | PTCARENOTE ---
Assumed care of patient from liane RN. Pt aaox3. NSR on monitor. SpO2 97% on RA. Patient c/o of a headache which she stated was a 5/10, aching pain. PRN Tylenol given with DANIEL meds (see JUN). Pt resting in bed asleep with call joens in reach.
[2025-02-07 06:08] LABS: Hematocrit 26.3 % (37.0-47.0); Hemoglobin 8.2 g/dL (12.0-16.0)
[2025-02-07] MEDS: PAXIL 20 MG PO (07:43)
[2025-02-07] MEDS: MUCINEX 600 MG PO ×2 (07:43→20:31)
[2025-02-07] MEDS: PROTONIX 40 MG PO ×2 (07:43→20:31)
[2025-02-07] MEDS: CARAFATE 1 GRAM PO ×2 (07:43→20:31)
--- NOTE | 2025-02-07 08:03 | W.PN.HOSP.TC ---
Today's Communication/Plan
-
Stable for downgrade to med/surg
cont monitoring H&H w/ daily labs
Assessment / Plan
Assessment / Plan
Physical Exam
General: Not in acute distress, appears comfortable at this time, Pallor much improved/resolved
HEENT: Normocephalic, Moist mucous membranes and Atraumatic
Respiratory: Clear to Auscultation Bilaterally
Cardiac: S1/S2 and Regular Rhythm
GI: Soft, Non Tender, Non Distended and Normal Bowel Sounds
Musculoskeletal: No Cyanosis and No Edema
Skin: Warm. Dry.
Neuro: AAO x 3 conversant coherent
Psych: Calm
Assessment/Plan
65F HTN, HLD, anxiety, breast cancer p/w sudden onset severe abdominal cramps followed by single episode of diarrhea that was described as black and purplish, red in color. The episode occurred shortly after midnight on 02/02/25. she was feeling
lightheaded, dizzy and weak since then, as well as headache. she felt palpitation. Patient denied fever, chills, chest pain or shortness of breath. Patient denied any urinary tract infection symptoms. The patient was recently discharged about three
days prior to presentation, following hospitalization for GIB. She had undergone treatment for duodenal ulcers, including endoscopic cauterization of one bleeding ulcer and non-bleeding duodenal ulcers. Upon discharge, her hemoglobin was noted to be
at 11 g/dL. Re-admission Hgb 5.4. Patient was started on Protonix drip, and 2 units of red blood cells were transfused with appropriate response noted
#Recent (early January 2025) Acute on chronic blood loss anemia secondary to upper GI bleed with bleeding duodenal ulcer status post EGD bleeding duodenal ulcer (s/p epinephrine for hemostasis
coagulation) noted along with nonbleeding duodenal ulcers
#Recurrent Symptomatic Gastrointestinal bleeding with melena this admission
#Presentation with lightheadedness, fatigue, palpitations abdominal cramps, diarrhea and melena this admission
- Patient had 2 EGDs last admission, second one was done to make sure no further bleeding after a Hgb drop during that hospitalization
- Hypotensive, tachycardic, near syncope secondary to GI bleed -- improved after PRBC transfusions
- monitor H&H and transfuse as necessary for goal Hgb>7.5
- Received 3 units of PRBCs this admission
- GI consult appreciated -- EGD 02/04/25 noted oozing/re-bleeding duodenal ulcer cauterized
- protonix gtt transitioned to PPI BID 02/06
- diet advance as per GI
- Carafate ACHS reduced to BID
#Alcohol use disorder
-Last drink was about 11 days prior to admission
-Counseled abstinence from further ETOH use at this time
#Chronic cough (as reported last admission earlier in January 2025)
#Former smoker, [id number] smoking history
-Per last admission progress note: it was likely from bronchitis, or COPD
-Albuterol nebulizations as needed
-mucinex, prn Robitussin prn Tessalon
#Hypertension
#Hypotension asymptomatic
-cont hold home Valsartan
-briefly started on low dose midodrine, since discontinued with improvement in BP
-some drops in pressure overnight noted, unclear if real, check manual pressure if reading abnormal
#Hyperlipidemia
-Continue statin
#Generalized Anxiety
-Continue Paxil
#Breast cancer in remission
PT eval appreciated no needs
DVT Prophylaxis: SCD
CODE STATUS: Full Code
Stable for downgrade to med/surg
I spent a total of 45 minutes with the patient or on the floor. More than 50% of this time involved counseling and coordination of care.
Anticipated Discharge: Within 24 hours
Subjective/Interval History
-
Date of Service: February 07, 2025
No acute distress, overall reports feeling well though reports feeling shaky on ambulation requesting physical therapy evaluation. Otherwise denies new acute issues at this time.
Objective Data
-
Labs:
Laboratory Results
02/07/25
05:46
Hgb 8.2 L
Hct 26.3 L
Vital Signs:
Vital Signs
Temp Pulse Resp BP Pulse Ox
97.8 F 82 11 103/57 95
02/07/25 03:16 02/07/25 07:00 02/07/25 07:00 02/07/25 07:00 02/07/25 03:49
I&O
02/06/25 02/07/25 02/08/25
06:59 06:59 06:59
Intake Total 420 / 420 480 / 480
Balance 420 / 420 480 / 480
[2025-02-07] MEDS: TYLENOL 650 MG PO (10:29)
--- NOTE | 2025-02-07 11:00 | TRANSFER ---
rec'd pt from IMU, pt ambulated from WC to bed with standby assist. VSS. AAOx3, call jones within reach, POC ongoing.
--- NOTE | 2025-02-07 11:23 | PTCARENOTE ---
Assumed care of patient at beginning of this shift from previous RN. Patient tolerated low residue diet yesterday and this morning; reports no bm since yesterday. Patient requested PT as she states there are multiple steps where she lives. Dr Brown
made aware when on unit to see patient. Patient downgraded to m/s, assigned to room 412-2; report given to Eva OCONNOR. She will notify this RN when room available. Patient updated; belongings packed.
[2025-02-07] MEDS: LIPITOR 10 MG PO (16:56)
--- NOTE | 2025-02-07 19:17 | W.PN.GI.CBS2 ---
Today's Communication / Plan
-
Continue pantoprazole to 40 mg p.o. twice daily
Tolerating low residue diet
Hemoglobin stable without any evidence of active GI bleeding
02/16 cut back on the Carafate to 1 g twice a day, reviewed with patient that this should be spaced out from other medications for at least 2 hours before and after and this can also cause constipation.
Follow-up with as an outpatient for recurrent nonhealing duodenal ulcer.
Okay to take Slo [place], can get CBC through PCPs office, if constipated, take Colace
Sent message to office to move her appointment up.
Will sign off, please call back if needed
Assessment / Plan
-
65-year-old female with past medical history of hypertension, dyslipidemia, breast cancer s/p mastectomy, alcohol abuse, reflux, prior history of peptic ulcer disease who was recently admitted to the hospital with upper GI bleeding and underwent EGD
x 2 -details above admitted again with abdominal pain/dizziness/dark stool
EGD 02/04/2025:
- Small hiatal hernia.
- Non-obstructing Schatzki ring.
- Gastritis, characterized by erythema.
- Blood in the duodenal bulb.
- Oozing duodenal ulcer. Treated with bipolar cautery.
- Normal second portion of the duodenum.
- No specimens collected.
--Dark stool/upper GI bleeding/recent admission with bleeding duodenal ulcer s/p EGD with hemostasis 01/24. Repeat EGD 01/28 -no active bleeding. stomach bx- negative for h.pylori
-- Acute on chronic anemia. s/p 3 units PRBC
--hx of PUD -> repeat EGD performed 02/04/2025, DU treated with bipolar cautery
-- History of alcohol abuse. liver test normal 02/02
Plan:
Continue pantoprazole to 40 mg p.o. twice daily
Tolerating low residue diet
Hemoglobin stable without any evidence of active GI bleeding
02/16 cut back on the Carafate to 1 g twice a day, reviewed with patient that this should be spaced out from other medications for at least 2 hours before and after and this can also cause constipation.
Follow-up with as an outpatient for recurrent nonhealing duodenal ulcer.
Okay to take Slo Fe, can get CBC through PCPs office, if constipated, take Colace
Sent message to office to move her appointment up.
Will sign off, please call back if needed
Subjective
Subjective
Date of Service: February 07, 2025
Patient tolerating low residue diet, no further bowel movements today.
Objective
Data Reviewed
Laboratory Data:
Laboratory Results
02/07/25 05:46
02/06/25 03:33
Laboratory Results
PT 13.2 Sec (11.4-14.6) 02/02/25 12:01
INR 0.97 02/02/25 12:01
Phosphorus 3.7 mg/dl (2.5-4.5) 02/06/25 03:33
Magnesium 1.8 mg/dl (1.6-2.3) 02/06/25 03:33
Total Bilirubin 0.2 mg/dl (0.2-1.3) 02/02/25 12:01
AST 29 U/L (14-36) 02/02/25 12:01
ALT 20 U/L (0-35) 02/02/25 12:01
Alkaline Phosphatase 72 U/L (38-126) 02/02/25 12:01
Vital Signs and I&O:
Vital Signs
Temp Pulse Resp BP Pulse Ox
97.9 F 99 18 128/79 100
02/07/25 15:40 02/07/25 15:40 02/07/25 15:40 02/07/25 15:40 02/07/25 15:40
I&O
02/06/25 02/07/25 02/08/25
06:59 06:59 06:59
Intake Total 420 / 420 480 / 480 1440 / 1440
Balance 420 / 420 480 / 480 1440 / 1440
Physical Exam
Physical Exam
GI: Soft, Non Distended and Non Tender
[2025-02-07] MEDS: NEURONTIN 300 MG PO (21:14)
[2025-02-08 04:46] LABS: Hematocrit 25.4 % (37.0-47.0); Hemoglobin 8.3 g/dL (12.0-16.0)
--- NOTE | 2025-02-08 05:24 | PTCARENOTE ---
Pt received CHG care for midline.
[2025-02-08] MEDS: MUCINEX 600 MG PO (07:41)
[2025-02-08] MEDS: CARAFATE 1 GRAM PO (07:41)
[2025-02-08] MEDS: PAXIL 20 MG PO (07:41)
[2025-02-08] MEDS: PROTONIX 40 MG PO (07:41)
[2025-02-08] MEDS: FEOSOL 325 MG PO (07:41)
[2025-02-08 07:52] VITALS: BP 121/85
--- NOTE | 2025-02-08 07:58 | W.PN.HOSP.TC ---
Today's Communication/Plan
-
discharge
Assessment / Plan
Assessment / Plan
Physical Exam
General: Not in acute distress, appears comfortable at this time, Pallor much improved/resolved
HEENT: Normocephalic, Moist mucous membranes and Atraumatic
Respiratory: Clear to Auscultation Bilaterally
Cardiac: S1/S2 and Regular Rhythm
GI: Soft, Non Tender, Non Distended and Normal Bowel Sounds
Musculoskeletal: No Cyanosis and No Edema
Skin: Warm. Dry.
Neuro: AAO x 3 conversant coherent
Psych: Calm
Assessment/Plan
65F HTN, HLD, anxiety, breast cancer p/w sudden onset severe abdominal cramps followed by single episode of diarrhea that was described as black and purplish, red in color. The episode occurred shortly after midnight on 02/02/25. she was feeling
lightheaded, dizzy and weak since then, as well as headache. she felt palpitation. Patient denied fever, chills, chest pain or shortness of breath. Patient denied any urinary tract infection symptoms. The patient was recently discharged about three
days prior to presentation, following hospitalization for GIB. She had undergone treatment for duodenal ulcers, including endoscopic cauterization of one bleeding ulcer and non-bleeding duodenal ulcers. Upon discharge, her hemoglobin was noted to be
at 11 g/dL. Re-admission Hgb 5.4. Patient was started on Protonix drip, and 2 units of red blood cells were transfused with appropriate response noted
#Recent (early January 2025) Acute on chronic blood loss anemia secondary to upper GI bleed with bleeding duodenal ulcer status post EGD bleeding duodenal ulcer (s/p epinephrine for hemostasis
coagulation) noted along with nonbleeding duodenal ulcers
#Recurrent Symptomatic Gastrointestinal bleeding with melena this admission
#Presentation with lightheadedness, fatigue, palpitations abdominal cramps, diarrhea and melena this admission
- Patient had 2 EGDs last admission, second one was done to make sure no further bleeding after a Hgb drop during that hospitalization
- Hypotensive, tachycardic, near syncope secondary to GI bleed -- improved after PRBC transfusions
- monitor H&H and transfuse as necessary for goal Hgb>7.5
- Received 3 units of PRBCs this admission
- GI consult appreciated -- EGD 02/04/25 noted oozing/re-bleeding duodenal ulcer cauterized
- protonix gtt transitioned to PPI BID 02/06
- diet advance as per GI
- Carafate ACHS reduced to BID
- H&H remains stable, trending up
#Alcohol use disorder
-Last drink was about 11 days prior to admission
-Counseled abstinence from further ETOH use at this time
#Chronic cough (as reported last admission earlier in January 2025)
#Former smoker, [id number] smoking history
-Per last admission progress note: it was likely from bronchitis, or COPD
-Albuterol nebulizations as needed
-mucinex, prn Robitussin prn Tessalon
#Hypertension
#Hypotension asymptomatic
-cont hold home Valsartan
-briefly started on low dose midodrine, since discontinued with improvement in BP
-BP consistently within goal
#Hyperlipidemia
-Continue statin
#Generalized Anxiety
-Continue Paxil
#Breast cancer in remission
PT eval appreciated no needs
DVT Prophylaxis: SCD
CODE STATUS: Full Code
Medically stable for discharge home with outpatient follow up recommendations
Total Time Preparing Discharge ___40____ minutes including examination of the patient, summary of the hospital stay, instructions for continuing care to all relevant caregivers; and preparation of discharge records, prescriptions, and referral
forms if necessary.
Anticipated Discharge: Today
Subjective/Interval History
-
Date of Service: February 08, 2025
no acute distress, sitting up comfortably in bed. Denies new acute issues. Eager to go home.
Objective Data
-
Labs:
Laboratory Results
02/08/25
04:18
Hgb 8.3 L
Hct 25.4 L
Vital Signs:
Vital Signs
Temp Pulse Resp BP Pulse Ox
98.1 F 86 16 121/85 98
02/08/25 07:52 02/08/25 07:52 02/08/25 07:52 02/08/25 07:52 02/08/25 07:52
I&O
02/07/25 02/08/25 02/09/25
06:59 06:59 06:59
Intake Total 480 / 480 1680 / 1680
Balance 480 / 480 1680 / 1680
[2025-02-08] MEDS: TYLENOL 650 MG PO (09:07)
--- NOTE | 2025-02-08 10:09 | VATNOTE ---
Patient with reported previous infiltrate to right forearm; patient notes area mildly tender to touch, but states area is much improved. Patient also reports using intermittent warm compresses to the site. Scant swelling noted, no drainage.
--- NOTE | 2025-02-08 12:22 | W.DCSUMMARY ---
Discharge Summary
Discharge Data
Date of Admission: 02/02/25
Date of Discharge: 02/08/25
-
Pending Results: No
Discharge Plan
-
Patient Disposition: Home (Routine Discharge)
Discharge Diagnosis/Procedures: Acute on Chronic Anemia secondary to upper GI bleed duodenal ulcer
Condition: Fair
Diet: Low Fiber
Additional Diets: Low residue diet for one week then ok to advance as tolerated.
Activity: As tolerated
Driving Restrictions: As prior to admission
Bathing Restrictions: None
Blood Work: Repeat CBC Tuesday02/11/25 results to be forwarded to your primary care provider and GI doctor- script provided to facilitate.
Activity Restrictions/Additional Instructions:
Mucinex prescribed for cough as needed. This medication is available over the counter
Carafate has been prescribed for duodenal ulcer treatment. Follow up with GI doctor to determine when ok to stop.
Valsartan discontinued due to low pressures since resolved. Blood pressure has been consistently at goal without Valsartan. Please follow up with primary care provider and/or other healthcare provider involved in your care before considering to
resume.
Keep daily log of your blood pressures at home to review with your primary care provider in follow up.
Please take medications as prescribed/recommended and follow up with primary care provider and/or other healthcare provider involved in your care for refills and/or further adjustment to your medication regimen as necessary.
Referrals:
Vaishali Peoples MD [Active, Gastroenterology]
Referral Note: follow up 4-6 week with recent GI bleeding
Josue Zhu DO [Family Provider] - in one week
Prescriptions:
New
sucralfate 1 gram Tablet
1 g PO BID Qty: 60 0RF
guaifenesin 600 mg Tablet Extended Release 12hr
600 mg PO Q12 PRN (Reason: Cough) Qty: 14 0RF
Continued
paroxetine HCl 20 mg tablet
20 mg PO DAILY
simvastatin 20 mg tablet
20 mg PO QPM
gabapentin 300 mg capsule
300 mg PO HS
melatonin 2.5 mg Tablet,Chewable
2.5 mg PO HSPRN PRN (Reason: sleep)
acetaminophen [Tylenol] 325 mg Tablet
650 mg PO Q6HPRN PRN (Reason: mild pain)
pantoprazole 40 mg tablet,delayed release (DR/EC)
40 mg PO BID 56 Days Qty: 112 0RF
calcium carbonate [Tums] 200 mg calcium (500 mg) Tablet,Chewable
200 mg PO BIDPRN PRN (Reason: gerd)
vitamin B complex Tablet
1 tab PO DAILY
Discontinued
valsartan 160 mg Tablet
160 mg PO DAILY
Discharge Orders:
Discharge Patient (As Directed); Ordered 02/08/25
Ordered By: Arik Brown
Discharge Date and Time
Print Language: THAI
--- NOTE | 2025-02-08 12:58 | CM ---
Chart reviewed. Patient will d/c home today
Met w/ patient, agreeable to d/c. IMM verbally reviewed, copy provided, copy on chart
Daughter will transport home
No CM needs at this time
Plan: Home, no needs
== END 2025-02-08 14:03 | disposition home or self-care (01) | DRG 378 ==
LOC: 4 EAST ACU 13:11
PROVIDERS: Hospitalist; Nurse Practitioner; Registered Nurse; ADMITTING PHYSICIAN Internal Medicine; ATTENDING PHYSICIAN Internal Medicine; CONSULT PHYSICIAN Internal Medicine Gastroenterology; EMERGENCY PHYSICIAN Emergency Medicine; FAMILY PHYSICIAN Family Medicine
PROC: 30233N1 Transfusion of Nonautologous Red Blood Cells into Peripheral Vein, Percutaneous Approach (ICD-10-PCS; 2025-02-02)
PROC: 0D598ZZ Destruction of Duodenum, Via Natural or Artificial Opening Endoscopic (ICD-10-PCS; 2025-02-04)
DX: K26.0 Acute duodenal ulcer with hemorrhage (principal); D62 Acute posthemorrhagic anemia; E78.00 Pure hypercholesterolemia, unspecified; I10 Essential (primary) hypertension; K21.9 Gastro-esophageal reflux disease without esophagitis; F41.1 Generalized anxiety disorder; R51.9 Headache, unspecified; F10.10 Alcohol abuse, uncomplicated; R05.3 Chronic cough; K22.2 Esophageal obstruction; K44.9 Diaphragmatic hernia without obstruction or gangrene; K57.30 Diverticulosis of large intestine without perforation or abscess without bleeding; I95.9 Hypotension, unspecified; K29.00 Acute gastritis without bleeding; Z60.2 Problems related to living alone; Z87.11 Personal history of peptic ulcer disease; Z85.3 Personal history of malignant neoplasm of breast; Z87.891 Personal history of nicotine dependence
CPT/HCPCS: 80048; 80053; 82607; 82728; 82746; 83540; 83550; 83735; 84100; 85014; 85018; 85025; 85027; 85610; 86850; 86900; 86901; 86920; 96361; 96374; 97162; 99291; P9016

== ENCOUNTER 2025-02-13 12:59 | Day surgery (SDC) | payer MEDICARE, SELFPAY ==
[2025-02-13] VITALS (9 sets, daily range): BP systolic 121–140; BP diastolic 71–92; BMI 22.2
[2025-02-13 07:53] LABS: Hematocrit 29.5 % (37.0-47.0); Hemoglobin 9.2 g/dL (12.0-16.0); Mean Corp Hgb Conc. 31.2 g/dL (33.0-37.0); Mean Corpuscular Volume 94.6 fL (81.0-99.0); Nucleated Red Blood Cells % 0 %; Platelet Count 537 10^3/uL (130-400); Red Cell Dist. Width 17.1 % (11.5-14.5)
[2025-02-13 08:00] LABS: INR 0.89; PT 12.5 Sec (11.4-14.6)
[2025-02-13 08:01] LABS: APTT 24.8 Sec (23.4-35.0)
[2025-02-13 08:16] LABS: ALT (SGPT) 19 U/L (0-35); AST (SGOT) 34 U/L (14-36); Albumin 4.1 g/dl (3.5-5.0); Alkaline Phosphatase 76 U/L (38-126); Blood Urea Nitrogen 12 mg/dl (7-17); Calcium 10.0 mg/dl (8.4-10.2); Carbon Dioxide 24 mmol/L (22-30); Chloride 105 mmol/L (98-107); Estimated Creatinine Clearance 65 ml/min; Glucose 107 mg/dl (70-99); Lipase 233 U/L (23-300); Potassium 4.3 mmol/L (3.5-5.1); Sodium 137 mmol/L (135-145); Total Protein 6.8 g/dl (6.3-8.2); eGFR > 60.00
[2025-02-13 08:18] LABS: Troponin I < 0.012 ng/ml
--- NOTE | 2025-02-13 08:33 | ED.GENMED ---
History of Present Illness
General
Chief Complaint: Abdominal Pain
Source: patient and records
Exam Limitations: none
Time Seen by Provider: 02/13/25 07:31
Nursing documentation reviewed up to this point in time: agreed with
History of Present Illness
History of Present Illness:
65-year-old female history of gastric ulcer status post recent admission scoped x 3 with transfusion presents with upper abdominal pain after eating some eggs last night lasted about an hour went into her back she had 2 formed brown stools no fevers
no chest pain no nausea or vomiting, feeling better now been compliant with her Carafate and her PPI still has her gallbladder no longer drinking for past few weeks
Past History
Past History
ED Past Medical History: HTN and Hypercholesterolemia
Social History
Employment: Employed
Review of Systems
Review of Systems
All Other Systems: Not applicable
Constitutional: Denies fever or fatigue
Cardiac: Reports no symptoms
ABD/GI: Reports abdominal pain; Denies nausea, vomiting, diarrhea, bloody stools or black stools
: Reports no symptoms
Musculoskeletal: Reports no symptoms
Skin: Reports no symptoms
Phy Exam
Physical Exam
Physical Exam:
Physical Exam
General: no apparent distress, not acutely ill
Neck: No jaundice
Heart: s1/s2 regular rate and rhythm, no murmur. equal radial pulses.
Lungs: no acute respiratory distress. clear bilaterally
Abdomen: Nontender
Neuro: alert and oriented. no focal neurological deficits
Skin: no rash
Psychiatric: well kept. interactive and cooperative
Extremities: no edema. no calf tenderness.
Course
Orders/Labs/Results
Orders:
Orders
02/13/25 07:12
ECG [Electrocardiogram (*1)] Urgent
Reason for Study: Abdominal Pain
EKG- Treatment ONCE
02/13/25 07:22
Cardiac Monitoring- Treatment ONCE
IV Insert/Care/Rem.- Treatment PRN
O2 Therapy [RESP] Urgent
Titrate/Wean O2 to maintain O2 sat greater than (%): 93
Special Instructions: MAINTAIN CONTINOUS O2 SATS > OR = 93%
Pulse Ox/spot Check [RESP] Urgent
Quantity: 1
Special Instructions: ON ROOM AIR
02/13/25 07:34
Type+Screen Urgent
Complete Blood Count/With Diff Urgent
Comprehensive Metabolic Panel Urgent
Lipase Urgent
PTT Urgent
Prothrombin Time Urgent
Troponin I Urgent
02/13/25 08:29
CT Abd/pelvis W Iv Cont Urgent
Comment:
Reason For Exam: upper abd pain
02/13/25 09:50
SURGICAL CONSULT Urgent
Consulting Provider: Isak Marlow
Was physician already notified: Yes
Abnormal Lab Results
02/13/25
07:34
RBC 3.12 L 10^6/uL
(4.20-5.40)
Hgb 9.2 L g/dL
(12.0-16.0)
Hct 29.5 L %
(37.0-47.0)
MCHC 31.2 L g/dL
(33.0-37.0)
RDW 17.1 H %
(11.5-14.5)
Plt Count 537 H 10^3/uL
(130-400)
Abs Immat Gran (auto) 0.1 H 10^3/uL
(0-0.05)
Absolute Neuts (auto) 7.7 H 10^3/uL
(1.4-6.5)
Absolute Lymphs (auto) 0.8 L 10^3/uL
(1.2-3.4)
Immature Gran % 0.6 H %
(0-0.5)
Neutrophils % 84.5 H %
(42.2-75.2)
Lymphocytes % 8.4 L %
(20.5-51.1)
Glucose 107 H mg/dl
(70-99)
02/13/25 07:34
02/13/25 07:34
Vital Signs
Initial and Last Documented VS:
Initial Vital Signs
Temp Pulse Resp BP Pulse Ox
98.4 F 91 18 140/89 99
02/13/25 07:09 02/13/25 07:09 02/13/25 07:09 02/13/25 07:09 02/13/25 07:09
Last Documented Vital Signs
Temp Pulse Resp BP Pulse Ox
98.4 F 88 18 130/72 98
02/13/25 07:09 02/13/25 09:00 02/13/25 09:00 02/13/25 09:03 02/13/25 09:00
MDM/Problems Addressed
Differential Diagnosis Includes:
Gastritis pancreatitis reflux less likely ACS or perforation
MDM/Problems Addressed:
Upper abdominal
Chronic conditions affecting care:
GERD prior alcoholism
Acute Exacerbation and/or Progression of Chronic Illness:
GERD prior alcoholism
*Radiology
Radiology exam reviewed: radiology read reviewed
*Pulse Oximetry
SaO2: 97
Oxygen Mode of Delivery: Room air
Patient hypoxic: no
*EKG
Interpreted by ED Provider?: Yes
Interpretation: normal
Comparison EKG: no comparison EKG present
Heart Rate: 78
Rate: normal
Rhythm: sinus
Ischemia: non-specific ST changes
*[place]er Interpretation
Rate: normal
Interpretation: normal
Heart Rate: 78
Rhythm: sinus
*Critical Care Note
Total Time (30-74mins, 75-104mins- exclusive of procedures): Not Applicable
Data Reviewed
Review of Other/Old Records Reveals: Labs and Discharge Summary
Source: patient
Update Note
Update Note:
Update patient asymptomatic now not passing any blood and episode of upper abdominal pain into her back EKG noted labs are noted including lipase and LFTs
Update CT noted report noted, does fit clinically will check ultrasound surgical consult requested
ED Attending Note
-
Portions of this chart may have been created with voice recognition software.� Occasional wrong word or��sound alike� substitutions may have occurred due to the inherent limitations of voice recognition software.
Discharge Plan
Departure
Prescriptions:
No Action
paroxetine HCl 20 mg tablet
20 mg PO DAILY
simvastatin 20 mg tablet
20 mg PO QPM
gabapentin 300 mg capsule
300 mg PO HS
acetaminophen [Tylenol] 325 mg Tablet
650 mg PO Q6HPRN PRN (Reason: mild pain)
pantoprazole 40 mg tablet,delayed release (DR/EC)
40 mg PO BID 56 Days Qty: 112 0RF
calcium carbonate [Tums] 200 mg calcium (500 mg) Tablet,Chewable
200 mg PO BIDPRN PRN (Reason: gerd)
sucralfate 1 gram Tablet
1 g PO BID Qty: 60 0RF
guaifenesin 600 mg Tablet Extended Release 12hr
600 mg PO Q12 PRN (Reason: Cough) Qty: 14 0RF
Referrals:
Josue Zhu DO [Family Provider]
Interventions
Interventions:
*Risk Screen - Suicide Last Done: 02/13/25 07:09
*General Assessment Last Done: 02/13/25 07:09
*Neglect/Abuse Screening Last Done: 02/13/25 08:00
*ED- Fall Risk Assessment Last Done: 02/13/25 08:00
*ED COVID-19 Vaccine History Last Done: 02/13/25 08:00
*ED Influenza Vaccine History Last Done: 02/13/25 08:00
HC-[id number]-Kygefggucg Assessment Last Done: 02/13/25 08:00
Discharge Date and Time
Print Language: ESTONIAN
[2025-02-13] MEDS: NSS 1000 IV ×2 (10:32→20:58)
--- NOTE | 2025-02-13 11:27 | HPS.HSE ---
Addendum entered and electronically signed by Jered Ontiveros MD 02/13/25 13:38:
I personally performed a history and physical exam of the patient and discussed management with the resident. I reviewed the resident's note and agree with the documented findings and plan of care HPI/CC.
65-year-old female past medical history of recent duodenal ulcer status post endoscopy, anemia status post blood transfusion, hypertension, hyperlipidemia was presented from home with epigastric abdominal discomfort. Patient said the pain wrapped
around bilateral upper quadrants. Denies any right shoulder pain. Denies pain radiating towards the back. States last night she ate at a comment with sprague and the pain started 2 hours afterwards. Pain was around 8 or 9. She took Protonix and
Tums as intervention without much improvement in pain. This morning she states her pain around 2 out of 10. Some nausea but no vomiting. No fevers or chills. Had formed brown bowel movement yesterday.
General: No Apparent Distress
HEENT: NormoCephalic, Anicteric, Moist mucous membranes and Atraumatic
Respiratory: Clear
Cardiac: S1/S2 and Regular Rhythm
GI: Soft, nondistended, tender to palpation mild epigastric
Skin: Warm and Dry
Neuro: Awake, Alert, Oriented and AO x 3
Psych: Calm
Impression/plan
Abdominal pain likely secondary to duodenal ulcer versus low likelihood of acalculous cholecystitis versus low likelihood of cardiac related
Recent upper GI bleed due to duodenal ulcer status post intervention
Abdominal ultrasound with acalculous cholecystitis
Abdominal CAT scan was noted
LFTs normal. Lipase normal.
Troponin negative. EKG with normal sinus rhythm.
Continue to trend Trope x 2
Surgery evaluated patient recommended gastroenterology evaluation with no plan for surgery
Transition patient to IV PPI
N.p.o. till GI evaluation
Continue with carafate
Hyperlipidemia
Continue with home meds
Neuropathy
Continue gabapentin
Generalized anxiety
Continue Paxil
History of breast cancer in remission
History of alcohol use
History of tobacco use
DVT prophylaxis SCDs in the setting of severe recent upper gastrointestinal bleeding
I spent a total of 80 minutes with the patient or on the floor. More than 50% of this time involved counseling and coordination of care.
Original Note:
Family Physician
-
Family Physician: Josue Zhu DO
Chief Complaint
-
Abdominal pain
History of Present Illness
65-year-old female past medical history of hypertension, hyperlipidemia, anxiety, breast cancer, recent hospitalization for GI bleed s/p endoscopic cauterization of duodenal ulcers, s/p PRBC transfusion presents to the ER reporting acute onset
abdominal pain. The pain is localized to epigastric, radiating to the right upper quadrant and to the back. Patient was on low residue, low fiber diet after at the time of the discharge, she took Carafate, ate her dinner. The pain started around
10 PM, 12/02, she took Protonix, and Tums which did not help with the pain. Pain is associated with nausea but no vomiting. Patient denies any fever/chills, diarrhea, hematemesis, hematochezia, melena.
Medical History
Past Medical History
Past Medical History: Reports HTN and Hypercholesterolemia
Additional Past Medical History:
Breast cancer, GI bleeding s/p endoscopic cauterization of duodenal ulcers.
Past Surgical History: Reports None
Additional Past Surgical History:
Left breast biopsy
Social History
Tobacco: Former Smoker
Alcohol: Former
Drug: None
Personal: Single
Living: Alone
Family History
Family History: Other (Family history of gallbladder issues in mom, dad and sister.)
Allergies / Home Medications
Allergies reflects when Allergies were last updated in [employer].
Home Medications with original date entered in [employer]
Allergy/Medication List:
Allergies
Allergy/AdvReac Type Severity Reaction Status Date / Time
No Known Allergies Allergy Verified 02/13/25 07:10
Home Medications
gabapentin 300 mg capsule 300 mg PO HS mild Pain 01/24/24
paroxetine HCl 20 mg tablet 20 mg PO DAILY Mental Health/Anxiety 01/24/24
simvastatin 20 mg tablet 20 mg PO QPM High Cholesterol 01/24/24
acetaminophen 325 mg tablet (Tylenol) 650 mg PO Q6HPRN PRN mild pain 01/24/25
pantoprazole 40 mg tablet,delayed release 40 mg PO BID Peptic ulcer 8 weeks #112 tabs 01/29/25
calcium carbonate (Tums) 200 mg PO BIDPRN PRN gerd 02/02/25
guaifenesin 600 mg tablet, extended release 12 hr 600 mg PO Q12 PRN Cough #14 tabs 02/08/25
sucralfate 1 gram tablet 1 g PO BID #60 tabs 02/08/25
Review of Systems
-
A 12 point ROS was completed and negative except as noted: Yes
Physical Exam
Vital Signs
Vital Signs
Temp Pulse Resp BP Pulse Ox
98.4 F 92 18 137/72 98
02/13/25 07:09 02/13/25 10:00 02/13/25 10:00 02/13/25 10:00 02/13/25 10:00
Physical Exam
General: No Apparent Distress
HEENT: NormoCephalic, Anicteric, Moist mucous membranes and Atraumatic
Respiratory: Clear
Cardiac: S1/S2 and Regular Rhythm
GI: Soft, Tender (Upper epigastric, right upper quadrant) and Other (Ziegler's positive)
Skin: Warm and Dry
Neuro: Awake, Alert, Oriented and AO x 3
Psych: Calm
Laboratory Results
-
02/13/25 07:34
02/13/25 07:34
Laboratory Results
PT 12.5 Sec (11.4-14.6) 02/13/25 07:34
INR 0.89 02/13/25 07:34
APTT 24.8 Sec (23.4-35.0) 02/13/25 07:34
Total Bilirubin 0.3 mg/dl (0.2-1.3) 02/13/25 07:34
AST 34 U/L (14-36) 02/13/25 07:34
ALT 19 U/L (0-35) 02/13/25 07:34
Alkaline Phosphatase 76 U/L (38-126) 02/13/25 07:34
Troponin I < 0.012 ng/ml 02/13/25 07:34
Lipase 233 U/L (23-300) 02/13/25 07:34
Impression/Plan
-
IMPRESSION: 65-year-old female with past medical history of hypertension, hyperlipidemia, anxiety, breast cancer, GI bleeding s/p endoscopic cauterization of duodenal ulcers, s/p PRBC transfusions.
PLAN:
#Abdominal pain
Localized to epigastric and right upper quadrant region, positive Ziegler sign
Patient is afebrile, vital stable, no elevated white count
EKG�NSR, troponins negative
LFTs normal, lipase normal
CT evidence of acute cholecystitis
Ultrasonogram RUQ pending
Differentials likely duodenal ulcers versus acute acalculous cholecystitis
Will start IV fluids
Will start clear liquids
Surgery on board
GI consult
IV Protonix�twice daily
Continue Carafate
Monitor vitals, CBC
#Anemia
Likely secondary to chronic blood loss
S/p PRBC transfusion during her prior admission
Will monitor CBC
Transfuse if Hb <7
#Essential hypertension
Blood pressure stable
Patient advised to discontinue valsartan at her prior admission
Will monitor for now
#Hyperlipidemia
Continue simvastatin
#Anxiety
Continue paroxetine
#Thrombocytosis
Likely reactive secondary to anemia
Diet�clear liquids
DVT prophylaxis�SCDs
Full code
--- NOTE | 2025-02-13 11:59 | CON.GI ---
Addendum entered and electronically signed by Alyssa Urbina DO 02/13/25 16:34:
The patient was seen and examined by me independently in collaboration with the nurse practitioner.
Past medical history/social history/medications/allergies/family history reviewed.
Lab data and imaging data reviewed.
Tania Bautista is a 65 y.o. female with recent admission to recent admission to (d/c on 02/08) with very difficult to treat duodenal ulcer s/p EGD 01/24, 01/28, 02/04, treated with bicap on both 01/24 and 02/04 who returns with a gnawing
epigastric pain with radiation to her back. GI is consulted with concerns this is 2/[address] scan showed GB distension with wall thickening, pericholecystic stranding and edema c/f acute cholecystitis. She subsequently had
an US again, demonstrating changes consistent with cholecystitis, GB wall thickening with perichoelcystici fluid, +murphys sign, though, no definitive gallstones seen, likely representing acalculus choelcystitis. Of note, she had no abdominal pain
when she was here with bleeding DU.
Her hemoglobin is improved compared to hgb at discharge, 9.2 up from 8.3, BUN 12.
Given imaging findings and pain pattern, I am highly suspicious for acalculous cholecystitis. I have no reason to believe this is pain 2/2 ulcer, when all other objective findings point to improvement in her ulcer and as previously stated, she
actually never had pain from her ulcer.
She was seen by surgery who does not feel her gallbladder is the cause of her symptoms
Recommend trial of clear liquids, if she tolerates without pain, will advance in AM
If pain recurs, will obtain HIDA
If signs of active GI bleeding or hemoglobin decreasing, will repeat EGD, otherwise, no indication to repeat at this time
Discussed at length with patient and at bedside, sister on speaker phone.
Original Note:
Consultation
-
Date/Time Consultation Requested: 02/13/25 1100
Date/Time Consultation Performed: 02/13/25 1200
Requesting Provider: Vick Madden DO
Performing Provider: JOSE ALEJANDRO Torres, Floresita Urbina DO
Reason for Consultation: abdominal pain
Medical History
Chief Complaint / HPI
Chief Complaint: GI bleeding
History of Present Illness:
65-year-old female with past medical history of breast cancer, dyslipidemia, hypertension, GI bleed in 2023 with erosive gastritis and duodenal ulcer with NSAID and steroids use who was recently admitted with upper GI bleeding secondary to duodenal
ulcer with admission 01/24-01/29/25 then return 02/02-02/08/25 with multiple EGD completed. She was doing better from bleeding standpoint with brown stool and hbg 02/08 on discharge was 8.3 then 02/11-- 9.9 (outpatient labs) and now 9.2 on admission.
She now started with onset of epigastric abdominal pain about 2 hours after eating on 02/12- with pain 12/02. She is now feeling improved without eating with patient -07/02. Pain better with fasting. She admits to GERD but stable on PPI BID and
Carafate BID. She also admits to nausea without vomiting. No current NSAID use. Patient denies any alcohol consumption since her recent hospital admissions but admits to increased ETOH before recent admissions. LFT's and lipase normal.
Pt denies dysphagia, constipation, blood or black in stools. CT on admission The gallbladder is mildly distended with wall thickening and pericholecystic stranding/edema. Consolation of findings are consistent with acute cholecystitis.
Colonic diverticulosis.
01/24/25- EGD [facility] Non-obstructing Schatzki ring-sm HH . blood in gastric body and antrum, 2 non bleeding DU and one oozing DU with visible vessel inj and treated with bipolar cautery
01/28/25- EGD [facility] normal esophagus, non obs schatzki's ring, erythema stomach, non bleeding DU with flat pigmented spot- IIC neg H pylori
02/04/25- EGD [facility] - small HH, non obs schatzki's ring, gastritis, blood duodenal bulb, oozing DU treated with bipolar cautery normal second portion
04/2024- colon diverticulosis, transverse, sigmoid and descending
Past Medical History
Past Medical History: Other (Hypertension, hyperlipidemia, breast cancer,)
Social History
Tobacco: Non-Smoker
Alcohol: Other (Denies any alcohol consumption since last hospital admission 01/24/2025 )
Drug: None
Living: Alone
Employment: Retired
Family History
Family History: Other (mother with hx luna )
Allergies / Home Medications
Allergy/AdvReac Type Severity Reaction Status Date / Time
No Known Allergies Allergy Verified 02/13/25 07:10
�Medication �Instructions �Recorded
gabapentin 300 mg capsule 300 mg PO HS mild Pain 01/24/24
paroxetine HCl 20 mg tablet 20 mg PO DAILY Mental 01/24/24
Health/Anxiety
simvastatin 20 mg tablet 20 mg PO QPM High Cholesterol 01/24/24
acetaminophen 325 mg tablet 650 mg PO Q6HPRN PRN mild pain 01/24/25
(Tylenol)
pantoprazole 40 mg tablet,delayed 40 mg PO BID Peptic ulcer 8 weeks 01/29/25
release #112 tabs
calcium carbonate (Tums) 200 mg PO BIDPRN PRN gerd 02/02/25
guaifenesin 600 mg tablet, 600 mg PO Q12 PRN Cough #14 tabs 02/08/25
extended release 12 hr
sucralfate 1 gram tablet 1 g PO BID #60 tabs 02/08/25
Review of Systems
-
History Source: Patient and Family
Constitutional: Reports Other (loss then gain with bleeding)
EENT: Reports No Symptoms
Respiratory: Reports No Symptoms
Cardiac: Reports No Symptoms
Abdomen/GI: Reports Abdominal Pain and Nausea
: Reports No Symptoms
Musculoskeletal: Reports No Symptoms
Skin: Reports No Symptoms
Neurological: Reports No Symptoms
Endocrine: Reports No Symptoms
Hematologic/Lymphatic: Reports No Symptoms
Vital Signs
Temp Pulse Resp BP Pulse Ox
98.4 F 88 18 134/76 99
02/13/25 07:09 02/13/25 11:04 02/13/25 10:00 02/13/25 11:05 02/13/25 11:00
Physical Exam
Exam
General: Well Developed, Well Nourished and No Apparent Distress
HEENT: Normocephalic and Anicteric
Respiratory: Clear
Cardiac: Regular Rhythm
GI: Soft and Non Distended
Musculoskeletal: No Clubbing and No Cyanosis
Skin: Warm and Dry
Neuro: Awake, Alert and AO x 3
Psych: Calm
Results
WBC 9.1 10^3/uL (4.8-10.8) 02/13/25 07:34
Hgb 9.2 g/dL (12.0-16.0) L 02/13/25 07:34
Hct 29.5 % (37.0-47.0) L 02/13/25 07:34
MCV 94.6 fL (81.0-99.0) 02/13/25 07:34
Plt Count 537 10^3/uL (130-400) H 02/13/25 07:34
Absolute Neuts (auto) 7.7 10^3/uL (1.4-6.5) H 02/13/25 07:34
PT 12.5 Sec (11.4-14.6) 02/13/25 07:34
INR 0.89 02/13/25 07:34
APTT 24.8 Sec (23.4-35.0) 02/13/25 07:34
Sodium 137 mmol/L (135-145) 02/13/25 07:34
Potassium 4.3 mmol/L (3.5-5.1) 02/13/25 07:34
Chloride 105 mmol/L (98-107) 02/13/25 07:34
Carbon Dioxide 24 mmol/L (22-30) 02/13/25 07:34
BUN 12 mg/dl (7-17) 02/13/25 07:34
Creatinine 0.7 mg/dL (0.6-1.0) 02/13/25 07:34
Calcium 10.0 mg/dl (8.4-10.2) 02/13/25 07:34
Total Bilirubin 0.3 mg/dl (0.2-1.3) 02/13/25 07:34
AST 34 U/L (14-36) 02/13/25 07:34
ALT 19 U/L (0-35) 02/13/25 07:34
Alkaline Phosphatase 76 U/L (38-126) 02/13/25 07:34
Lipase 233 U/L (23-300) 02/13/25 07:34
Diagnostic Image Results:
CT on admission The gallbladder is mildly distended with wall thickening and pericholecystic stranding/edema. Consolation of findings are consistent with acute cholecystitis. Colonic diverticulosis.
Prior GI Procedures:
01/24/25- EGD [facility] Non-obstructing Schatzki ring-sm HH . blood in gastric body and antrum, 2 non bleeding DU and one oozing DU with visible vessel inj and treated with bipolar cautery
01/28/25- EGD [facility] normal esophagus, non obs schatzki's ring, erythema stomach, non bleeding DU with flat pigmented spot- IIC neg H pylori
02/04/25- EGD [facility] - small HH, non obs schatzki's ring, gastritis, blood duodenal bulb, oozing DU treated with bipolar cautery normal second portion
04/2024- colon diverticulosis, transverse, sigmoid and descending
Assessment / Plan
-
65-year-old female with past medical history of breast cancer, dyslipidemia, hypertension, GI bleed in 2023 with erosive gastritis and duodenal ulcer with NSAID and steroids use who was recently admitted with upper GI bleeding secondary to duodenal
ulcer with admission 01/24-01/29/25 then return 02/02-02/08/25 with multiple EGD completed. She was doing better from bleeding standpoint with brown stool and hbg 02/08 on discharge was 8.3 then 02/11-- 9.9 (outpatient labs) and now 9.2 on admission.
She now started with onset of epigastric abdominal pain about 2 hours after eating on 02/12- with pain /10. She is now feeling improved without eating with patient 2-07/02. Pain better with fasting. She admits to GERD but stable on PPI BID and
Carafate BID. She also admits to nausea without vomiting. No current NSAID use. Patient denies any alcohol consumption since her recent hospital admissions but admits to increased ETOH before recent admissions. LFT's and lipase normal. CT
on admission The gallbladder is mildly distended with wall thickening and pericholecystic stranding/edema. Consolation of findings are consistent with acute cholecystitis. Colonic diverticulosis.
01/24/25- EGD [facility] Non-obstructing Schatzki ring-sm HH . blood in gastric body and antrum, 2 non bleeding DU and one oozing DU with visible vessel inj and treated with bipolar cautery
01/28/25- EGD [facility] normal esophagus, non obs schatzki's ring, erythema stomach, non bleeding DU with flat pigmented spot- IIC neg H pylori
02/04/25- EGD [facility] - small HH, non obs schatzki's ring, gastritis, blood duodenal bulb, oozing DU treated with bipolar cautery normal second portion
04/2024- colon diverticulosis, transverse, sigmoid and descending
-epigastric pain
-CT with cholecystitis
-recent UGI bleeding with bleeding duodenal ulcer
-anemia with improved hbg from discharge
-- History of alcohol abuse. liver test normal 02/02
other med problems:
breast cancer, dyslipidemia, hypertension, GI bleed in 2023 with erosive gastritis and duodenal ulcer with NSAID and steroids use
Plan:
Etiology of bleeding related to cholesytitis as noted on CT as no prior pain with ulcer and past admission. Pt also admits to brown stools with improved hbg
pt has been on carafate which can be constipating but pt has been having regular stools doubt constipation related
await US
trend labs
LFT and Lipase stable
cont PPI and Carafate
await surgical input after US
-
-
Thank you for consultation and allowing me to participate in the patient's care. Please call the [facility] physician during the after hours with any questions or concerns.
--- NOTE | 2025-02-13 12:19 | CON.GS ---
Consultation
-
Date/Time Consultation Performed: 02/13/25
Requesting Provider: Maryanne
Performing Provider: Kashmir
Reason for Consultation: Abd pain
Medical History
-
Chief Complaint: Abd pain
History of Present Illness:
65F with recent admission for 01/24 - 01/30, then readmission 02/02 - 02/08 for DU with bleeding. P/w acute onset abd pain described as 'gnawing' pain localized to epigastrium with radiation to her back. Denies dark stools, denies emesis. Denies
f/c/n/v, presently reports significant imprvement in pain.
Past Medical History
Past Medical History: Hypercholesterolemia and Other (DU / GI bleed, breast CA)
Past Surgical History: Reviewed & Noncontributory
Social History
Tobacco: Former Smoker
Alcohol: Former
Drug: None
Personal: Partner
Living: With Family
Family History
Family History: Reviewed & Noncontributory
Allergies / Home Medications
Allergy/AdvReac Type Severity Reaction Status Date / Time
No Known Allergies Allergy Verified 02/13/25 07:10
�Medication �Instructions �Recorded �Confirmed �Type
gabapentin 300 mg capsule 300 mg PO HS mild Pain 01/24/24 02/13/25 History
paroxetine HCl 20 mg tablet 20 mg PO DAILY Mental 01/24/24 02/13/25 History
Health/Anxiety
simvastatin 20 mg tablet 20 mg PO QPM High Cholesterol 01/24/24 02/13/25 History
acetaminophen 325 mg tablet 650 mg PO Q6HPRN PRN mild pain 01/24/25 02/13/25 History
(Tylenol)
pantoprazole 40 mg tablet,delayed 40 mg PO BID Peptic ulcer 8 weeks 01/29/25 02/13/25 Rx
release #112 tabs
calcium carbonate (Tums) 200 mg PO BIDPRN PRN gerd 02/02/25 02/13/25 History
guaifenesin 600 mg tablet, 600 mg PO Q12 PRN Cough #14 tabs 02/08/25 02/13/25 Rx
extended release 12 hr
sucralfate 1 gram tablet 1 g PO BID #60 tabs 02/08/25 02/13/25 Rx
Review of Systems
-
A 10 point review of systems was completed, and was negative except as per HPI.
Physical Exam
Vital Signs
Temp Pulse Resp BP Pulse Ox
98.4 F 88 18 134/76 98
02/13/25 07:09 02/13/25 11:04 02/13/25 10:00 02/13/25 11:05 02/13/25 12:00
02/12/25 02/13/25 02/14/25
06:59 06:59 06:59
Actual Weight 56.8 kg
Body Mass Index (BMI) 22.2
Lab Results
02/13/25 07:34
02/13/25 07:34
WBC 9.1 10^3/uL (4.8-10.8) 02/13/25 07:34
Hgb 9.2 g/dL (12.0-16.0) L 02/13/25 07:34
Hct 29.5 % (37.0-47.0) L 02/13/25 07:34
Plt Count 537 10^3/uL (130-400) H 02/13/25 07:34
Abs Immat Gran (auto) 0.1 10^3/uL (0-0.05) H 02/13/25 07:34
Neutrophils % 84.5 % (42.2-75.2) H 02/13/25 07:34
Physical Exam
General: Well Developed, Well Nourished and No Apparent Distress
HEENT: Normocephalic and Anicteric
GI: Soft, Non Distended and Tender (mild-mod ttp to epigastrium, no ttp to RUQ, neg Ziegler's)
Skin: Warm and Dry
Neuro: AO x 3
Psych: Calm
Data Reviewed
-
CT Scan: Image Personally Visualized and interpreted, Report Reviewed by me, Discussed with Physician, Discussed with Patient and Discussed with Family
Ultrasound: Image Personally Visualized and interpreted, Report Reviewed by me and Discussed with Patient
Labs: Labs Reviewed by me, Discussed with Patient and Discussed with Family
Old Records: Reviewed
Assessment / Plan
-
65F with suspected pain from known gastritis/DU
AFVSS, ttp to epigastrium, 'gnawing' pain
No leukocytosis
LFTs WNL
CT with gastric wall thickening and edema by my interpretation, there is edema about the gb infundibulum as well but this fluid appears to track from the antrum/duo area
US with no gallstones, GBWT (mild) is noted, PCF also noted, these changes are likely reactive to known gastritis/duodenitis
Acalculous cholecystitis is highly unlikely in an ambulatory patient living at home
Plan:
Rec GI consult
No indication nor plan for surgical intervention at this time
Pls call with ?s
[2025-02-13] MEDS: TYLENOL 650 MG PO ×2 (13:53→22:32)
--- NOTE | 2025-02-13 14:12 | CM ---
CM reviewed chart and spoke with patient, sister Zenia and SO Pool Mcrae
Lives in a 2 story home alone. 2 [address] no DME
Independent and working, driving
no DME
PCP Dr. Josue Zhu
RX plan yes
Pharmacy [facility] in [place]
no hx of VN nor SNF
Anticipated DCP is to return home when medically stable
CM will follow up for any discharge planning needs
[2025-02-13 17:27] LABS: Troponin I < 0.012 ng/ml
[2025-02-13] MEDS: CARAFATE 1 GRAM PO (20:49)
[2025-02-13] MEDS: LIPITOR 10 MG PO (20:49)
[2025-02-13] MEDS: NSS (PRESERVATIVE FREE) IV (21:02)
[2025-02-13] MEDS: PROTONIX IV IV (21:03)
[2025-02-13 21:33] LABS: Troponin I 0.015 ng/ml
[2025-02-13] MEDS: NEURONTIN 300 MG PO (22:32)
[2025-02-14 06:29] VITALS: BP 118/75
[2025-02-14 06:43] LABS: Hematocrit 25.6 % (37.0-47.0); Hemoglobin 8.0 g/dL (12.0-16.0); Mean Corp Hgb Conc. 31.3 g/dL (33.0-37.0); Mean Corpuscular Volume 98.5 fL (81.0-99.0); Nucleated Red Blood Cells % 0 %; Platelet Count 432 10^3/uL (130-400); Red Cell Dist. Width 17.2 % (11.5-14.5)
[2025-02-14] MEDS: TYLENOL 650 MG PO ×2 (06:49→13:14)
[2025-02-14 07:04] LABS: ALT (SGPT) 15 U/L (0-35); AST (SGOT) 30 U/L (14-36); Albumin 3.4 g/dl (3.5-5.0); Alkaline Phosphatase 62 U/L (38-126); Blood Urea Nitrogen 6 mg/dl (7-17); Calcium 9.2 mg/dl (8.4-10.2); Carbon Dioxide 26 mmol/L (22-30); Chloride 112 mmol/L (98-107); Estimated Creatinine Clearance 65 ml/min; Glucose 90 mg/dl (70-99); Potassium 4.4 mmol/L (3.5-5.1); Sodium 141 mmol/L (135-145); Total Protein 6.1 g/dl (6.3-8.2); eGFR > 60.00
[2025-02-14] MEDS: PROTONIX IV 40 MG IV (07:38)
[2025-02-14] MEDS: CARAFATE 1 GRAM PO (07:38)
[2025-02-14] MEDS: NSS (PRESERVATIVE FREE) 10 ML IV (07:39)
--- NOTE | 2025-02-14 08:41 | W.PN.GI.CBS2 ---
Today's Communication / Plan
-
Advance diet. Repeat hgb at 11 AM. Possible d/c later
Assessment / Plan
-
Tania Bautista is a 65 y.o. female with recent admission to recent admission to (d/c on 02/08) with very difficult to treat duodenal ulcer s/p EGD 01/24, 01/28, 02/04, treated with bicap on both 01/24 and 02/04 who returns with a gnawing
epigastric pain with radiation to her back. GI is consulted with concerns this is 2/[address] scan showed GB distension with wall thickening, pericholecystic stranding and edema c/f acute cholecystitis. She subsequently had
an US again, demonstrating changes consistent with cholecystitis, GB wall thickening with perichoelcystici fluid, +murphys sign, though, no definitive gallstones seen, likely representing acalculus choelcystitis. Of note, she had no abdominal pain
when she was here with bleeding DU.
On admission, her hemoglobin was 9.2, up from 8.3 on day of recent d/c. Repeat this morning was 8.0, BUN 6. No melena or hematochezia.
#Epigastric pain with radiation to the back
-imaging with findings of acalculous cholecystitis
-seen by surgery
-tolerated CLD
-okay to advance to low fat/low residue, if recurrent pain, recommend obtaining HIDA
#Hx DU
#Anemia
-Hgb 9.2 --> 8.0 overnight, similar to hemoglobin on recent d/c, no signs of active bleeding
-recommend repeating Hgb at 11 AM
If patient tolerates regular diet without pain and hemoglobin remains stable without signs of bleeding, okay for d/c later today with outpatient GI follow-up.
Subjective
Subjective
Date of Service: February 14, 2025
Patient seen in follow-up. No pain with clear liquids last night for dinner. She did have an episode of liquid brown diarrhea, denies melena or hematochezia. Hgb this morning was 8, BUN 6.
Objective
Data Reviewed
Laboratory Data:
Laboratory Results
02/14/25 06:27
02/14/25 06:27
Laboratory Results
PT 12.5 Sec (11.4-14.6) 02/13/25 07:34
INR 0.89 02/13/25 07:34
APTT 24.8 Sec (23.4-35.0) 02/13/25 07:34
Total Bilirubin 0.3 mg/dl (0.2-1.3) 02/14/25 06:27
AST 30 U/L (14-36) 02/14/25 06:27
ALT 15 U/L (0-35) 02/14/25 06:27
Alkaline Phosphatase 62 U/L (38-126) 02/14/25 06:27
Lipase 233 U/L (23-300) 02/13/25 07:34
Vital Signs and I&O:
Vital Signs
Temp Pulse Resp BP Pulse Ox
98.4 F 73 18 118/75 100
02/13/25 07:09 02/14/25 06:29 02/14/25 06:29 02/14/25 06:29 02/14/25 06:29
Physical Exam
Physical Exam
HEENT: Anicteric and Moist mucous membranes
GI: Soft, Non Distended, Non Tender and Normal Bowel Sounds
[2025-02-14] MEDS: PAXIL 20 MG PO (09:24)
[2025-02-14 11:32] VITALS: BP 117/65
[2025-02-14 11:59] LABS: Hematocrit 28.5 % (37.0-47.0); Hemoglobin 8.8 g/dL (12.0-16.0); Mean Corp Hgb Conc. 30.9 g/dL (33.0-37.0); Mean Corpuscular Volume 97.3 fL (81.0-99.0); Platelet Count 500 10^3/uL (130-400); Red Cell Dist. Width 17.7 % (11.5-14.5)
--- NOTE | 2025-02-14 12:50 | W.PN.HOSP.TC ---
Today's Communication/Plan
-
Monitor for diet tolerance with lunch
Continue with PPI/Carafate
Outpatient follow-up
Assessment / Plan
Assessment / Plan
General: No Apparent Distress
HEENT: NormoCephalic, Anicteric, Moist mucous membranes and Atraumatic
Respiratory: Clear
Cardiac: S1/S2 and Regular Rhythm
GI: Soft, nondistended, tender to palpation mild ruq. No guarding, rigidity
Skin: Warm and Dry
Neuro: Awake, Alert, Oriented and AO x 3
Psych: Calm
Impression/plan
Abdominal pain likely secondary to duodenal ulcer versus low likelihood of acalculous cholecystitis versus low likelihood of cardiac related
Recent upper GI bleed due to duodenal ulcer status post intervention
Abdominal ultrasound with acalculous cholecystitis
Abdominal CAT scan was noted
LFTs normal. Lipase normal.
Troponin negative. EKG with normal sinus rhythm.
Surgery evaluated patient recommended gastroenterology evaluation with no plan for surgery
Continue with PPI twice daily
Continue with carafate
Repeat H&H stable. IV fluid discontinued. Tolerating diet.
Hyperlipidemia
Continue with home meds
Neuropathy
Continue gabapentin
Generalized anxiety
Continue Paxil
History of breast cancer in remission
History of alcohol use
History of tobacco use
DVT prophylaxis SCDs in the setting of severe recent upper gastrointestinal bleeding
Dispo plan for discharge with outpatient GI and surgery follow-up
More than 30 minutes spent in discharge including
Final examination of the patient
Summarizing hospital stay
Instructions for continuing care to all relevant caregivers
Preparation of discharge records, prescriptions, and referral forms
Total time spent (in minutes):53
Anticipated Discharge: Today
Subjective/Interval History
-
Date of Service: February 14, 2025
Mild right upper quadrant discomfort
Tolerated liquids yesterday
Tolerated breakfast this morning. Had eggs, mozzarella and muffin
No nausea or vomiting
Had liquid stools yesterday
Objective Data
-
Labs:
Laboratory Results
02/14/25 02/14/25
06:27 11:36
WBC 6.4 7.3
Hgb 8.0 L 8.8 L
Hct 25.6 L 28.5 L
Plt Count 432 H 500 H
Sodium 141
Potassium 4.4
Chloride 112 H
Carbon Dioxide 26
BUN 6 L
Creatinine 0.7
Glucose 90
Calcium 9.2
Total Bilirubin 0.3
AST 30
ALT 15
Alkaline Phosphatase 62
Vital Signs:
Vital Signs
Temp Pulse Resp BP Pulse Ox
98 F 89 16 117/65 99
02/14/25 11:32 02/14/25 11:32 02/14/25 11:32 02/14/25 11:32 02/14/25 11:32
--- NOTE | 2025-02-14 14:01 | W.DCSUMMARY ---
Discharge Summary
Discharge Data
Date of Admission: 02/13/25
Date of Discharge: 02/14/25
-
Pending Results: No
Hospital Course
65-year-old female past medical history of hypertension, hyperlipidemia, anxiety, breast cancer, recent hospitalization for GI bleed s/p endoscopic cauterization of duodenal ulcers, s/p PRBC transfusion presents to the ER reporting acute onset
abdominal pain. The pain is localized to epigastric, radiating to the right upper quadrant and to the back. CT abdomen pelvis showed The gallbladder is mildly distended with wall thickening and pericholecystic stranding/edema. Consolation of
findings are consistent with acute cholecystitis. Abdomen US was ordered which showed There is gallbladder wall thickening with pericholecystic fluid and a positive Ziegler's sign consistent with acute cholecystitis. No definite gallstones are
visualized which likely represents acalculus cholecystitis. Patient LFTs were found to be normal. Patient was evaluated by general surgery and gastroenterology. Per general surgery, no plan for cholecystectomy. Per general surgery correspondence
which stated there is edema about the gallbladder infundibulum as well but this fluid appears to track from the antrum/duodenum area. Gastroenterology evaluated patient. Patient was tolerating liquid diet and thus we started on low-fat diet.
Patient was able to tolerate low-fat diet without any difficulty. IV fluid was discontinued. Patient was recommended to continue to monitor his symptoms and follow-up outpatient with gastroenterology and general surgery.
Discharge Plan
-
Patient Disposition: Home (Routine Discharge)
Discharge Diagnosis/Procedures: Abdominal pain likely secondary to duodenal ulcer
Acalculous cholecystitis
Condition: Fair
Diet: Low Fat
Activity: As tolerated
Driving Restrictions: As prior to admission
Referrals:
Isak Marlow MD [Active, Surgical]
Josue Zhu DO [Family Provider] - in less than 1 week
Alyssa Urbina DO [Active, Gastroenterology]
Prescriptions:
Continued
paroxetine HCl 20 mg tablet
20 mg PO DAILY
simvastatin 20 mg tablet
20 mg PO QPM
gabapentin 300 mg capsule
300 mg PO HS
acetaminophen [Tylenol] 325 mg Tablet
650 mg PO Q6HPRN PRN (Reason: mild pain)
pantoprazole 40 mg tablet,delayed release (DR/EC)
40 mg PO BID 56 Days Qty: 112 0RF
calcium carbonate [Tums] 200 mg calcium (500 mg) Tablet,Chewable
200 mg PO BIDPRN PRN (Reason: gerd)
sucralfate 1 gram Tablet
1 g PO BID Qty: 60 0RF
guaifenesin 600 mg Tablet Extended Release 12hr
600 mg PO Q12 PRN (Reason: Cough) Qty: 14 0RF
Discharge Orders:
Discharge Patient (As Directed); Ordered 02/14/25
Ordered By: Jered Ontiveros
Discharge Date and Time
Print Language: ITALIAN
--- NOTE | 2025-02-14 14:07 | PTCARENOTE ---
Pt ate 100% lunch tray - tuna sandwich, pudding, apple juice. Pt tolerated well. Denies abd pain or nausea. Hospitalist made aware and putting pt in for discharge.
--- NOTE | 2025-02-15 12:39 | W.PN.UPDATE ---
Update Note
Progress Note Update
In discussion with physician advisor patient case was reviewed. Patient status was changed to postsurgical recovery from inpatient and patient was discharged from postsurgical recovery and not inpatient.
== END 2025-02-14 15:10 | disposition home or self-care (01) ==
LOC: SDS 12:59
PROVIDERS: Student in an Organized Health Care Education/Training Program; ATTENDING PHYSICIAN Hospitalist; CONSULT PHYSICIAN Internal Medicine; CONSULT PHYSICIAN Surgery; EMERGENCY PHYSICIAN Emergency Medicine; FAMILY PHYSICIAN Family Medicine
DX: R10.13 Epigastric pain (principal); K81.0 Acute cholecystitis; K26.4 Chronic or unspecified duodenal ulcer with hemorrhage; E78.00 Pure hypercholesterolemia, unspecified; I10 Essential (primary) hypertension; G62.9 Polyneuropathy, unspecified; F41.1 Generalized anxiety disorder; D64.9 Anemia, unspecified; K21.9 Gastro-esophageal reflux disease without esophagitis; Z79.899 Other long term (current) drug therapy; Z85.3 Personal history of malignant neoplasm of breast; Z87.11 Personal history of peptic ulcer disease; Z87.891 Personal history of nicotine dependence
CPT/HCPCS: 99285; 74177; 76700; 80053; 83690; 84484; 85025; 85027; 85610; 85730; 86850; 86900; 86901; 93005; 96360; Q9967

== ENCOUNTER → 2025-04-24 11:18 | Outpatient (REF) | payer MEDICARE, SELFPAY | LOC: HWWDC 11:18 | PROVIDERS: ATTENDING PHYSICIAN Family Medicine; FAMILY PHYSICIAN Family Medicine | DX: Z12.31 Encounter for screening mammogram for malignant neoplasm of breast (principal) | CPT/HCPCS: 77063; 77067 ==